=== PATIENT | female | born 1950 | race Caucasian/White ===

== ENCOUNTER 2017-07-02 07:35 | Day surgery (SDC) | payer OTHER ==
--- NOTE | 2017-06-30 22:16 | HP ---
PREOPERATIVE HISTORY AND PHYSICAL: DATE OF SURGERY/ADMISSION: 07/02/17 [facility] DATE OF OFFICE VISIT/ENCOUNTER: 06/30/17 PRIMARY CARE PHYSICIAN: Dr. Lundberg. ATTENDING PHYSICIAN: Saba Foster MD * (DICTATED BY CATHY [place]) PROCEDURE: Open reduction and internal fixation, right wrist. CHIEF COMPLAINT: Right distal radius fracture. HISTORY OF PRESENT ILLNESS: This is a 66-year-old female who sustained injury to her right wrist on or about 06/23/17 when she was visiting family in [place]. She tripped on a sidewalk and fell on an outstretched right hand. She was seen at a hospital at [facility] and had a distal radius fracture reduced. Postreduction x-ray showed improved alignment. She recently followed up with Dr. Foster and updated x- rays showed some early collapse, but otherwise reasonably good alignment. There is a significant ulna positive variance due to the collapse. She does not have any associated numbness or tingling. After evaluation and review of the x-rays by Dr. Foster, it is recommended that the patient undergo an open reduction and internal fixation of the right wrist. The patient has consented to proceed. The patient is currently experiencing chronic cough and is being followed by Dr. Gama, a baggage agent supervisor. She has an appointment with her on 07/19/17. To this point, the workups have been inconclusive. PAST MEDICAL HISTORY: 1. Chronic cough. 2. Osteoarthritis. 3. Peripheral neuropathy with unclear etiology. 4. History of pneumonia in 1994. PAST SURGICAL HISTORY: Appendectomy. MEDICATIONS: Citalopram hydrobromide 40 mg daily. ALLERGIES: No known drug allergies. FAMILY MEDICAL HISTORY: Heart disease, colon cancer, intestinal cancer, and breast cancer. SOCIAL HISTORY: The patient is retired. She denies tobacco and recreational drug use. She does drink alcohol on occasion. REVIEW OF SYSTEMS: General: Negative for fevers, chills, or night sweats. No known anesthesia problems. HEENT: Negative for headache, lightheadedness or syncopal episodes. Integumentary: Negative for abrasions, lesions, or open wounds. Cardiothoracic: Negative for hypertension, chest pain, palpitations, or edema. Pulmonary: Positive for chronic cough. Negative for shortness of breath with exertion or COPD. GI: Negative for nausea, vomiting, diarrhea, constipation or GERD. : Negative for nocturia, urinary frequency, urgency, history of UTIs or kidney problems. Musculoskeletal: Positive for current complaint. Negative for chronic or intermittent back pain or history of fractures. Neurologic: Negative for paresthesias, numbness, history of seizure, stroke or epilepsy. Endocrine: Negative for diabetes and thyroid issues. Hematologic: Negative for easy bruising, anemia, excessive bleeding, or history of DVT. Infectious Disease: Negative for history of MRSA, hepatitis C, and HIV. PHYSICAL EXAMINATION GENERAL: Well-developed, well-nourished 66-year-old female, in no acute distress. VITAL SIGNS: Height 5 feet 7.5 inches, weight 138 pounds, pulse rate 80, blood pressure 108/70. HEENT: Normocephalic, atraumatic. Pupils are equal, round, and reactive to light and accommodation. Throat is clear. NECK: Supple. No palpable lymph nodes. PULMONARY: Lungs are clear to auscultation bilaterally. No wheezes, rales, or rhonchi. CARDIOVASCULAR: Regular rate and rhythm. S1, S2. No murmurs, rubs, or gallops. No edema. ABDOMEN: Positive bowel sounds, soft, nontender. MUSCULOSKELETAL: On exam of her right wrist, she has mild ecchymosis and swelling of the fingers. Arm is maintained in a sugar tong splint. She can move her fingers well in flexion and extension. Neurovascular function is intact. NEUROLOGIC: Alert and oriented x3. Cranial nerves II through XII are intact. Sensation is intact to light touch. IMAGING STUDIES: X-rays AP, lateral and oblique taken of the right wrist show a distal radius fracture with some early collapse. There is significant ulna positive variance, but otherwise recently good alignment. IMPRESSION: Right distal radius fracture with some early collapse. PLAN: The patient is scheduled to undergo an open reduction and internal fixation of the right wrist with Dr. Foster on 07/02/17. She will return to the office in 10 to 14 days postop for followup and suture removal. She has Percocet at home, which was prescribed for her by the emergency room in [place] and we will plan on refilling that if needed for postoperative pain. CATHY [place] [id number]/[facility] #: [id number] [facility] CENTERShana
[~2017-07-02 07:35] MED LIST: Buffered Lidocaine 0.9% SYRIN* 5 ML/SYR SYRINGE INTRADERM ONE; Sodium Citrate/Citric Acid* 15 ML UDC PO ONE
[2017-07-02] MEDS ORDERED: ceFAZolin 2 GM PREMIX (*) 2 GM/50 ML BAG IVPB ONE (07:46)
[2017-07-02] MEDS ORDERED: Sodium Citrate/Citric Acid* 15 ML UDC ONE (07:49)
[2017-07-02] MEDS ORDERED: Bupivacaine 0.5% SDV PF* 30 ML VIAL ONE (08:07)
[2017-07-02] MEDS ORDERED: Buffered Lidocaine 0.9% SYRIN* 5 ML/SYR SYRINGE ONE (08:18)
[2017-07-02] MEDS ORDERED: fentaNYL* 50 MCG/ML 2 ML VIAL (100 MCG VIAL) ONE (08:36)
[2017-07-02] MEDS ORDERED: Propofol* 10 MG/ML 20 ML BTL IV PUSH ONE (08:36)
[2017-07-02] MEDS ORDERED: Ketorolac INJ* 30 MG/ML 1 ML VIAL ONE ×2 (08:36→09:18)
[2017-07-02] MEDS ORDERED: fentaNYL* 50 MCG/ML 2 ML VIAL (100 MCG VIAL) IV PRN (08:46)
[2017-07-02] MEDS ORDERED: DiMENhydriNATE IV* 50 MG/ML VIAL IV PUSH PRN (08:46)
[2017-07-02] MEDS ORDERED: Dexamethasone IV* 4 MG/ML 1 ML (4 MG) ONE (09:05)
[2017-07-02] MEDS ORDERED: oxyCODONE/Acetamin 5/325 MG* TAB ONE (10:38)
[2017-07-02 11:02] VITALS: BP 100/60
--- NOTE | 2017-07-02 15:00 | RAD ---
CPT II Codes: 6045F INDICATION: Right wrist traumatic fracture 2 views of the right wrist demonstrates internal fixation of a distal radius fracture. Approximately 21 seconds of fluoroscopy time was used. IMPRESSION: Fluoroscopic services provided for referring physician for internal fixation distal radius fracture.
--- NOTE | 2017-07-02 23:36 | OP ---
CC: Dr. Foster OPERATIVE REPORT: DATE OF OPERATION: 07/02/17 DATE OF : 54 SURGEON: Saba Foster MD CENTER DIRECTOR LEAD TEACHER: CATHY Mahajan ANESTHESIA: General. PRE-OP DIAGNOSIS: Right distal radius fracture, comminuted and intra-articular. POST-OP DIAGNOSIS: Right distal radius fracture, comminuted and intra-articular. OPERATIVE PROCEDURE: Open reduction and internal fixation of the right distal radius. ESTIMATED BLOOD LOSS: Zero. TOURNIQUET TIME: About 30 minutes. INDICATION FOR PROCEDURE: Starla is a 66-year-old woman who tripped on side walk and fell, injuri ng her right wrist. She had a markedly displaced comminuted intra- articular distal radius fracture . She was seen in the hospital in [facility]. The fracture was reduced. She was splinted and sh tita is followed up with me 1 week later. X-ray at that time showed some early collapse of the fractur e fragments with shortening and loss of palmar tilt. She presents for open reduction and internal f ixation of the right distal radius. DESCRIPTION OF PROCEDURE: The patient was brought to the operating room, was given a general anesth etic and placed in the supine position on the operating table with the tourniquet around her right u pper arm. The skin of her right upper extremity was prepped and draped in the usual sterile fashion . The hand and forearm were exsanguinated and the tourniquet elevated to 250 mmHg. A longitudinal incision was made centered over the FCR tendon. We dissected sharply through the FCR tendon sheath superficial and deep and then retracted the FPL muscle ulnarly. The certified surgical tech/first assistant, Constance ponce, was essential for the completion of the case for retracting the radial artery and tendons. The pronator quadratus muscle was then incised in L-shaped fashion and subperiosteally dissected off th e distal radius. The fracture fragments were reduced with longitudinal traction and manipulation an d then a narrow 3-hole plate from the [employer] distal radius variable angle set was secured with four distal screws and three proximal screws. The position of the hardware and fracture fragments were checked on the C-arm in the AP and lateral views and found to be essentially anatomic. The wound wa s irrigated and the pronator quadratus was repaired over the plate. The flexor carpi radialis sheat h was repaired with 2-0 Vicryl suture and then the skin edges were reapproximated with 4-0 nylon sut ure. The wound was dressed with Xeroform, 4x4, Webril, and a volar splint. The patient tolerated t he procedure well and was brought to the recovery room in good condition. [id number]/[facility] #: [id number]
== END 2017-07-02 11:00 | disposition home or self-care (01) ==
LOC: OREAST 07:35
PROVIDERS: ATTEND Orthopaedic Surgery
DX: S52.571A Other intraarticular fracture of lower end of right radius, initial encounter for closed fracture (principal); W01.0XXA Fall on same level from slipping, tripping and stumbling without subsequent striking against object, initial encounter; Y92.9 Unspecified place or not applicable
CPT/HCPCS: 76000; A9270-GY; C1713; C1776; J0690; J1100; J1885; J2704; J3010

== ENCOUNTER 2018-11-17 18:54 | Observation (INO) | payer OTHER ==
--- OUTSIDE RECORDS SUMMARY | 2018-11-17 19:06 | XMS REPORT | Continuity of Care Document ---
:1950 External Reference #:[id number] Author Name Zuleyka Hung NP Address [address] [facility] [place] [address] Care Team Providers Name Role Phone Ramakrishna Lundberg MD Care Team Information Manufacturing Executive Unavailable Ramakrishna Lundberg MD Primary Care Physician Unavailable Payers Date Identification Numbers Payment Provider Subscriber Effective: 2017 Policy Number: [id number] [employer] Starla Varela PayID: [id number] [address] [place] [address] Advance Directives Description No Information Available Problems Date Description Provider Status Onset: 05/13/2012 Symptom of skin and integumentary Ramakrishna Lundberg M.D. Active tissue Onset: 05/13/2012 Osteoporosis Ramakrishna Lundberg M.D. Active Onset: 05/13/2012 Depressive disorder Ramakrishna Lundberg M.D. Active Onset: 03/24/2013 Idiopathic peripheral neuropathy Ramakrishna Lundberg M.D. Active Onset: 03/24/2013 Hematuria syndrome Ramakrishna Lundberg M.D. Active Onset: 11/05/2014 Acute bronchitis Ramakrishna Lundberg M.D. Inactive Inactive: 01/08/2017 Onset: 11/05/2014 Chest pain Ramakrishna Lundberg M.D. Inactive Inactive: 01/08/2017 Onset: 11/22/2015 Family history of malignant Ramakrishna Lundberg M.D. 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 Inactive thigh Inactive: 01/08/2017 Onset: 04/06/2016 Cough Ramakrishna Lundberg M.D. Inactive Inactive: 01/08/2017 Family History Date Family Member(s) Observation Comments Onset: (age 55 Years) Father [place] smoker, Onset: (age 73 Years) Mother Colon Cancer First Sister Multiple Sclerosis (MS) First Sister Ankylosing Spondylitis Social History Type Date Description Comments Sex Unknown Marital Status Patient is Living Situation Lives with spouse General retired peoples [email or web address] Tobacco Use Start: Unknown Never Smoked Cigarettes ETOH Use Social Alcohol Recreational Drug Use Denies Drug Use Tobacco Use Start: Unknown Patient has never smoked Exercise Type/Frequency Current occ walks, bicycle Allergies, Adverse Reactions, Alerts Date Description Reaction Status Severity Comments 08/13/2006 codeine Active Rash Medications Medication Date Status Form Strength Qnty SIG Indications Ordering Provider Amoxicillin/Clavu 11/17 Active Tablets 875-125mg 14tab take one J15.9 Zuleyka C. lanate Potassium /2018 s by mouth Abhilash, twice DIRECTOR OF EVENT [employer] daily until gone Ondansetron HCL 11/17 Active Tablets 4mg 15tab take one J15.9 Zuleyka C. /2018 s by mouth Abhilash, every 6 [employer]OR OF EVENT [employer]NAGEMENT hours as needed for vomiting Ventolin HFA 11/17 Active Aerosol 108(90Bas 18gm take 1-2 J15.9 Zuleyka C. /2018 e) puffs Abhilash, mcg/Act inhaled [employer] every 4 hours as needed for wheezing or tightness in the chest Citalopram 10/12 Active Tablets 40mg 90tab Take 1 Ramakrishna F. Hydrobromide /2018 s Tablet By Toño Mouth M.D. Every Day Fluocinonide 01/08 Active Cream 0.05% 60gm apply to Ramakrishna F. affected Shallish, area three M.D. times a day Spiriva Respimat 00 Active Aerosol 1.25mcg/A inhale 1 Unknown /0000 ct puff at hs Breo Ellipta 0000 Active Aerosol 100-25mcg 1 puff Unknown /0000 /Inh once in the am Incruse Ellipta Active Aerosol 62.5mcg/I 1 puff Unknown /0000 nh daily Medrol 11/26 Hx Tablets 4mg 1pack dose-pack R05 as Nathan, - instructed EXECUTIVE ASSISTANT 12/11 Tessalon Perles 11/26 Hx Capsules 100mg 30cap one to two R0 s tabs by Nathan, - mouth EXECUTIVE ASSISTANT 11/26 times a day as needed cough Cheratussin ac 11/26 Hx Syrup 100-10mg/ 118ml 5-10 mL by 5ML mouth Nathan, - every EXECUTIVE ASSISTANT 12/11 night at bedtime as needed cough Mometasone 11/21 Hx Cream 0.1% 45gm apply Ramakrishna F. Furoate three Shallish, - times a M.D. 01/08 day as needed Sulfamethoxazole/ 12/06 Hx Tablets 800-160mg 14tab take 1 Ramakrishna F. Trimethoprim s tablet by Toño, - mouth 2 M.D. 12/11 times a day Methylprednisolon 12/06 Hx Tablets 4mg 1tabs as Ramakrishna F. e (Philip) /2014 directed Toño, - M.D. 12/11 Benzonatate 12/06 Hx Capsules 100mg 30cap 1 po tid 466.0 Ramakrishna F. s prn for Toño, - cough M.D. 12/11 Azithromycin 11/05 Hx Tablets 250mg 10tab 2 by mouth Ramakrishna F. s every day Toño, - for 3 M.D. 11/19 days, 1 by mouth every day for 4 days Azithromycin 02/14 Hx Tablets 250mg 6tabs 2 po today 466.0 and 1 tab DEONDRE Melgar - x 4 days 02/19 Tobramycin 02/14 Hx Solution 0.3% 5ml 2 gtts in 372.00 Teresa os tid x Ramón DIRECTOR OF EVENT MANAGEMENT - 7 days 05/09 Benzonatate 02/14 Hx Capsules 100mg 30cap 1 po tid 466.0 Teresa s prn for DEONDRE Melgar - cough 02/24 Celexa 11/18 Hx Tablets 40mg 90tab Take 1 Ramakrishna F. s Tablet By Toño, - Mouth M.D. 10/12 Every Day Zostavax 10/06 Hx Solution [id number]/ 1dose inject Ramakrishna F. Rec 0.65ML [facility], - M.D. 05/09 Doxycycline 06/27 Hx Capsules 100mg 20cap 1 po bid Trisha Hyclate s Juan Luis, - Afnp-C 07/07 Fluocinonide 03/24 Hx Cream 0.05% 30gm apply to Ramakrishna F. affected [facility], - area qd M.D. 06/27 prn Zostavax 03/24 Hx Solution [id number]/ 1dose inject Ramakrishna F. Rec 0.65ML Shallish, - M.D. 06/27 Ergocalciferol 03/24 Hx Capsules [id number] 15cap 1 capsule Ramakrishna F. s po every Shallish, - week for 4 M.D. 09/29 weeks, ,then 1 po qmonth Mometasone 05/13 Hx Cream 0.1% 45gm apply tid Ramakrishna F. Fur prn [facility], - M.D. 03/24 Septra DS 08/23 Hx Tablets 800-160mg 14tab 1 po bid Tray T. s Twin, - M.D. 12/09 Zithromax 07/29 Hx Tablets 250mg 1tabs 2 po qd 466.0 Melba M. /2009 today , Reginald, - then 1 po M.D. 08/07 qd times Robitussin A-C 07/29 Hx 4Oz 1-2 tsp po 466.0 Melba M. q6h prn Reginald, - cough M.D. 08/23 Tessalon Perles 07/15 Hx Capsules 200mg 30cap 1 tid prn Trisha s cough Juan Luis, - Afnp-C 07/25 Doxycline 07/15 Hx Capsules 100mg 20cap 1 po bid Trisha s Juan Luis, - Afnp-C 07/25 Fluocinonide 12/17 Hx Cream 0.05% 30gm apply to Ramakrishna F. affected [facility], - area tid M.D. 04/16 Doxycycline 06/27 Hx Capsules 100mg 2caps 2 p0 x 1 911.4 Trisha Hyclate /2007 Juan Luis, - Afnp-C 06/28 Zyrtec 01/13 Hx Tablets 10mg 30tab 1 po qd 782.1 Crystal gemma Crocker, - EXECUTIVE ASSISTANT 12/17 Boniva 12/11 Hx Tablets 150mg 6tabs 1 po Ramakrishna F. qmonth Phuong Lundberg M.D. 06/18 Fish Oil 05/11 Hx 1000mg 1 PO qd [facility] 05/09 [place] Vitamin E 05/11 Hx Capsules 400Units 0caps 1 PO qd [facility] 09/29 [place] Multivitamin With 05/11 Hx 100un 1 PO qd its [facility] 11/25 [place] Calcium+Vit.D 05/11 Hx 600mg 1 po qd [facility] 09/29 [place] Vicodin 08/13 Hx Tablets 5mg;500 120ta 1 PO Q6H Valerie /2006 mg bs prn Phuong Mejia M.D. 05/11 Calcium Citrate 06/03 Hx Capsules 1,500mg Gera JYash With D And MG. /2005 Of Phuong Blackman CalcYash/D MTayla 05/11 Omacor 06/03 Hx 1Gram 90uni 1 gram tid Gera Gooden /2005 ts Phuong Blackman M.D. 05/11 depression Ciprofloxacin 04/24 Hx Tablets 250mg 10tab 1 po bid x Shaheed Gooden /2005 s 5 days Phuong Pond M.D. 06/03 Fosamax 03/26 Hx Tablets 70mg Gera JYash /2005 Phuong Blackman M.D. 06/03 Actonel 11/30 Hx Tablets 35mg 0tabs 1 PO qweek [facility] 03/26 [place] Fish Oil - [place] 11/30 Hx 1000mg A day Gera JYash 3 Fa. /2005 Phuong Blackman M.D. 06/03 Celexa 01/20 Hx Tablets 40mg 90tab Take 1 Ramakrishna F. s Tablet By Toño - Awilda M.Zackary 09/29 Every Day Bactrim DS 01/09 Hx 6unit 2 PO qd , Trisha s 1 PO bid X [place], - 2 More Afnp-C Levaquin 09/02 Hx 500mg 10uni 1 qd Chayo R ts Casa, - EXECUTIVE ASSISTANT-C 01/09 Pyridium 09/02 Hx 100mg 15uni 1 po tid Chayo ts prn Casa, - EXECUTIVE ASSISTANT-C 01/09 Calcium With Vit 04/25 Hx 600mg 1 bid Gera J. D /2003 Phuong Blackman M.D. 06/03 Trazodone 04/25 Hx 50mg 30uni 1 po qhs Gera J. /2003 Phuong Palmer M.D. 01/09 Diprolene AF 01/22 Hx Cream 0.05% 15gm apply bid Gera J. to rash as Hiral - dir Monica 01/09 Clarinex 01/22 Hx 5mg 30uni 1 qd Gera J. /2003 Phuong Palmer M.D. 01/09 Entex LA 10/03 Hx 20uni 1/2-1 po Trisha /2003 ts bid [place], - prn/sinus Afnp-C 10/13 Lexapro 10/24 Hx 20mg 45uni 1 12 po Gera J. /2002 ts qd Phuong Blackman M.D. 01/20 Klonopin 10/24 Hx 0.5mg 60uni 1 PO bid Gera J. /2002 Phuong Palmer M.D. 03/08 Zoloft 06/12 Hx 25mg 1Star 1 PO qd, Marcellus A. /2001 [employer] To 2 Darlow, - qd In 1 M.D. Work Excuse 10/10 Hx Unable To Tray T. /2001 Work Twin, - 09/29/01-2/ MTayla 01/10 10/11. January Return To Work 11/11/01 Tylenol #3 09/29 Hx #3 30uni 1 Or 2 Q Tray TYash /2001 ts 6H prn Twin - M.DYash 01/10 Naproxen 09/29 Hx 500mg 40uni 1 bid With Tray T. /2001 ts Food prn Twin, - Pain M.D. 01/10 Naproxen 07/13 Hx 375mg Tab 30uni 1 PO tid ts prn Raoul, - Afnp-C 07/23 Forteo Hx Solution 600mcg/2. 20 mcg qd Unknown /0000 4ML - 11/15 Strattera Hx Capsules Unknown /0000 - 10/06 Lexapro Hx Tablets 40mg 1 po qd Unknown /0000 - 02/14 Immunizations CPT Code Status Date Vaccine Lot # [id number] Given 07/07/2018 High-Dose, Influenza Virus Vacccine-fluzone 65 and older [id number] Given 06/15/2017 Influenza vac quadrivalent preservative free 3yrs and up 97230 Given 10/06/2013 Preservative free flu 3 yrs+ and older [id number] 85451 Given 05/13/2012 DO Not Use Split Influenza Virus Vaccine [id number] 87765 Given 06/30/2011 DO Not Use Split Influenza Virus Vaccine [id number] 97898 Given 06/21/2010 DO Not Use Split Influenza Virus Vaccine [id number] 60522 Given 10/01/2009 H1N1 Virus Vaccine [id number] 88311 Given 10/01/2009 H1N1 Immunization Intramuscular/Intranasal W Counseling 67164 Given 06/18/2008 DO Not Use Split Influenza Virus Vaccine [id number] 24780 Given 12/12/2007 Tdap Tetanus, W Pertussis [id number] 55405 Given 07/29/2006 DO Not Use Split Influenza Virus Vaccine [id number] 90713 Given 07/28/2005 DO Not Use Split Influenza Virus Vaccine 80781 Given 04/25/2004 Td Immunization, For Use In Individuals 7 Years Or Older 52526 Given 07/31/2003 DO Not Use Split Influenza Virus Vaccine 65050 Given 07/31/2003 DO Not Use Split Influenza Virus Vaccine 11263 Given 07/08/1999 DO Not Use Split Influenza Virus Vaccine 20585 Given 07/30/1998 Influenza Immunization 92996 Given 07/11/1997 Influenza Immunization Vital Signs Date Vital Result Comment 11/17/2018 1:01pm BP Systolic 120 mmHg BP Diastolic 70 mmHg Heart Rate 68 /min Body Temperature 103.4 F Respiratory Rate 16 /min Weight 136.00 lb 01/27/2018 2:31pm BP Systolic 104 mmHg BP Diastolic 60 mmHg Heart Rate 78 /min Body Temperature 98.1 F Respiratory Rate 16 /min Height 67.5 inches 5'7.50" Weight 142.12 lb BMI (Body Mass Index) 21.9 kg/m2 11/26/2017 12:56pm BP Systolic 102 mmHg BP Diastolic 70 mmHg Heart Rate 106 /min Body Temperature 98.1 F Height 67.5 inches 5'7.50" Weight 141.00 lb BMI (Body Mass Index) 21.8 kg/m2 04/26/2017 8:59am BP Systolic 108 mmHg BP Diastolic 74 mmHg Heart Rate 76 /min Body Temperature 98.6 F Height 67.5 inches 5'7.50" Weight 143.25 lb BMI (Body Mass Index) 22.1 kg/m2 01/08/2017 2:19pm BP Systolic 110 mmHg BP Diastolic 60 mmHg Heart Rate 64 /min Body Temperature 98.2 F Respiratory Rate 16 /min Height 67.5 inches 5'7.50" Weight 143.00 lb BMI (Body Mass Index) 22.1 kg/m2 04/06/2016 11:08am BP Systolic 110 mmHg BP Diastolic 58 mmHg Heart Rate 64 /min Body Temperature 98.8 F Respiratory Rate 16 /min Height 67.5 inches 5'7.50" Weight 145.00 lb BMI (Body Mass Index) 22.4 kg/m2 11/22/2015 10:32am BP Systolic 118 mmHg BP Diastolic 60 mmHg Heart Rate 60 /min Body Temperature 97.9 F Respiratory Rate 16 /min Height 67.5 inches 5'7.50" Weight 143.00 lb BMI (Body Mass Index) 22.1 kg/m2 05/08/2015 9:27am BP Systolic 110 mmHg BP Diastolic 64 mmHg Heart Rate 68 /min Body Temperature 98.0 F Respiratory Rate 16 /min Height 67.5 inches 5'7.50" Weight 145.00 lb BMI (Body Mass Index) 22.4 kg/m2 12/06/2014 1:02pm BP Systolic 114 mmHg BP Diastolic 60 mmHg Heart Rate 66 /min Body Temperature 98.5 F Respiratory Rate 16 /min O2 % BldC Oximetry 97 % Weight 143.12 lb 11/05/2014 4:01pm BP Systolic 110 mmHg BP Diastolic 60 mmHg Heart Rate 84 /min Body Temperature 99.0 F Respiratory Rate 18 /min O2 % BldC Oximetry 97 % Height 67.5 inches 5'7.50" Weight 142.00 lb BMI (Body Mass Index) 21.9 kg/m2 05/09/2014 4:18pm BP Systolic 118 mmHg BP Diastolic 72 mmHg Heart Rate 72 /min Body Temperature 98.1 F Respiratory Rate 16 /min Height 67.5 inches 5'7.50" Weight 136.00 lb BMI (Body Mass Index) 21.0 kg/m2 02/14/2014 9:17am BP Systolic 110 mmHg BP Diastolic 60 mmHg Heart Rate 80 /min Body Temperature 99.0 F Respiratory Rate 16 /min Height 67.5 inches 5'7.50" Weight 136.00 lb BMI (Body Mass Index) 21.0 kg/m2 10/06/2013 1:35pm BP Systolic 112 mmHg BP Diastolic 60 mmHg Heart Rate 72 /min Body Temperature 98.1 F Respiratory Rate 16 /min Height 67.5 inches 5'7.50" Weight 138.00 lb BMI (Body Mass Index) 21.3 kg/m2 09/29/2013 11:57am BP Systolic 100 mmHg BP Diastolic 72 mmHg Heart Rate 84 /min Body Temperature 96.7 F Respiratory Rate 15 /min O2 % BldC Oximetry 99 % Height 67.5 inches 5'7.50" Weight 168.00 lb BMI (Body Mass Index) 25.9 kg/m2 06/27/2013 1:01pm BP Systolic 102 mmHg BP Diastolic 70 mmHg Heart Rate 76 /min Body Temperature 97.7 F Respiratory Rate 18 /min O2 % BldC Oximetry 98 % Height 67.5 inches 5'7.50" Weight 133.00 lb BMI (Body Mass Index) 20.5 kg/m2 03/24/2013 3:52pm BP Systolic 112 mmHg BP Diastolic 70 mmHg Heart Rate 72 /min Body Temperature 97.0 F Respiratory Rate 12 /min Height 67.5 inches 5'7.50" Weight 134.00 lb BMI (Body Mass Index) 20.7 kg/m2 07/19/2012 9:58am BP Systolic 104 mmHg BP Diastolic 60 mmHg Heart Rate 76 /min Body Temperature 97.7 F Height 67.5 inches 5'7.50" Weight 138.00 lb BMI (Body Mass Index) 21.3 kg/m2 05/13/2012 2:51pm BP Systolic 100 mmHg BP Diastolic 70 mmHg Heart Rate 72 /min Body Temperature 97.5 F Height 67.5 inches 5'7.50" Weight 138.00 lb BMI (Body Mass Index) 21.3 kg/m2 12/09/2010 8:31pm BP Systolic 100 mmHg BP Diastolic 60 mmHg Heart Rate 68 /min Respiratory Rate 15 /min Height 67.5 inches 5'7.50" Weight 134.00 lb BMI (Body Mass Index) 20.7 kg/m2 08/23/2010 11:19am BP Systolic 94 mmHg BP Diastolic 60 mmHg Heart Rate 105 /min Body Temperature 98.7 F O2 % BldC Oximetry 96 % Height 67.5 inches 5'7.50" Weight 139.00 lb BMI (Body Mass Index) 21.4 kg/m2 07/29/2010 10:37am BP Systolic 94 mmHg BP Diastolic 60 mmHg Heart Rate 78 /min Body Temperature 97.9 F Respiratory Rate 18 /min O2 % BldC Oximetry 96 % Height 67.5 inches 5'7.50" Weight 136.00 lb BMI (Body Mass Index) 21.0 kg/m2 07/15/2010 10:55am BP Systolic 110 mmHg BP Diastolic 70 mmHg Heart Rate 80 /min Body Temperature 99.7 F Height 67.5 inches 5'7.50" Weight 137.00 lb BMI (Body Mass Index) 21.1 kg/m2 07/12/2010 10:21am BP Systolic 96 mmHg BP Diastolic 62 mmHg Heart Rate 78 /min Body Temperature 98.6 F Height 67.5 inches 5'7.50" Weight 138.00 lb BMI (Body Mass Index) 21.3 kg/m2 04/16/2010 10:50am BP Systolic 92 mmHg BP Diastolic 52 mmHg Heart Rate 78 /min Body Temperature 98.0 F Height 67.5 inches 5'7.50" Weight 136.00 lb BMI (Body Mass Index) 21.0 kg/m2 11/15/2009 10:08am BP Systolic 100 mmHg BP Diastolic 60 mmHg Heart Rate 72 /min Body Temperature 97.7 F Height 67.5 inches 5'7.50" Weight 140.00 lb BMI (Body Mass Index) 21.6 kg/m2 04/18/2009 11:15am BP Systolic 104 mmHg BP Diastolic 60 mmHg Heart Rate 68 /min Height 67.5 inches 5'7.50" Weight 136.00 lb BMI (Body Mass Index) 21.0 kg/m2 12/17/2008 1:13pm BP Systolic 100 mmHg BP Diastolic 60 mmHg Heart Rate 80 /min Respiratory Rate 16 /min Height 67.5 inches 5'7.50" Weight 136.00 lb BMI (Body Mass Index) 21.0 kg/m2 06/27/2008 7:22pm BP Systolic 108 mmHg BP Diastolic 60 mmHg Heart Rate 62 /min Respiratory Rate 12 /min Height 67.5 inches 5'7.50" 06/18/2008 1:00pm BP Systolic 118 mmHg BP Diastolic 62 mmHg Heart Rate 72 /min Body Temperature 98.3 F Height 67.5 inches 5'7.50" Weight 135.00 lb BMI (Body Mass Index) 20.8 kg/m2 01/14/2008 9:58am BP Systolic 100 mmHg BP Diastolic 70 mmHg Heart Rate 64 /min Body Temperature 98.9 F Height 67.5 inches 5'7.50" Weight 135.00 lb BMI (Body Mass Index) 20.8 kg/m2 12/12/2007 9:27am BP Systolic 92 mmHg BP Diastolic 48 mmHg Heart Rate 72 /min Height 67.5 inches 5'7.50" 05/11/2007 3:43pm BP Systolic 96 mmHg BP Diastolic 64 mmHg Heart Rate 76 /min Body Temperature 99.2 F Height 67.5 inches 5'7.50" 08/16/2006 10:23am BP Systolic 100 mmHg BP Diastolic 60 mmHg Heart Rate 76 /min Respiratory Rate 12 /min Height 67.5 inches 5'7.50" Weight 133.00 lb BMI (Body Mass Index) 20.5 kg/m2 08/13/2006 12:49pm BP Systolic 110 mmHg BP Diastolic 60 mmHg Heart Rate 72 /min Height 67.5 inches 5'7.50" Weight 133.00 lb BMI (Body Mass Index) 20.5 kg/m2 06/03/2006 9:55am BP Systolic 78 mmHg BP Diastolic 50 mmHg Heart Rate 60 /min Body Temperature 98.1 F Height 67.5 inches 5'7.50" Weight 133.00 lb BMI (Body Mass Index) 20.5 kg/m2 04/24/2006 12:39pm BP Systolic 98 mmHg BP Diastolic 60 mmHg Heart Rate 84 /min Body Temperature 98.4 F Height 67.5 inches 5'7.50" Weight 133.00 lb BMI (Body Mass Index) 20.5 kg/m2 03/26/2006 1:14pm BP Systolic 92 mmHg BP Diastolic 52 mmHg Heart Rate 68 /min Height 67.5 inches 5'7.50" Weight 128.00 lb BMI (Body Mass Index) 19.7 kg/m2 11/30/2005 2:19pm BP Systolic 102 mmHg BP Diastolic 66 mmHg Heart Rate 68 /min Body Temperature 97.3 F Height 67.5 inches 5'7.50" Weight 130.00 lb BMI (Body Mass Index) 20.1 kg/m2 04/06/2005 8:31pm BP Systolic 116 mmHg BP Diastolic 68 mmHg Heart Rate 64 /min Body Temperature 99.1 F Height 67.5 inches 5'7.50" Weight 130.00 lb BMI (Body Mass Index) 20.1 kg/m2 01/09/2005 10:55am BP Systolic 118 mmHg BP Diastolic 72 mmHg Heart Rate 62 /min Height 67.5 inches 5'7.50" Weight 135.00 lb BMI (Body Mass Index) 20.8 kg/m2 09/02/2004 7:54pm BP Systolic 100 mmHg BP Diastolic 60 mmHg Heart Rate 68 /min Body Temperature 98.7 F Height 67.5 inches 5'7.50" 04/25/2004 3:18pm BP Systolic 74 mmHg BP Diastolic 44 mmHg Heart Rate 72 /min Body Temperature 98.2 F Height 67.5 inches 5'7.50" Weight 126.00 lb BMI (Body Mass Index) 19.4 kg/m2 10/03/2003 7:57pm BP Systolic 110 mmHg BP Diastolic 70 mmHg Body Temperature 98.6 F Height 67.5 inches 5'7.50" 07/31/2003 1:04pm BP Systolic 112 mmHg BP Diastolic 60 mmHg Heart Rate 62 /min Height 67.5 inches 5'7.50" Weight 118.00 lb BMI (Body Mass Index) 18.2 kg/m2 05/02/2003 7:22pm BP Systolic 110 mmHg BP Diastolic 70 mmHg Height 67.5 inches 5'7.50" Weight 113.00 lb BMI (Body Mass Index) 17.4 kg/m2 03/08/2003 10:48am Height 67.5 inches 5'7.50" Weight 114.00 lb BMI (Body Mass Index) 17.6 kg/m2 01/10/2003 6:30pm BP Systolic 92 mmHg BP Diastolic 60 mmHg Height 67.5 inches 5'7.50" Weight 116.00 lb BMI (Body Mass Index) 18.2 kg/m2 12/13/2002 6:35pm BP Systolic 92 mmHg BP Diastolic 60 mmHg Height 67.5 inches 5'7.50" Weight 119.00 lb BMI (Body Mass Index) 18.6 kg/m2 11/16/2002 4:44pm Height 67.5 inches 5'7.50" Weight 121.00 lb BMI (Body Mass Index) 18.9 kg/m2 10/24/2002 10:56am BP Systolic 114 mmHg BP Diastolic 62 mmHg Heart Rate 68 /min Height 67.5 inches 5'7.50" Weight 120.00 lb BMI (Body Mass Index) 18.8 kg/m2 06/12/2002 7:04pm BP Systolic 100 mmHg BP Diastolic 72 mmHg Heart Rate 74 /min Height 67.5 inches 5'7.50" Weight 123.00 lb BMI (Body Mass Index) 19.3 kg/m2 04/25/2002 1:01pm BP Systolic 98 mmHg BP Diastolic 64 mmHg Heart Rate 76 /min Height 67.5 inches 5'7.50" Weight 119.31 lb BMI (Body Mass Index) 18.7 kg/m2 10/10/2001 10:00am BP Systolic 100 mmHg BP Diastolic 60 mmHg Heart Rate 84 /min Height 67.5 inches 5'7.50" Weight 123.50 lb BMI (Body Mass Index) 19.4 kg/m2 09/29/2001 3:13pm Weight 119.00 lb 09/15/2001 3:08pm BP Systolic 88 mmHg BP Diastolic 60 mmHg Heart Rate 70 /min Body Temperature 96.8 F Respiratory Rate 20 /min Weight 118.00 lb 07/13/2000 6:06pm BP Systolic 100 mmHg BP Diastolic 62 mmHg Heart Rate 68 /min Weight 124.00 lb 08/06/1999 10:25am Body Temperature 96.5 F Weight 119.00 lb 06/30/1999 1:55pm BP Systolic 110 mmHg BP Diastolic 70 mmHg Weight 119.00 lb 11/20/1998 2:42pm BP Systolic 96 mmHg BP Diastolic 60 mmHg Weight 125.50 lb 04/16/1998 7:19pm BP Systolic 100 mmHg BP Diastolic 64 mmHg Weight 123.00 lb 02/07/1998 11:18am BP Systolic 92 mmHg LA SM Cuff BP Diastolic 58 mmHg LA SM Cuff Height 67.5 inches 5'7.50" Weight 126.00 lb 10/09/1997 12:00am BP Systolic 110 mmHg BP Diastolic 60 mmHg Heart Rate 8080 /min Body Temperature 97.5 F Respiratory Rate 2020 /min Height 67.00 inches 5'7" Weight 124.00 lb Right Visual Acuity Distance 20/20/20 With Glasses Left Visual Acuity Distance 20/20/20 Results Test Date Facility Test Result H/L Range Note Pbx Mechanic Pap Test Age-Based 04/26/2017 [facility] Age 30-65 1 GL Cerv CA & STDS [address] [place] [address] ([phone] - Age 0804/26/2017 [facility] Age 30-65 [address] [place] [address] (607)- - Diagn See Comment: 2 Adeq See Comment: 3 [email or web address] See Comment: 4 Perfor See Comment: 5 Comm . Note See Comment: 6 Iglbp See Comment: 7 HPV Aptima Negative Negative 8 Laboratory test 04/26/2017 [facility] PDF [id number] SEE IMAGE finding [address] [place] [address] ([phone] - Ua - Micro ([facility]) 01/08/2017 [facility] Appearance slt cloudy (607)- - Color yellow Glucose, Urine (Fma/CMC/CTX) - Bilirubin - Ketones - SP Grav 1.025 Blood moderate # PH 5.0 Protein - Urobil 0.2 Nitrite - Leukocytes ([facility]ma/CMC/Centrex) small # Hyaline - /Lpf Granular - /Lpf WBC (Fma,Centrex) 8-10 RBC 1-3 Mucus sm amt /Lpf Epith few /Lpf Bacteria 1+ /Hpf Amorphous - /Lpf Crystals, Fluid ([facility]ma/CMC/CTX) - Complete Blood Count 01/08/2017 Patel Dupree ([facility]) WBC 6.9 x10^3/UL 3.6-9.6 RBC 4.36 x10^6/UL 3.90-5.70 HGB 13.7 g/dL 12.1-17.2 HCT 40 % 36-50 MCV 93.0 fL 82.2-97.4 MCH 31.5 pg 27.6-33.3 MCHC 34.1 g/dL 33.0-35.5 RDW 13.5 % 11.6-13.7 PLT 309 x10^3/UL 150-400 MPV 6.9 fL Low 7.4-10.4 Gran # 4.6 x10^3/UL 1.5-7.2 Lymph# 2.0 x10^3/UL 0.7-4.9 Sutter# 0.3 x10^3/UL 0.1-0.9 Gran % 65.2 % 42.2-75.2 Lymph % 30.2 % 20.5-51.1 [place]utter% 4.6 % 1.7-9.3 Comprehensive Metabolic 01/08/2017 Patel Dupree (a) Sodium 139 mEq/L 134-149 Prof Potassium 4.1 mEq/L 3.6-5.5 Chloride 102 mEq/L 94-112 Carbon Dioxide 24 mEq/L 21-32 Glucose 94 mg/dL 70-105 BUN 17 mg/dL 6-26 Creatinine 0.8 mg/dL 0.6-1.4 BUN/Creat Ratio 21.3 CALC 8.0-36.0 Calcium 9.4 mg/dL 8.6-10.2 Total Protein 6.9 g/dL 6.4-8.3 Albumin 4.6 g/dL 3.8-5.5 Globulin 2.3 g/dL 2.0-4.8 A/G Ratio 2.0 CALC 0.6-2.3 Alk. Phosphatase 72 U/L 30-110 Alt (SGPT) 9 U/L 7-35 Ast (Sgot) 15 U/L 5-34 Total Bilirubin 0.3 mg/dL 0.2-1.3 GFR Non- >60 ml/min/1.73m^ >=60 GFR >60 ml/min/1.73m^ >=60 Lipid Profile 01/08/2017 Patel Dupree ([facility]) Cholesterol 299 mg/dL High 120-200 Triglycerides 98 mg/dL 30-200 HDL Cholesterol 94 mg/dL High 30-85 LDL (Calculated) 185 CALC High 0-129 VLDL Cholesterol 20 mg/dL 0-50 HDL Risk Factor 3.2 CALC 0.0-4.4 Laboratory test 01/08/2017 Patel Leia ([facility]) TSH 1.69 mIU/L 0.50- 6.00 finding Connective Tissue 04/06/2016 [facility] [place] Anti-Nuclear 0.4 U N 9 Panel Antibody Cyclic Citrullinated Peptide <15.6 U N 10 Interpretation See Comment N 11 Laboratory test finding 04/06/2016 [facility] [place] C Reactive Protein < 1.00 mg/L N < 5.00 12 Lyme Disease Serology Negative N Negative 13 Complete Blood Count 11/05/2014 Sweeney Flora ([facility]) WBC 7.6 x10^3/UL 3.6-9.6 RBC 4.11 x10^6/UL 3.90-5.70 HGB 13.0 g/dL 12.1-17.2 HCT 39 % 36-50 MCV 95.0 fL 82.2-97.4 MCH 31.7 pg 27.6-33.3 MCHC 33.4 g/dL 33.0-35.5 RDW 11.5 % Low 11.6-13.7 PLT 246 x10^3/UL 150-400 MPV 6.6 fL Low 7.4-10.4 Gran # 5.0 x10^3/UL 1.5-7.2 Lymph# 2.3 x10^3/UL 0.7-4.9 Sutter# 0.3 x10^3/UL 0.1-0.9 Gran % 64.2 % 42.2-75.2 Lymph % 30.8 % 20.5-51.1 Sutter% 5.0 % 1.7-9.3 Comprehensive Metabolic 11/05/2014 Patel Leia ([facility]) Sodium 139 mEq/L 134-149 Prof Potassium 4.1 mEq/L 3.6-5.5 Chloride 103 mEq/L 94-112 Carbon Dioxide 28 mEq/L 21-32 Glucose 103 mg/dL 70-105 BUN 18 mg/dL 6-26 Creatinine 0.6 mg/dL 0.6-1.4 BUN/Creat Ratio 30.0 CALC 8.0-36.0 Calcium 8.8 mg/dL 8.6-10.2 Total Protein 7.2 g/dL 6.4-8.3 Albumin 4.7 g/dL 3.8-5.5 Globulin 2.5 g/dL 2.0-4.8 A/G Ratio 1.9 CALC 0.6-2.3 Alk. Phosphatase 64 U/L 30-110 Alt (SGPT) 9 U/L 7-35 Ast (Sgot) 15 U/L 5-34 Total Bilirubin 0.3 mg/dL 0.2-1.3 Laboratory test finding 11/05/2014 Sweeney Leia ([facility]) TSH 1.76 mIU/L 0.50-6.00 Free T4 0.98 ng/dL 0.75-1.54 Ua - Non Micro (a) 05/09/2014 Family Medicine Appearance CLEAR (607)- - Color YELLOW Glucose NEG Bilirubin NEG Ketones 15MG/DL # SP Grav >=1.030 Blood MOD # See Comments 14 PH 5.5 Protein NEG Urobil 0.2 Nitrite NEG Leukocytes (Fma/[facility]) NEG Urinalysis W/Microscopic 11/03/2013 [facility] Urine Color Yellow Urine Appearance Clear Urine Specific Tie Siding 1.014 1.010-1.030 Urine Esterase Trace Abnormal Negative Urine Nitrate Negative Negative Urine Urobilinogen Negative E.U./dL Negative Urine Protein Negative mg/dL Negative Urine pH 6.5 5-9 Urine Blood 1+ Abnormal Negative Urine Ketones Negative mg/dL Negative Urine Bilirubin Negative Negative Urine Glucose Negative mg/dL Negative Urine Casts 1+ Hyaline /lpf None Seen Urine WBC None Seen None Seen Urine RBC 1+ (<3 /hpf) None Seen Urine Mucus Present /lpf Absent Urine Epithelial Cells 3+ Squamous /hpf None Seen Bacteria Urine 1+ None Seen Laboratory test 10/06/2013 Sweeney Leia ([facility]) Vitamin D25 33.7 ng/mL 30.0-100.0 finding Free T4 0.86 ng/dL 0.75-1.54 Comprehensive Metabolic 10/06/2013 Sweeney Leia ([facility]) Albumin 5.3 g/dL 3.8-5.5 Prof Alk. Phos. 72 U/L 30-110 Alt (SGPT) 10 U/L 7-35 Ast (Sgot) 16 U/L 5-34 BUN 13 mg/dL 6-26 Calcium 10.0 mg/dL 8.6-10.2 Chloride 100 mEq/L 94-112 Creatinine 0.8 mg/dL 0.6-1.4 Carbon Dioxide 28 mEq/L 21-32 Glucose 91 mg/dL 70-105 Sodium 141 mEq/L 134-149 Total Bilirubin 0.4 mg/dL 0.2-1.3 Total Protein 7.6 g/dL 6.3-8.1 Potassium 3.8 mEq/L 3.6-5.5 Globulin 2.3 g/dL 2.0-4.8 A/G Ratio 2.3 Calc 0.6-2.3 BUN/Creat Ratio 16.8 Calc 8.0-36.0 Laboratory 10/06/2013 [facility] N-Telopeptide 24.2 High 6.2-19.0 test finding 28 [facility] Serum nmolBCE/[place] [address] [phone] CBC 10/06/2013 [facility] Medicine WBC 6.9 3.6-9.6 Electronic (607)- - (Fma) RBC 4.48 3.90-5.70 Hemoglobin (Fma/[facility]/CTX) 14.2 g/dL 12.1 - 17.2 Hematocrit (Fma/CMC/CTX) 42.0 % 36.1 - 50.3 Platelets 291 10^3/ul 150-400 Lymph% 35.3 % 17.0-48.0 Mixed% 5.6 Neutrophils % 59.1 Mean Corpuscular Vol 94 82.2-97.4 Mean Corpuscular Hemoglobin 31.6 27.6-33.3 Mean Corpuscular Hemo Concen 33.7 32.0-36.0 RDW 12.1 11.6-13.7 Mean Platelet Volume 6.4 Low 6.5-11.0 Basic Metabolic Panel 08/02/2013 [facility] Sodium 141 mmol/L 133-145 Potassium 4.0 mmol/L 3.5-5.0 Chloride 104 mmol/L 101-111 Co2 Carbon Dioxide 30.0 mmol/L 22-32 Anion Gap 7.0 mmol/L 2-11 Glucose 116 mg/dL High 70-100 Blood Urea Nitrogen 11 mg/dL 6-24 Creatinine 0.60 mg/dL 0.50-1.40 BUN/Creatinine Ratio 18.3 8-20 Calcium 9.3 mg/dL 8.1-9.9 Egfr Non- 102.0 >60 Egfr 131.1 >60 15 Ua - Micro (Fma) 04/07/2013 [facility] Medicine Appearance clear (607)- - Color yellow Glucose, Urine (Fma/[facility]/CTX) - Bilirubin - Ketones - SP Grav 1.020 Blood moderate # PH 5.5 Protein - Urobil 0.2 Nitrite - Leukocytes (Fma/[facility]) trace # Hyaline - /Lpf Granular - /Lpf WBC (Fma,[facility]) 3-5 # RBC 5-8 # Mucus (Fma/[facility]) - /Lpf Epith occ /Lpf # Bacteria trace /Hpf # Amorphous (Fma/[facility]) - /Lpf Crystals, Fluid (Fma/[facility]/CTX) ca oxilate # ca oxilate seen Z#Comments - Laboratory test 07/19/2012 [facility] Thin Prep SEE [address] W/HPV(Lsil/ARLEEN/Asc) NOTE [place] [id number] [phone] Comprehensive 07/19/2012 Patel Leia (a) Albumin 5.0 3.8 Metabolic Prof g/dL -5. 5 Alk. Phos. 64 U/L 30-110 Alt (SGPT) 9 U/L 7-35 Ast (Sgot) 16 U/L 5-34 BUN 15 mg/dL 6-26 Calcium 9.4 mg/dL 8.6-10.2 Chloride 105 mEq/L 94-112 Creatinine 0.7 mg/dL 0.6-1.4 Carbon Dioxide 25 mEq/L 21-32 Glucose 93 mg/dL 70-105 Sodium 138 mEq/L 134-149 Total Bilirubin 0.6 mg/dL 0.2-1.3 Total Protein 7.0 g/dL 6.3-8.1 Potassium 4.1 mEq/L 3.6-5.5 Globulin 2.0 g/dL 2.0-4.8 A/G Ratio 2.5 Calc High 0.6-2.2 BUN/Creat Ratio 20.3 Calc 8.0-36.0 Lipid Profile 07/19/2012 Patel Leia (a) Cholesterol 320 mg/dL High 120-200 HDL 74 mg/dL 30-85 Triglycerides 105 mg/dL 30-200 HDL Risk Factor 4.3 CALC 0.0-4.4 LDL (Calculated) 225 CALC High 0-129 VLDL (Calculated) 21 mg/dL 0-50 Laboratory test 07/19/2012 Sweeney Leia ([facility]) TSH 1.43 mIU/L 0.50- 6.00 finding Laboratory test 07/19/2012 [facility] Vitamin D, 25 21.4 ng/mL Low 30.0- 100.0 17 finding 28 [place] [address] [phone] CBC Electronic 07/19/2012 [facility] WBC 5.6 3.6-9.6 ([facility]) (607)- - RBC 4.27 3.90-5.70 Hemoglobin (Fma/[facility]/CTX) 13.4 g/dL 12.1 - 17.2 Hematocrit (Fma/[facility]/CTX) 40.2 % 36.1 - 50.3 Platelets 276 10^3/ul 150-400 Lymph% 34.4 20.5-51.1 Mixed% 8.6 Neutrophils % 57.0 Mean Corpuscular Vol 94 82.2-97.4 Mean Corpuscular Hemoglobin 31.3 27.6-33.3 Mean Corpuscular Hemo Concen 33.3 32.0-36.0 RDW 13.8 High 11.6-13.7 Mean Platelet Volume 6.4 Low 6.5-11.0 Ua - Non Micro (a) 07/19/2012 [facility] Appearance CLEAR (607)- - Color YELLOW Glucose, Urine (Fma/[facility]/CTX) NEG Bilirubin NEG Ketones NEG SP Grav 1.020 Blood MODERATE # Done After Pap PH 7.0 Protein NEG Urobil 1.0 Nitrite NEG Leukocytes (a/[facility]) NEG Complete Blood Count 12/17/2008 Sweeney Leia (a) WBC 7.1 x10^3/uL 3.6-9.6 Gran# 4.5 x10^3/uL 1.5-7.2 Gran% 62.8 % 42.2-75.2 HCT 37 % 36-50 HGB 12.6 g/dL 12.1-17.2 Lymph# 2.2 x10^3/uL 0.7-4.9 Lymph% 31.6 % 20.5-51.1 MCH 31.0 pg 27.6-33.3 MCV 90.6 fL 82.2-97.4 MCHC 34.3 g/dL 33.0-35.5 Mo# 0.4 x10^3/uL 0.1-0.9 Mo% 5.6 % 1.7-9.3 MPV 7.4 fL 7.4-10.4 PLT 279 x10^3/uL 150-400 RBC 4.05 x10^6/uL 3.90-5.70 RDW 12.2 % 11.6-13.7 Comprehensive Metabolic 12/17/2008 Patel Leia (a) Albumin 4.9 g/dL 3.8-5.5 Prof Alk. Phos. 73 U/L 30-110 Alt (SGPT) 8 U/L 7-35 Ast (Sgot) 23 U/L 5-34 BUN 21 mg/dL 6-26 Calcium 9.8 mg/dL 8.6-10.2 Chloride 105 mEq/L 94-112 Creatinine 0.7 mg/dL 0.6-1.4 Carbon Dioxide 28 mEq/L 21-32 Glucose 93 mg/dL 70-105 Sodium 145 mEq/L 134-149 Total Bilirubin 0.5 mg/dL 0.2-1.3 Total Protein 7.3 g/dL 6.3-8.1 Potassium 4.5 mEq/L 3.6-5.5 Globulin 2.4 g/dL 2.0-4.8 A/G Ratio 2.0 Calc 0.6-2.2 BUN/Creat Ratio 30.2 Calc 8.0-36.0 Laboratory test 12/17/2008 Sweeney Leia (a) Free T4 1.09 ng/dL 0.75- 1.54 finding TSH 1.20 mIU/L 0.50-6.00 Laboratory test 12/17/2008 [facility] Sed Rate 14mm finding (607)- - (Fma/[facility]) Calcium 24HR 10/24/2008 [facility] Calcium Random Urine 20.2 mg/dL 18 Urine Urine Calcium/24HR 363.6 MG/24HR 50-400 Hours Of Collection 24 HR 24- Urine Volume Measurement 1800 ML Laboratory test finding 10/22/2008 [facility] Calcium 9.1 mg/dL 8.1-9.9 19 Phosphorus 3.2 mg/dL 2.4-4.7 Magnesium 2.5 mg/dL 1.7-2.6 Alkaline Phosphatase 50 U/L 30-110 Vitamin B12 487 pg/mL 180-914 Cortisol 17.2 g/dL 20 Vitamin D, 25 Hydroxy 10/22/2008 [facility] 25-Hydroxy Vitamin D2 <4.0 ng/mL ( ) 25-Hydroxy Vitamin D3 42 ng/mL () 25-Hydroxy Vitamin D Total 42 ng/mL () 21 Laboratory test 06/25/[facility] [employer] REPORT Lipid Profile 12/12/2007 Patel Leia (a) Cholesterol 281 mg/dL High 120-20 0 HDL 88 mg/dL High 30-85 Triglycerides 105 mg/dL 30-200 HDL Risk Factor 3.2 CALC Low 4.2-7.0 LDL (Calculated) 172 CALC High 0-129 VLDL (Calculated) 21 mg/dL 0-50 Comprehensive Metabolic 12/12/2007 Patel Leia ([facility]) Albumin 4.3 g/dL 3.8-5.5 Prof Alk. Phos. 63 U/L 30-110 Alt (SGPT) 10 U/L 7-35 Ast (Sgot) 21 U/L 5-34 BUN 20 mg/dL 6-26 Calcium 9.1 mg/dL 8.6-10.2 Chloride 103 mEq/L 94-112 Creatinine 0.9 mg/dL 0.6-1.4 Carbon Dioxide 26 mEq/L 21-32 Glucose 75 mg/dL 70-105 Sodium 139 mEq/L 134-149 Total Bilirubin 0.3 mg/dL 0.2-1.3 Total Protein 7.3 g/dL 6.3-8.1 Potassium 4.6 mEq/L 3.6-5.5 Globulin 2.9 g/dL 2.0-4.8 A/G Ratio 1.5 Calc 0.6-2.2 BUN/Creat Ratio 22.9 Calc 8.0-36.0 Laboratory test finding 12/12/2007 Patel Leia (a) TSH 1.72 mIU/L 0.50-6.00 Complete Blood Count 12/12/2007 Sweeney Leia (a) WBC 7.7 x10^3/u 3.6 -9.6 Gran# 5.3 x10^3/u 1.5-7.2 Gran% 69.3 % 42.2-75.2 HCT 42 % 36-50 HGB 13.9 g/dL 12.1-17.2 Lymph# 2.0 x10^3/u 0.7-4.9 Lymph% 26.0 % 20.5-51.1 MCH 32.3 pg 27.6-33.3 MCV 97.5 fL High 82.2-97.4 MCHC 33.1 g/dL 33.0-35.5 Mo# 0.4 x10^3/u 0.1-0.9 Mo% 4.7 % 1.7-9.3 MPV 7.8 fL 7.4-10.4 PLT 283 x10^3/u 150-400 RBC 4.32 x10^6/u 3.90-5.70 RDW 12.4 % 11.6-13.7 Ua - Micro ([facility]) 08/16/2006 [facility] Medicine Appearance CLEAR (607)- - Color LIGHT YELLOW Glucose NEGATIVE Bilirubin NEGATIVE Ketones NEGATIVE SP Grav 1.010 Blood 2+ High P.M.P PH 8.0 Protein, Random Urine SSA NEGATIVE Urobil 0.2 Nitrite NEGATIVE Leukocytes (Fma/[facility]) 2+ Hyaline - /Lpf Granular - /Lpf WBC, Fluid >100 RBC, Fluid >100 Mucus - /Lpf Epith OCC /Lpf Bacteria TRACE /Hpf Amorphous - /Lpf Crystals, Urine (Fma/CMC/CTX) - /Lpf Misc - Laboratory test 06/03/2006 [facility] C-Reactive <0.1 mg/dL 0.0-0.5 22 finding 28 [facility] [place] [address] [phone] Comp Metabolic 06/03/2006 [facility] Glucose, Serum 89 mg/dL 70- 105 ([facility]) Female (607)- - (Fma/[facility]/CTX) BUN (Fma/[facility]) 14 mg/dL 6-26 Creatinine, Serum 0.8 mg/dL 0.6-1.4 BUN/Creatinin Ratio 17.6 8.0-36 Sodium 143 134-149 Potassium 4.3 3.6-5.5 Chloride 100 mEq/L 94-112 Co2 29 21-32 Calcium (Fma/[facility]) 9.3 mg/dL 8.6-10.2 Total Protein 7.2 g/dL 6.3-8.1 Albumin (Fma/[facility]) 4.4 3.8-5.5 Globulin 2.8 2.0-4.8 A/G Ratio (A/G Ratio) 1.5 0.6-2.2 Alkaline Phosphatase (F/C/CTX) 40 U/L 30-110 Alt (SGPT) Female ([facility]) 10 7-35 Ast Sgot 16 U/L 5-34 Bilirubin, Total 0.4 mg/dL 0.2-1.3 Laboratory test 06/03/2006 [facility] TSH ([facility]) 0.73 uIU/ ml 0.5-6.0 finding (607)- - Free T4 (a/[facility]) 1.26 ng/dL 0.75-1.54 Free T3 ([facility],CX) 2.68 pg/mL 2.0-4.9 Sed Rate (a/[facility]) 7 MM CBC ([facility]) ([facility]) 06/03/2006 [facility] WBC 6.1 3.6-9.6 (607)- - Lymphocytes 26.4 % 20.5 - 51.1 Monocytes 5.5 % 1.7-9.3 Granulocytes 68.1 % 42.2 - 75.2 Lymphocytes 1.6 10^3/uL 0.7 - 4.9 Monocytes 0.3 10^3/uL 0.1 - 0.9 Granulocytes 4.2 10^3/uL 1.5 - 7.2 RBC 4.13 3.90-5.70 Hemoglobin (a/CMC/CTX) 12.9 g/dL 12.1 - 17.2 Hematocrit (a/CMC/CTX) 38.5 % 36.1 - 50.3 Mean Corpuscular Vol 93.2 82.2-97.4 Mean Corpuscular Hemaglobin 31.2 27.6-33.3 Mean Corpuscular Hemo Concen 33.4 33.0-36.0 RDW 12.4 11.6-13.7 Platelets 241. 10^3/ul 150-400 Mean Platelet Volume 7.8 7.4-10.4 Ua - Micro ([facility]) 06/03/2006 [facility] Appearance CLEAR (607)- - Color LT YELLOW Glucose NEG Bilirubin NEG Ketones NEG SP Grav 1.020 Blood 2+ PH 6.0 Protein, Random Urine NEG Urobil 0.2 Nitrite NEG Leukocytes (Fma/[facility]) 2+ Hyaline - /Lpf Granular - /Lpf WBC, Fluid 15-20 RBC, Fluid 2-4 Mucus SM AMT /Lpf Epith FEW /Lpf Bacteria TRACE /Hpf Amorphous - /Lpf Crystals, Urine (Fma/[facility]/CTX) - /Lpf Misc NOT A CLEAN CATCH Ua - Micro ([facility]) 04/24/2006 Family Medicine Appearance TURBID (607)- - Color LIGHT YELLOW Glucose NEGATIVE Bilirubin NEGATIVE Ketones TRACE # SP Grav 1.015 Blood 3+ High Post [place]uja PH 7.5 Protein, Random Urine NEGATIVE Urobil 0.2 Nitrite NEGATIVE Leukocytes (a/[facility]) 2+ # Hyaline - /Lpf Granular - /Lpf WBC, Fluid >75 SOME CLUMPED RBC, Fluid 25-30 Mucus - /Lpf Epith OCC /Lpf Bacteria TRACE /Hpf Amorphous - /Lpf Crystals, Urine (Fma/[facility]/CTX) - /Lpf Misc - Ua - Micro ([facility] New) 01/09/2005 Family Medicine Appearance CLOUDY (607)- - Color LT YELLOW Glucose NEG Bilirubin NEG Ketones NEG SP Grav 1.010 Blood NEG PH 8.0 Protein NEG Urobil 0.2 Nitrite NEG Leukocytes 2+ Hyaline - /Lpf Granular - /Lpf WBC'S TNTC RBC'S 1-3 Mucus - /Lpf Epith MANY Bacteria 3+ Amorphous - /Lpf Crystals - /Lpf Comments - Ua - Micro ([facility]) 09/02/2004 Family Medicine Appearance CLOUDY (607)- - Color ORANGE Glucose NEG Bilirubin NEG Ketones TRACE SP Grav >1.030 Blood 3+ PH 5.0 Protein SSA +2 Urobil 1.0 Nitrite NEG Leukocytes 1+ Hyaline - /Lpf Granular - /Lpf WBC'S 60-70 RBC'S 20-30 Mucus SM AMNT /Lpf Epith MOD Bacteria 1+ Amorphous - /Lpf Crystals - /Lpf Comments - Comp Metabolic 05/13/2004 [facility] Medicine Glucose, Serum 89 mg/dL 70- 118 ([facility]) Female (607)- - (Fma/[facility]/CTX) BUN (a/[facility]) 18 mg/dL 6-26 Creatinine, Serum 0.8 mg/dL 0.6-1.4 BUN/Creatinin Ratio 22.2 8.0-36 Sodium 139 134-149 Potassium 4.0 3.6-5.5 Chloride 102 mEq/L 94-112 Co2 27 21-32 Calcium (a/[facility]) 9.4 mg/dL 8.6-10.2 Total Protein 6.8 g/dL 6.3-8.1 Albumin (a/[facility]) 4.4 3.8-5.5 Globulin 2.5 2.0-4.8 A/G Ratio (A/G Ratio) 1.8 0.6-2.2 Alkaline Phosphatase (F/C/CTX) 67 U/L 30-110 Alt (SGPT) 14 10-40 Ast (Sgot) (a/[facility]) 20 U/mL 5-34 Bilirubin, Total 0.5 mg/dL 0.2-1.3 Lipid Profile ([facility]) 05/13/2004 [facility] Cholesterol 270 mg/dL High 120-200 Female (607)- - Triglyceride 71 mg/dL 30-200 HDL-Chol 113 mg/dL High 30-85 LDL, Calculated (a/[facility]) 143 CALC High 0-129 LDL, Direct - mg/dL 0-130 VLDL 14 0-50 HDL Risk Factor ([facility]) 2.4 CALC Low 4.2-7.0 Laboratory test 05/13/2004 [facility] TSH (a/[facility]) 2.64 uIU/ ml 0.5-6.0 finding (607)- - CBC Electronic 05/13/2004 [facility] WBC 5.7 3.6-9.6 ([facility]) (607)- - Lymphocytes 34.6 % 20.5 - 51.1 Monocytes 6.5 % 1.7-9.3 Granulocytes 58.9 % 42.2 - 75.2 Lymphocytes 2.0 10^3/uL 0.7 - 4.9 Monocytes 0.4 10^3/uL 0.1 - 0.9 Granulocytes 3.4 10^3/uL 1.5 - 7.2 RBC 3.86 Low 3.90-5.70 Hemoglobin (Fma/[facility]/CTX) 12.9 g/dL 12.1 - 17.2 Hematocrit (Fma/[facility]/CTX) 37.9 % 36.1 - 50.3 Mean Corpuscular Vol 98.2 High 82.2-97.4 Mean Corpuscular Hemaglobin 33.3 27.6-33.3 Mean Corpuscular Hemo Concen 33.9 33.0-35.5 RDW 12.6 11.6-13.7 Platelets 199. 10^3/ul 150-400 Mean Platelet Volume 7.7 7.4-10.4 Ua - Micro ([facility]) 05/13/2004 Family Medicine Appearance CLEAR (607)- - Color YELLOW Glucose NEG Bilirubin NEG Ketones NEG SP Grav 1.010 Blood NEG PH 8.0 Protein NEG Urobil 0.2 Nitrite NEG Leukocytes 2+ Hyaline - /Lpf Granular - /Lpf WBC'S 6-8 RBC'S - Mucus - /Lpf Epith FEW Bacteria TRACE Amorphous SM AMT /Lpf Crystals - /Lpf Comments - Comp Metabolic ([facility]) 06/25/2002 [facility] Albumin 4.9 3.8-5.5 (607)- - Alkaline Phosphatase 60 U/L 36-117 Bilirubin, Total 0.8 mg/dL 0.2-1.3 BUN 16 7-26 Calcium 9.4 mg/dL 8.6-10.0 Creatinine 0.7 mg/dL 0.6-1.4 Glucose 90 mg/dL 70 - 118 Ast Sgot 17 U/L 5-40 Alt (SGPT) 12 10-40 Total Protein 7.2 g/dL 6.4-8.3 Sodium 145 134-149 Potassium 4.4 3.6-5.5 Chloride 104 mEq/L 94-112 Co2 26 21-32 Globulin 2.3 2.0-4.8 Albumin / Globulin Ratio 2.1 0.6-2.2 BUN/Creatinin Ratio 22.9 8.0-36 Lipid Profile ([facility]) 06/25/2002 [facility] Cholesterol 245 mg/dL High 140-200 (607)- - Triglyceride 95 mg/dL 30-150 VLDL 19 0-50 LDL-Calculated 126 0-160 HDL-Chol 100 High 35-85 CBC With Diff ([facility]) 06/25/2002 [facility] WBC 6.3 3.6-9.6 (607)- - Lymphocytes 30.2 % 20.5 - 51.1 Monocytes 5.7 % 1.7-9.3 Granulocytes 64.1 % 42.2 - 75.2 Lymphocytes 1.9 10^3/uL 0.7 - 4.9 Monocytes 0.4 10^3/uL 0.1 - 0.9 Granulocytes 4.0 10^3/uL 1.5 - 7.2 RBC 4.31 3.90-5.70 Hemoglobin 13.6 g/dL 12.1 - 17.2 Hematocrit 39.3 % 36.1 - 50.3 Mean Corpuscular Vol 91.2 82.2-97.4 Mean Corpuscular Hemaglobin 31.6 27.6-33.3 Mean Corpuscular Hemo Concen 34.6 33.0-34.8 RDW 12.7 11.6-13.7 Platelets 239 10^3/ul 150-400 Mean Platelet Volume 8.2 7.4-10.4 Laboratory test finding 06/21/2002 [facility] FSH 82.7 mIU/ml 23, 24 28 [place] [id number] [phone] LH 38.7 mIU/ml 25 Ua - Non Micro (a New) 06/12/2002 Family Medicine Appearance CLEAR DK YELLOW (607)- - Glucose NEGATIVE Bilirubin NEGATIVE Ketones NEGATIVE SP Grav >=1.030 Blood 3+ PH 5.0 Protein SSA 1+ Urobil 0.2 Nitrite NEGATIVE Leukocytes NEGATIVE Laboratory test finding 08/21/1999 [facility] Urine Culture NEGATIVE (607)- - Ua - Micro (a Old) 08/06/1999 Family Medicine Appearance YELLOW/CLOUDY (607)- - SP Grav 1.030 Esterase 1+ Nitrite - pH 5.0 Protein 2+ Glucose - Ketones - Urobil - Bilirubin - Blood 4+ Hyaline - /Lpf Granular - /Lpf WBC'S 20-30 RBC'S >100 Mucus - /Lpf Epith FEW Bacteria 1+ Amorphous - /Lpf Crystals - /Lpf Comments - Serum Immunofix 07/28/1999 [facility] Spep Albumin 4.61 3.2-5.3 Alpha 1 0.25 GM/DL 0.1-0.4 Alpha 2 0.79 GM/DL 0.4-1.0 Beta 1.00 mg/dL 0.5-1.1 Gamma 0.96 GM/DL 0.00-1.7 Albumin% 60.7 % 52-65 Alpha 1% 3.3 % 2.5-5 Alpha 2% 10.4 % 7-13 Beta% 13.2 % 8-14 Gamma% 12.6 % 12-22 A/G Ratio 1.5 0.9-2 Total Protein 7.6 GM/DL 6.2-8.1 Spep Comments SEE DETAIL See Report 26 Serum Immunofix SEE DETAIL 27 Laboratory test finding 07/24/1999 [facility] B12 503 pg/mL 190-1000 Folic Acid 14.4 NG/ML 2-16 Sed Rate 4 MM/HR 0-15 Hemoglobin A1c 5.1 % 4.3-5.8 Protime 07/02/1999 [facility] Protime 11.0 9.0-11.5 (607)- - Inr 1.1 Iron 3 Ibc 07/02/1999 [facility] Iron, Total 78 25-170 (607)- - Tibc 281 200-450 Iron Saturation Percent 28 12-57 Laboratory test 07/02/1999 [facility] Partial 24 20-34 finding (607)- - Thomboplastin Time CBC With Diff 07/02/1999 [facility] WBC 6.2 /Hpf 3.6 - 9.6 (a) (607)- - Lymphocytes 31.2 % 20.5 - 51.1 Monocytes 7.0 % 1.7 - 9.3 Granulocytes 61.8 % 42.2 - 75.2 Lymphocytes 1.9 10^3/uL 0.7 - 4.9 Monocytes 0.4 10^3/uL 0.1 - 0.9 Granulocytes 3.8 10^3/uL 1.5 - 7.2 RBC 4.03 /Hpf 3.90 - 5.70 Hemoglobin 13.0 g/dL 12.1 - 17.2 Hematocrit 38.3 % 36.1 - 50.3 Mean Corpuscular Vol 95.1 fl 82.2 - 97.4 Mean Corpuscular Hemaglobin 32.3 pg 27.6 - 33.3 Mean Corpuscular Hemo Concen 33.9 g/dL 33.0 - 34.8 RDW 11.9 % 11.6 - 13.7 Platelets 211 10^3/ul 202 - 386 Mean Platelet Volume 7.3 fl Low 7.4 - 10.4 Ua - Micro (a Old) 10/09/1997 [facility] Appearance YEL CLEAR (607)- - SP Grav 1.015 Esterase - Nitrite NEG pH 7.0 Protein NEG Glucose NEG mg/dL 70 - 110 Ketones NEG Urobil NEG Bilirubin, Micro NEG Blood POS Hyaline - /Lpf Granular - /Lpf WBC 5-7 /Hpf RBC 2-3 /Hpf Mucus - /Lpf Epith FILLED /Lpf Bacteria MOD /Hpf Amorphous - /Lpf Crystals - /Lpf CBC With Diff ([facility]) 10/09/1997 [facility] WBC 8.6 /Hpf 3.6 - 9.6 (607)- - Lymphocytes 25.2 % 20.5 - 51.1 Monocytes 4.6 % 1.7 - 9.3 Granulocytes 70.2 % 42.2 - 75.2 Lymphocytes 2.2 10^3/uL 0.7 - 4.9 Monocytes 0.4 10^3/uL 0.1 - 0.9 Granulocytes 6.0 10^3/uL 1.5 - 7.2 RBC 4.05 /Hpf 3.90 - 5.70 Hemoglobin 13.0 g/dL 12.1 - 17.2 Hematocrit 39.3 % 36.1 - 50.3 Mean Corpuscular Vol 97.0 fl 82.2 - 97.4 Mean Corpuscular Hemaglobin 32.0 pg 27.6 - 33.3 Mean Corpuscular Hemo Concen 33.0 g/dL 33.0 - 34.8 RDW 11.9 % 11.6 - 13.7 Platelets 210 10^3/ul 202 - 386 Mean Platelet Volume 8.3 fl 7.4 - 10.4 Chol,Tri,HDL,VLDL,Chol//HDL 10/09/1997 [facility] HDL-Chol 89.4 mg/dL > 35 (607)- - Cholesterol 220 mg/dL High < 200 Triglyceride 77 mg/dL 35 - 160 LDL-Calculated 115 mg/dL <130 VLDL 15 mg/dL 6 - 40 Cholesterol / HDL Ratio 2.5 14 Element 10/09/1997 [facility] Alkaline Phosphatase 90 U/L 48 - 168 Profile (607)- - GGT 11 U/L 5 - 85 Ast Sgot 23 U/L 5 - 40 Alt SGPT 19 U/L 5 - 36 BUN 10.0 mg/dL 7.0 - 22.0 Glucose 90 mg/dL 70 - 110 Calcium 9.1 mg/dL 8.4 - 10.5 Cholesterol 220 mg/dL High < 200 Triglyceride 77 mg/dL 35 - 160 Amylase 54 U/L 25 - 115 Uric Acid 3.5 mg/dL 2.6 - 7.2 Creatinine 0.5 mg/dL Low 0.6 - 1.3 Bilirubin, Direct 0.5 mg/dL 0.1 - 1.5 Total Protein 7.1 g/dL 6.4 - 8.2 BUN/Creatinin Ratio 20.0 12.0 - 20.0 1 Dates / Results....2013 Other..............Post Menopausal No. of containers..01 CYTYC Thin Prep Vial [id number] 2 NEGATIVE FOR INTRAEPITHELIAL LESION AND MALIGNANCY. 3 Satisfactory for evaluation. Endocervical and/or squamous metaplastic cells (endocervical component) are present. 4 Z01.419 5 Barney Early, Machine Attendant ([facility]) 6 The Pap smear is a screening test designed to aid in the detection of premalignant and malignant conditions of the uterine cervix. It is not a diagnostic procedure and should not be used as the sole means of detecting cervical cancer. Both false-positive and false-negative reports do occur. 7 This liquid based ThinPrep(R) pap test was screened with the use of an image guided system. 8 This test detects fourteen high-risk HPV types (16/18/31/33/35/39/45/ 51/52/56/58/59/66/68) without differentiation. 9 REFERENCE VALUE <=1.0 (Negative) 10 REFERENCE VALUE <20.0 (Negative) 11 Tests for antibodies to dsDNA and JAY antigens are not performed automatically unless the MARY result is > or= 3.0 U. Studies performed at [facility] indicate that positive MARY results <3.0 U are rarely accompanied by positive second order tests. Test Performed by: [facility] [address] [place] [address] Assembly Riveter: Arturo Eduardo II, M.D., Ph.D. 12 Acute inflammation: >10.00 13 Serologic response to B. burgdorferi infection is not detected, but cannot rule out early infection during which low or undetectable antibody levels to B. burgdorferi may be present. If clinically indicated, a new serum specimen should be submitted in 7-14 days. Test Performed by: [facility] [address] [place] [address] Assembly Riveter: Arturo Eduardo II, M.D., Ph.D. 14 PATIENT HAS HISTORY OF BLOOD. PATIENT GOES TO UROLOGIST 15 Because ethnic data is not always readily available, this report includes an eGFR for both -Americans and non- Americans. The National Kidney Disease Education Program (NKDEP) does not endorse the use of the MDRD equation for patients that are not between the ages of 18 and 70, are , have extremes of body size, muscle mass, or nutritional status, or are non- or non-. According to the National Kidney Foundation, irrespective of diagnosis, the stage of the disease is based on the level of kidney function: Stage Description GFR(mL/min/1.73 m(2)) 1 Kidney damage with normal or decreased GFR 90 2 Kidney damage with mild decrease in GFR 60-89 3 Moderate decrease in GFR 30-59 4 Severe decrease in GFR 15-29 5 Kidney failure <15 (or dialysis) 16 [facility], [facility]. DEPARTMENT OF PATHOLOGY or Extension 8244 AGGREGATE CONVEYOR OPERATOR CYTOLOGY REPORT PATIENT: STARLA VARELA : 1950 AGE: 61 Y SEX: F ACCT: [id number] PROCEDURE DATE: 07/19/2012 DATE RECEIVED: 07/20/2012 REQUESTING PHYSICIAN: TRISHA MCKNIGHT NP LOCATION: [facility] Case No. 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 ADDITIONAL COPIES SENT TO: Screened/Rescreened Electronically Signed Sign Out Date/Time: by: by: [place] [id number] HALEY BRISENO, 07/20/2012 16:36 CT(ASCP) Note: The Pap smear is a screening test designed to aid in the detection of premalignant and malignant conditions of the uterine cervix. It is not a diagnostic procedure and should not be used as the sole means of detecting cervical cancer. Both false-positive and false-negative reports do occur. 00 UA Pap Smear performed at [facility] Dir: Fren Turcios MD, [address] [facility] [id number] 01 transportation department head [place] [place] Dir: Barney Dacosta MD, [address] [facility] [id number] Lab [facility] [place] Dir: Arturo Skinner MD, [address] [place] [id number] For inquiries regarding HPV test results, the physician may contact Lab Yi: [phone] "" 17 Vitamin D deficiency has been defined by the [place] of [employer] and an Endocrine Society practice guideline as a level of serum 25-OH vitamin D less than 20 ng/mL (1,2). The Endocrine Society went on to further define vitamin D insufficiency as a level between 21 and 29 ng/mL (2). 1. IOM ([place] of [employer]). 2010. Dietary reference intakes for calcium and D. [place]: The National Academies Press. 2. Kang MF, Juan R AMADOR, Juan C STEVENSON, et al. Evaluation, treatment, and prevention of vitamin D deficiency: an Endocrine Society clinical practice guideline. JCEM. 2010; 96(7):7921-30. 18 COLLECTED FROM 10/23/08929 THROUGH 10/24/08929. 19 Please note change in reference range effective 08 . 20 REFERENCE RANGE: AM 8.7-22.4 PM LESS THAN 10 . 21 -- REFERENCE VALUE -- 25-HYDROXY D TOTAL (D2+D3) Optimum levels in the normal population are 25-80 Test Performed by: [facility] Dpt of Lab Med and Pathology [address] [place] [address] Assembly Riveter: Hayden Bojorquez III, M.D. 22 FASTING; 1 SST TUBE 23 NON-FASTING 24 Follicular Phase: 4.0-13.0 mIU/mL Ovulatory Peak: 5.0-22.0 mIU/mL Luteal Phase: 2.0-13.0 mIU/mL Post-Menopausal: 20.0-138.0mIU/mL MALE: 1.0-8.0 mIU/mL . 25 Follicular Phase: 1.0-18.0 mIU/ml Ovulatory Peak: 24.0-105.0mIU/ml Luteal Phase: 0.4-20.0 mIU/ml Post-Menopausal: 15.0-62.0 mIU/ml MALES: 2.0-12.0 mIU/ml . 26 NORMAL ELECTROPHORECTIC PATTERN. 27 NORMAL SERUM IMMUNOFIXATION ELECTROPHORECTIC PATTERN. Procedures Date Code Description Status 01/08/2017 18128 Electrocardiogram Complete Completed 09/18/2016 [id number] Mammogram Completed 05/15/2015 [id number] Mammogram Completed 12/06/2014 63782 Pulse Oximetry Completed 11/05/2014 30355 Pulse Oximetry Completed 11/05/2014 32310 Electrocardiogram Complete Completed 06/27/2013 32936 Pulse Oximetry Completed 04/07/2013 97160 Dxa Bone Density Vertebarl FX Assessment Completed 04/07/2013 35233 Dxa Bone Density Study One Or More Sites Axial Completed Skeleton 03/31/2013 [id number] Mammogram Completed 03/13/2013 [id number] Bone Mineral Density Test Completed 08/23/2010 24621 Pulse Oximetry Completed 05/14/2009 [id number] Colonoscopy Completed 06/15/2007 [id number] Mammogram Completed 12/06/2006 [id number] Mammogram Completed 05/07/2006 [id number] Mammogram Completed 10/09/1997 42020 Electrocardiogram Complete Completed Encounters Type Date Location Provider Dx Diagnosis Office Visit 01/27/2018 [facility] Office Crystalpaola Crocker, S30.0xxA Contusion of 2:15p EXECUTIVE ASSISTANT lower back and pelvis, initial encounter W01.198A Fall same lev from slip/trip w strike agnst oth object, init Office Visit 11/26/2017 1:00p [facility] Office Valerie Evans, EXECUTIVE ASSISTANT R05 Cough J06.9 Acute upper respiratory infection, unspecified J45.998 Other asthma Office Visit 04/26/2017 9:00a [facility] Office Trisha Z01.419 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 right hip R05 Cough Office Visit 11/22/2015 10:20a [facility] Office Ramakrishna Adames R21 Rash and other Monica Lundberg nonspecific skin eruption M81.0 Age-related osteoporosis w/o current pathological fracture Z80.0 Family history of malignant neoplasm of digestive organs F32.8 Other depressive episodes Office Visit 05/08/2015 9:15a [facility] Trisha 311 Depressive [place], Afnp-C Disorder Not Elsewhere Spec V76.19 Screening Breast Exam Malignant Neoplasms Other V76.10 Screening For Malignant Neoplasm Breast 924.3 Contusion Toe Office Visit 12/06/2014 1:00p Main Office Ramakrishna Adames 466.0 Bronchitis Acute Monica Lundberg Office Visit 11/05/2014 3:50p [facility] Ramakrishna Adames 466.0 Bronchitis Acute Monica Lundberg 733.00 Osteoporosis Unspec 786.59 Pain Chest Other Office Visit 05/09/2014 4:30p Main Office Trisha Hilche[place]horf, V72.31 Routine Pbx Mechanic Afnp-C Examination 311 Depressive Disorder Not Elsewhere Spec 733.00 Osteoporosis Unspec Office Visit 02/14/2014 9:15a [facility] Teresa Melgar, 466.0 Bronchitis Acute DIRECTOR OF EVENT MANAGEMENT 372.00 Conjunctivitis Acute Unspec Office Visit 10/06/2013 1:40p [facility] Ramakrishna Adames 733.00 Osteoporosis Office Monica Lundberg Unspec 311 Depressive Disorder Not Elsewhere Spec v04.81 Need For Prophylactic Vaccination & Inoculation/Influenza Office Visit 06/27/2013 1:00p [facility] Trisha 461.0 Sinusitis Acute [place], Afnp-C Maxillary Office Visit 03/24/2013 3:00p [facility] Ramakrishna Adames 311 Depressive Monica Lundberg Disorder Not Elsewhere Spec 733.00 Osteoporosis Unspec 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 599.70 Hematuria, Unspecified V76.41 Screening Malignant Neoplasm Rectum 782.9 Skin & Integumentary Tissue Other Symptoms Office Visit 07/19/2012 10:00a [facility] Trisha V76.19 Screening Breast [place], Afnp-C Exam Malignant Neoplasms Other V76.2 Screening Malignant Neoplasm Cervix V72.31 Routine Pbx Mechanic Examination 733.00 Osteoporosis Unspec V76.41 Screening Malignant Neoplasm Rectum V70.0 Examination General Medical Routine AT Health Care Facility Office Visit 05/13/2012 1:40p [facility] Ramakrishna Adames 782.9 Skin & Office Monica Lundberg Integumentary Tissue Other Symptoms 733.00 Osteoporosis Unspec 311 Depressive Disorder Not Elsewhere Spec V76.41 Screening Malignant Neoplasm Rectum v04.81 Need For Prophylactic Vaccination & Inoculation/Influenza Office Visit 12/09/2010 8:20p Main Office Ramakrishna Lundberg, 786.2 Cough M.D. Office Visit 08/23/2010 11:00a Main Office Tray Murcia, 466.0 Bronchitis Acute M.DYash 465.9 URI Upper Respiratory Infections Acute Unspec Sites Office Visit 07/29/2010 10:50a Main Office Melba Cabrera 466.0 Bronchitis Acute Monica Montelongo Office Visit 07/15/2010 10:45a [facility] Trisha 465.9 URI Upper [place], Respiratory Afnp-C Infections Acute Unspec Sites Office Visit 07/12/2010 10:15a Main Office Trisha 465.9 URI Upper [place], Respiratory Afnp-C Infections Acute Unspec Sites Office Visit 04/16/2010 11:30a Main Office Myriam Silveira, E906.4 Bite Nonvenomous Afnp-C Arthropod 914.4 Injury Superficial Insect Bite Hand Exc Fing Nonve W/O Infec Office Visit 11/15/2009 9:40a [facility] Ramakrishna Adames 680.5 Carbuncle & Office Monica Lundberg Furuncle Buttock Office Visit 04/18/2009 10:40a Main Office Ramakrishna Adames 733.00 Osteoporosis Monica Lundberg Unspec 311 Depressive Disorder Not Elsewhere Spec Office Visit 12/17/2008 1:00p [facility] Ramakrishna Adames 780.79 Malaise And Monica Lundberg Fatigue Other 733.00 Osteoporosis Unspec 311 Depressive Disorder Not Elsewhere Spec V76.41 Screening Malignant Neoplasm Rectum 782.1 Rash & Other Nonspec Skin Eruption Office Visit 06/27/2008 7:15p Main Office Trisha 911.4 Injury Superficial [place], Insect Bite Trunk Afnp-C Nonvenomous W/O Infect Office Visit 06/18/2008 1:00p [facility] Ramakrishna Adames 733.00 Osteoporosis Office Monica Lundberg Unspec 272.4 Hyperlipidemia Other Unspec 311 Depressive Disorder Not Elsewhere Spec 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 V04.81 Need For Prophylactic Vaccination & Inoculation/Influenza Office Visit 01/14/2008 9:45a Main Office Crystal Crocker, 782.1 Rash & Other EXECUTIVE ASSISTANT Nonspec Skin Eruption Office Visit 12/12/2007 9:00a [facility] Ramakrishna FYash 733.90 Bone & Cartilage Monica Lundberg Disorder Unspec 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 311 Depressive Disorder Not Elsewhere Spec 272.4 Hyperlipidemia Other Unspec V76.41 Screening Malignant Neoplasm Rectum V06.5 Tetanus Diphtheria (DT) v06.5 Tetanus Diphtheria (DT) Office Visit 05/11/2007 3:10p Main Office Maverick Quinn 784.0 Headache Monica Polk Office Visit 08/16/2006 10:30a Main Office Trisha 599.0 UTI Urinary [place], Afnp-C Tract Infection Site Not Spec Office Visit 08/13/2006 1:00p [facility] Valerie doherty 807.02 FX Ribs Closed Monica Suresh Two 692.89 Dermatitis Due To Spec Agents Other Office Visit 06/03/2006 10:20a Main Office Gear Blackman, V70.0 Examination General M.D. 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 Not Elsewhere Spec Office Visit 11/30/2005 2:10p Main Office Gera Blackman, 311 Depressive Disorder M.D. Not Elsewhere Spec Office Visit 04/06/2005 8:15p Main Office Crystal Crocker, 719.46 Pain Joint Lower EXECUTIVE ASSISTANT Leg Office Visit 01/09/2005 10:45a Main Office Crystal Crocker, 599.0 UTI Urinary Tract EXECUTIVE ASSISTANT Infection Site Not Spec Office Visit 09/02/2004 8:15p Main Office Chayo Cormier, 599.0 UTI Urinary Tract EXECUTIVE ASSISTANT-C Infection Site Not Spec Office Visit 04/25/2004 3:20p Main Office Gera Blackman, V70.0 Examination General M.D. Medical Routine AT Health Care Facility 311 Depressive Disorder Not Elsewhere Spec 309.81 Posttraumatic Stress Disorder V06.5 Tetanus Diphtheria (DT) Office Visit 01/23/2004 9:20a Main Office Gera Blackman, 311 Depressive Disorder M.D. Not Elsewhere Spec 692.9 Eczema NOS, Contact Dermatitis NOS 786.2 Cough Office Visit 10/03/2003 7:45p Main Office Trisha Mcknight, 465.9 URI Upper Afnp-C Respiratory Infections Acute Unspec Sites Office Visit 07/31/2003 1:20p Main Office Gera Blackman, 300.00 Anxiety State M.D. Unspec 311 Depressive Disorder Not Elsewhere Spec V04.8 Need For Vaccination & Inoculation Other Viral Diseases Office Visit 05/02/2003 7:10p Main Office Gera Gooden 309.81 Posttraumatic Stress Monica Blackman Disorder 311 Depressive Disorder Not Elsewhere Spec Office Visit 03/08/2003 11:10a Main Office Gera Blackman, 783.21 Loss Of Weight M.D. 311 Depressive Disorder Not Elsewhere Spec 300.00 Anxiety State Unspec Office Visit 01/10/2003 6:20p Main Office Gera Gooden 309.81 Posttraumatic Stress Monica Blackman Disorder 311 Depressive Disorder Not Elsewhere Spec Office Visit 12/13/2002 6:20p Main Office Gera Gooden 309.81 Posttraumatic Stress Monica Blackman Disorder 311 Depressive Disorder Not Elsewhere Spec 300.02 Anxiety Disorder Generalized Office Visit 11/16/2002 4:20p Main Office Gera Gooden 309.81 Posttraumatic Stress Monica Blackman Disorder 780.79 Malaise And Fatigue Other 300.00 Anxiety State Unspec 311 Depressive Disorder Not Elsewhere Spec Office Visit 10/24/2002 11:00a Main Office Gera Blackman, 300.4 Dysthymic Disorder M.DYash 309.81 Posttraumatic Stress Disorder Office Visit 06/12/2002 7:20p Main Office Marcellus Moy M.D. Office Visit 04/25/2002 1:00p Main Office Gera Blackman M.D. Office Visit 09/15/2001 3:00p Main Office Qing [place] Office Visit 07/13/2000 6:15p Main Office Qing [place] Plan of Treatment 11/17/2018 - Zuleyka Hung, NPJ15.9 Unspecified bacterial pneumoniaNew Medication:Amoxicillin/Clavulanate Potassium 875-125 mg - take one by mouth twice daily until goneOndansetron HCL 4 mg - take one by mouth every 6 hours as needed for vomitingVentolin HFA 108(90 Base) mcg/Act - take 1-2 puffs inhaled every 4 hours as needed for wheezing or tightness in the chestComments:Please come back on Wednesday for a recheck. If you are worsening over the weekend please go to the emergency department. If you cannot keep the antibiotics down please call me tomorrow and I can send in an alternate prescription.AllComments:1. Patient has been queried about patient's goals/preferences and functional/ lifestyle goals at relevant visits. If relevant, describe: Has been discussed, noted above2. Treatment goals as explainedto the patient: see above3. Are there barriers to meeting treatment goals? Yes If Yes, please describe: Barriers include possible insurance limits, disease process, and difficulty with lifestyle changes4. Self-Management goals as described to the patient: Yes , see above As always, we strongly encourage a healthy diet and making physical activity a part of your every day life. If you have questions about how or where to start, please contact the office.
[2018-11-17 19:26] LABS: Influenza A Molecular NEGATIVE (Negative); Influenza B Molecular NEGATIVE (Negative)
[2018-11-17] MEDS ORDERED: NS 0.9% 1000 ML** 1,000 ML IV.FLUID IV ONE (20:31)
[2018-11-17] MEDS ORDERED: Acetaminophen SUPP* 325 MG SUPP PR ONE (20:32)
[2018-11-17] MEDS ORDERED: Albuterol/Ipratropium NEB.SOL* Albuterol 2.5 MG/Ipratropium 0.5 MG 3 ML INH ONE (20:33)
[2018-11-17] MEDS ORDERED: Ondansetron INJ* 2 MG/ML VIAL IV ONE (20:33)
[2018-11-17] MEDS ORDERED: Albuterol 2.5 MG/3 ML NEB.SOL* (0.083%) INH ONE (20:34)
--- NOTE | 2018-11-17 20:36 | ED ---
Complex/Multi-Sys Presentation - HPI Summary HPI Summary: This pt is a 68 y/o female [facility] c/o nausea, vomiting, congestion , and fever. Pt reports she has had a cold with congestion for the past 3-4 days. She states she has increased SOB and has a chronic cough (from exposure to parents who were heavy smokers). Pt reports nausea and vomiting began today. Denies diarrhea, body aches. Pt went to see her PCP today where she had a max temperature of 103F at around 13:30. Pt had negative flu test. She was given antibiotics and zofran PO by her PCP, which she has been unable to take due to vomiting. Currently in the ED pt has a temp of 103 F temporal. PMHx includes pneumonia, chronic cough. - History Of Current Complaint Chief Complaint: EDFluSymptoms Time Seen by Provider: 11/17/18 20:22 Hx Obtained From: Patient Onset/Duration: Lasting Days - 3-4, Still Present Timing: Days Severity Currently: Moderate Aggravating Factor(s): nothing Alleviating Factor(s): nothing Associated Signs And Symptoms: Positive: SOB, Cough, Nausea, Vomiting, Fever, Other - POS: congestion. NEG: myalgia. Negative: Diarrhea - Allergies/Home Medications Allergies/Adverse Reactions: Allergies Allergy/AdvReac Type Severity Reaction Status Date / Time No Known Allergies Allergy Verified 11/17/18 18:59 PMH/Surg Hx/FS Hx/Imm Hx Respiratory History: Reports: Hx Chronic Obstructive Pulmonary Disease (COPD) - States parents were heavy smokers, Other Respiratory Problems/Disorders - HX of pneumonia 1994 / CHRONIC NON PRODUCTIVE COUGH MANY YEARS Musculoskeletal History: Reports: Hx Osteoporosis Sensory History: Reports: Hx Contacts or Glasses - glasses Denies: Hx Cataracts, Hx Hearing Aid Opthamlomology History: Reports: Hx Contacts or Glasses - glasses Denies: Hx Cataracts Neurological History: Reports: Hx Nerve Disease - neuropathy in legs Psychiatric History: Reports: Hx Anxiety, Hx Depression - Cancer History Hx Chemotherapy: No Hx Radiation Therapy: No - Surgical History Surgery Procedure, Year, and Place: appendectomy, left breast bx with clip Hx Anesthesia Reactions: No Infectious Disease History: No Infectious Disease History: Denies: Traveled Outside the [place] in Last 30 Days - Family History Family History: Parents who were heavy smokers. - Social History Alcohol Use: Weekly Substance Use Type: Reports: None Smoking Status (MU): Never Smoked Tobacco Review of Systems Positive: Fever ENT: Other - POS: congestion Positive: Shortness Of Breath, Cough Positive: Vomiting, Nausea. Negative: Diarrhea Negative: Myalgia All Other Systems Reviewed And Are Negative: Yes Physical Exam - Summary Physical Exam Summary: VITAL SIGNS: Reviewed. GENERAL: Patient is a well-developed and nourished female who is lying comfortable in the stretcher. Patient is not in any acute respiratory distress. HEAD AND FACE: No signs of trauma. No ecchymosis, hematomas or skull depressions. Pt with congestion. EYES: PERRLA, EOMI x 2, No injected conjunctiva, no nystagmus. EARS: Hearing grossly intact. Ear canals and tympanic membranes are within normal limits. MOUTH: Oropharynx within normal limits. NECK: Supple, trachea is midline, no adenopathy, no JVD, no carotid bruit, no c- spine tenderness, neck with full ROM. CHEST: Symmetric, no tenderness at palpation LUNGS: Mild decrease breath sounds bilaterally. CVS: Tachycardic rate and regular rhythm, S1 and S2 present, no murmurs or gallops appreciated. ABDOMEN: Soft, non-tender. No signs of distention. No rebound no guarding, and no masses palpated. Bowel sounds are normal. EXTREMITIES: FROM in all major joints, no edema, no cyanosis or clubbing. NEURO: Alert and oriented x 3. No acute neurological deficits. Speech is normal and follows commands. SKIN: Dry and warm Triage Information Reviewed: Yes Vital Signs On Initial Exam: Initial Vitals Temp Pulse Resp BP Pulse Ox 98.9 F 118 17 103/60 95 11/17/18 18:55 11/17/18 18:55 11/17/18 18:55 11/17/18 18:55 11/17/18 18:55 Vital Signs Reviewed: Yes Diagnostics - Vital Signs Vital Signs Temp Pulse Resp BP Pulse Ox 11/17/18 18:55 98.9 F 118 17 103/60 95 - Laboratory Lab Results: Lab Results 11/17/18 Range/Units 19:15 Influenza A (Rapid) Negative (Negative) Influenza B (Rapid) Negative (Negative) Result Diagrams: 11/17/18 20:53 11/17/18 20:53 Lab Statement: Any lab studies that have been ordered have been reviewed, and results considered in the medical decision making process. - Radiology Chest XR Radiology Interpretation Completed By: ED Physician Summary of Radiographic Findings: Negative chest XR. Pending official radiology report. - CT Chest CTA CT Interpretation Completed By: Radiologist Summary of CT Findings: IMPRESSION: 1. No pulmonary emboli. 2. Right lower lobe pneumonia. 3. Small hiatal hernia. Dr. Wagner has reviewed this report. Re-Evaluation - Re-Evaluation First Eval Re-Evaluation Time: 00:29 Comment: Blood pressure is 92/43. Will order bolus IV fluids. Plan for admission. Complex Multi-Symp Course/Dx Assessment/Plan: Pt is a 68 y/o female who presents with nausea, vomiting, congestion, and fever. Pt reports she has had a cold with congestion for the past 3-4 days. She states she has increased SOB and has a chronic cough (from exposure to parents who were heavy smokers). Pt reports nausea and vomiting began today. Labs show WBC of 12, glucose of 127, CRP of 140. Influenza A and B are both negative. Chest CTA shows 1. No pulmonary emboli. 2. Right lower lobe pneumonia. 3. Small hiatal hernia. In the ED course the pt was given IV fluids, Tylenol, duoneb, Zofran, Ventolin, Levaquin. Discussed the case with Dr. Figueredo, hospitalist, who accepted the pt for admission. - Diagnoses Provider Diagnoses: Pneumonia - Physician Notifications Discussed Care Of Patient With: Taylor Figueredo - hospitalist Time Discussed With Above Provider: 00:35 Instructed by Provider To: Admit As Inpatient Discharge - Sign-Out/Discharge Documenting (check all that apply): Patient Departure - Admit to [facility] Patient Received Moderate/Deep Sedation with Procedure: No - Discharge Plan Condition: Stable Disposition: ADMITTED TO [facility] Referrals: Ramakrishna Lundberg MD [Primary Care Provider] - - Attestation Statements Document Initiated by Scribe: Yes Documenting Scribe: Kavitha Silva Provider For Whom [place] is Documenting (Include Credential): Cortez Wagner MD Scribe Attestation: Kavitha Jimenez, scribed for Cortez Wagner MD on 11/18/18 at 0037. Status of Scribe Document: Ready
[2018-11-17] MEDS ORDERED: Acetaminophen SUPP* 650 MG SUPP ONE (20:45)
[2018-11-17 21:08] LABS: ABS Basophils 0.1 10^3/ul (0-0.2); ABS Eosinophils 0 10^3/ul (0-0.6); ABS Lymphocytes 0.4 10^3/ul (1.0-4.8); ABS Monocytes 0.7 10^3/ul (0-0.8); ABS Neutrophils 10.9 10^3/ul (1.5-7.7); ABS Nucleated RBC 0 10^3/ul; Eosinophil % 0 %; Hematocrit 37 % (35-47); Hemoglobin 12.5 g/dl (12.0-16.0); Lymphocyte % 3.1 %; Mean Corpuscular HGB Conc 33 g/dl (31-36); Mean Corpuscular Hemoglobin 31 pg (27-31); Mean Corpuscular Volume 93 fL (80-97); Mean Platelet Volume 7.6 fL (7.4-10.4); Nucleated Red Blood Cells % 0; Platelet Count 184 10^3/ul (150-450); Red Blood Count 4.03 10^6/ul (4.00-5.40); Red Cell Distribution Width 14 % (10.5-15)
[2018-11-17 21:20] LABS: Albumin/Globulin Ratio 1.6 (1-3); BUN/Creatinine Ratio 14.7 (8-20); C Reactive Protein 140.02 mg/L (<8.01); Calcium 8.7 mg/dL (8.6-10.3); EGFR African American 93.5 (>60); EGFR Non-African American 77.3 (>60); Globulin 2.5 g/dL (2-4); Potassium 3.6 mmol/L (3.5-5.0); Total Bilirubin 0.7 mg/dL (0.2-1.0); Total Protein 6.5 g/dL (6.4-8.9)
[2018-11-17] MEDS ORDERED: Iohexol 350* (CONTRAST) 500 ML MDV IV ONE (23:02)
[2018-11-18] MEDS ORDERED: Levofloxacin 750 MG IVPREMIX(* 750 MG/150 ML BAG IVPB ONE (00:31)
[2018-11-18] MEDS ORDERED: NS 0.9% 1000 ML** 1,000 ML IV ONE (00:31)
[2018-11-18] MEDS ORDERED: Ondansetron INJ* 2 MG/ML VIAL IV PRN (01:11)
[2018-11-18] MEDS ORDERED: Ibuprofen TAB* 400 MG PO PRN (01:13)
[2018-11-18] MEDS ORDERED: Codeine TAB* 30 MG PO ONE (02:18)
[2018-11-18] MEDS ORDERED: Benzonatate CAP* 100 MG PO PRN (02:29)
[2018-11-18] MEDS: NS 0.9% 1000 ML** 1,000 ML IV SCH ×3 (03:30→21:01)
--- NOTE | 2018-11-18 05:17 | HP ---
CC: Dr. Lundberg* HISTORY AND PHYSICAL: DATE OF ADMISSION: 11/18/18 TIME OF EVALUATION: 0100. PRIMARY CARE PHYSICIAN: Dr. Lundberg. CHIEF COMPLAINT: Cough and shortness of breath. HISTORY OF PRESENT ILLNESS: A 68-year-old female with unremarkable past medical history, presents to the emergency room with worsening cough and shortness of breath. The patient states about 2 weeks ago, her and her both came down with the flu. They both did get better, and then she states she began having fever on 10/17/18 and 10/18/18, she began coughing with chills, nausea, vomiting, has not been able to keep very much down at all. She went to go see her primary care physician yesterday. They told her to go to the emergency room if she was not feeling better. Her shortness of breath worsened, and so she came to the emergency room for further evaluation. She denies any chest pain. No abdominal pain, no diarrhea, no urinary symptoms. She had labs and imaging, found to have a pneumonia. She was give 2 L of fluid and remained hypotensive, systolics in the 80s, and the concern with her hypotension that she should be admitted for further evaluation. She was also given levofloxacin 750 mg with DuoNeb and referred to the hospitalist service for further evaluation. PAST MEDICAL HISTORY: 1. Depression. 2. The patient is followed by Dr. Gama for respiratory issues. She had a negative methacholine challenge test in the past. She did not have asthma, it is unclear what her diagnosis is, but she is on maintenance inhaler regimen. MEDICATIONS: 1. Ibuprofen 200 mg b.i.d. as needed. 2. Vitamin D 400 units daily. 3. Vitamin C 500 units daily. 4. Ellipta 62.5 mcg inhaled daily. 5. Breo Ellipta 100/25 inhaled daily. 6. Citalopram 40 mg daily. ALLERGIES: No known drug allergies. FAMILY HISTORY: Mother in her 70s from colon cancer. Father in his 60s related to complications from cardiac history. SOCIAL HISTORY: The patient lives in home with her who is her healthcare proxy. She is retired. No history of smoking. Just secondhand smoke exposure. Occasional alcohol use. Code status is full code. REVIEW OF SYSTEMS: A 14-point review of systems as mentioned in the HPI, otherwise negative. PHYSICAL EXAMINATION GENERAL: No acute distress, resting comfortably. VITAL SIGNS: T-max 102.9, pulse rate 96, respiratory rate 24, oxygen saturation is 93% on room air, blood pressure 91/50. HEENT: Head: Normocephalic. Pupils equal and reactive. Anicteric. Oropharynx: Mucous membranes moist. Positive posterior erythema. RESPIRATORY: Rhonchi in the right middle lobe, otherwise clear. No wheezing. No increased work of breathing. CARDIAC: Tachycardia. Soft systolic murmur heard throughout. ABDOMEN: Soft, nontender, nondistended. EXTREMITIES: No clubbing, cyanosis, or edema. +2 DPs. NEUROLOGIC: Alert and oriented x3. No gross focal neurologic deficits. DIAGNOSTIC STUDIES/LAB DATA: White count 12, hemoglobin 12.5, hematocrit 37, platelets 184. Sodium 134, potassium 3.6, chloride 101, bicarb 24, BUN 11, creatinine 0.75, glucose 124, lactic acid 2.4, CRP is 140. Repeat flu is negative. CTA of the chest: No pulmonary emboli, right lower lobe pneumonia. ASSESSMENT AND PLAN: This is a 68-year-old female who presented to the emergency room with worsening cough, shortness of breath, and fever, found to have pneumonia. 1. Right lower lobe pneumonia. The patient is started on Levaquin. The concern was her soft blood pressures despite getting 2 L of fluids. She is getting a third liter of fluid. We will admit her for observation. Continue IV fluids. Continue her on Levaquin. We will continue her inhaler regimen. She had a negative methacholine challenge test in the past. I do not think she would benefit from albuterol or steroids. She is not wheezing on exam. We will check a sputum culture, legionella, pneumococcal antigen and place her on cough suppressant as well. 2. Chronic medical problems. Continue her Breo Ellipta. 3. Depression. Continue her Celexa. 4. FEN: Continue regular diet. 5. DVT prophylaxis: The patient scores mild risk. We will place her on heparin subcu t.i.d. 6. Code status: Full code. PATIENT TIME: Greater then 30 minutes was spent doing the history and physical , more than half the time was spent in direct patient contact. [id number]/[facility] #: [id number] M[facility] IMOGEN[facility]ASSETT HOSPITALShana
[2018-11-18] MEDS: Heparin VIAL(*) 5000 UNITS/ML VIAL (FIVE THOUSAND) SUBCUT SCH ×3 (05:31→21:10)
[2018-11-18 05:41] LABS: Urine Appearance Clear; Urine Bacteria Absent (Absent); Urine Bilirubin Negative (Negative); Urine Blood 1+ (Negative); Urine Color Yellow; Urine Glucose Negative (Negative); Urine Ketones Trace (Negative); Urine Nitrite Negative (Negative); Urine Protein Negative (Negative); Urine Red Blood Cell Trace(0-2/hpf) (Absent); Urine Specific Gravity 1.024 (1.010-1.030); Urine Squamous Epithelial Cell Present (Absent); Urine Urobilinogen Negative (Negative); Urine White Blood Cell Trace(0-5/hpf) (Absent)
[2018-11-18] MEDS: PTO:Umeclidinium 62.5 MDI(NF) MDI INH SCH (07:07)
[2018-11-18] MEDS: cefTRIAXone(*) 1 GM in NS 0.9% 50 ML* 50 ML IVPB SCH (09:23)
[2018-11-18] MEDS: VILANTEROL MDI INH SCH (12:47)
[2018-11-18] MEDS: FLUTICASONE INH SCH (12:47)
[2018-11-18] MEDS: MDI INH SCH (12:47)
[2018-11-18] MEDS: Acetaminophen TAB* 325 MG PO PRN (12:51)
[2018-11-18] MEDS ORDERED: Ascorbic Acid TAB* 500 MG PO SCH (18:00)
[2018-11-18] MEDS ORDERED: Citalopram TAB* 40 MG PO SCH (18:00)
[2018-11-18] MEDS ORDERED: Cholecalciferol TAB* 400 UNIT PO SCH (18:00)
--- NOTE | 2018-11-18 19:44 | PN ---
Subjective Date of Service: 11/18/18 Interval History: c/o cough and fatigue. denies fever or chills overnight. denies chest pain or shortness of breath. denies abd pain n/v/d Family History: Unchanged from Admission Social History: Unchanged from Admission Past Medical History: Unchanged from Admission Objective Active Medications: Acetaminophen (Tylenol Tab*) 650 mg PO Q4H PRN PRN Reason: FEVER/PAIN Last Admin: 11/18/18 12:51 Dose: 650 mg Ascorbic Acid (Vitamin C Tab*) 500 mg PO QPM [facility] Last Admin: 11/18/18 17:58 Dose: 500 mg Benzonatate (Tessalon Cap*) 200 mg PO BID PRN PRN Reason: COUGH Cholecalciferol (Vitamin D Tab*) 400 unit PO QPM [facility] Last Admin: 11/18/18 17:57 Dose: 400 unit Citalopram Hydrobromide (Celexa Tab*) 40 mg PO QPM [facility] Last Admin: 11/18/18 17:58 Dose: 40 mg Fluticasone/Vilanterol (Breo Ellipta Mdi 100/25(Nf)) 1 puff INH DAILY [facility] Last Admin: 11/18/18 12:47 Dose: Not Given Heparin Sodium (Porcine) (Heparin Vial(*)) 5,000 units SUBCUT Q8HR [facility] Last Admin: 11/18/18 12:43 Dose: 5,000 units Sodium Chloride (Ns 0.9% 1000 Ml) 1,000 mls @ 125 mls/hr IV PER RATE [facility] Last Admin: 11/18/18 12:38 Dose: 125 mls/hr Ceftriaxone Sodium 1 gm/ (Sodium Chloride) 50 mls @ 200 mls/hr IVPB Q24H [facility] Last Admin: 11/18/18 09:23 Dose: 200 mls/hr Azithromycin 500 mg/ Sodium (Chloride) 250 mls @ 250 mls/hr IVPB Q24H [facility] Ibuprofen (Motrin Tab*) 400 mg PO Q6H PRN PRN Reason: PAIN Ondansetron HCl (Zofran Inj*) 4 mg IV Q4H PRN PRN Reason: NAUSEA/VOMITING Umeclidinium Maypearl (Incruse Ellipta Mdi (Nf)) 1 inh INH DAILY [facility] Last Admin: 11/18/18 07:07 Dose: Not Given Vital Signs - 8 hr 11/18/18 15:17 Temperature 99.4 F Pulse Rate 94 Respiratory 22 Rate Blood Pressure 87/48 (mmHg) O2 Sat by Pulse 93 Oximetry Oxygen Devices in Use Now: None Appearance: alert , resting in bed , no acute distress Eyes: No Scleral Icterus Ears/Nose/Mouth/Throat: Clear Oropharnyx, Mucous Membranes Moist Neck: NL Appearance and Movements; NL JVP Respiratory: Symmetrical Chest Expansion and Respiratory Effort, - - diminished in the bases with few scattered rhonchi in the right base Cardiovascular: NL Sounds; No Murmurs; No JVD, No Edema Abdominal: NL Sounds; No Tenderness; No Distention Extremities: No Edema, No Clubbing, Cyanosis Skin: No Rash or Ulcers Neurological: Alert and Oriented x 3 Nutrition: Taking PO's Result Diagrams: 11/17/18 20:53 11/17/18 20:53 Additional Lab and Data: Lab Results 11/17/18 Range/Units 19:15 Influenza A (Rapid) Negative (Negative) Influenza B (Rapid) Negative (Negative) Microbiology and Other Data: Microbiology 11/18/18 05:25 Legionella Urinary Antigen - Final Urine Negative Legionella Antigen Streptococcus pneumoniae Ag Screen - Final Negative S. pneumo Antigen 11/17/18 19:00 Influenza Types A,B Antigen - Final Nasal Specimen received for Influenza A/B Molecular testing Assess/Plan/Problems-Billing Assessment: ms. Storey is a 68 y.o female who presented to ER for evaluation of cough found to have pneumonia - Patient Problems (1) Pneumonia Current Visit: Yes Status: Acute Code(s): J18.9 - PNEUMONIA, UNSPECIFIED ORGANISM SNOMED Code(s): 653985687 Comment: will start azithromycin and ceftriaxone - nebs as needed for wheezing and shortness of breath - will repeat CBC and BMP in the AM - Will moniotr QTC with repeat ekg in the AM as patient is current taking celexa and the combination of celexa and azithromycin can prolong the QTC interval- QTC was 483 today (2) Depression Current Visit: Yes Status: Acute Code(s): F32.9 - MAJOR DEPRESSIVE DISORDER , SINGLE EPISODE, UNSPECIFIED SNOMED Code(s): 79277471 Comment: continue celexa (3) DVT prophylaxis Current Visit: Yes Status: Acute Code(s): SHZ5052 - SNOMED Code(s): 985189196 Comment: Heparin subQ (4) Full code status Current Visit: Yes Status: Acute Code(s): Z78.9 - OTHER SPECIFIED HEALTH STATUS SNOMED Code(s): 738548339 Status and Disposition: discharge home when medically stable
[2018-11-18] MEDS ORDERED: Azithromycin IV(*) 500 MG in NS 0.9% 250 ML* 250 ML IVPB SCH (22:00)
[2018-11-19] MEDS ORDERED: Levofloxacin 750 MG IVPREMIX(* 750 MG/150 ML BAG IVPB SCH (01:00)
[2018-11-19] MEDS ORDERED: Ondansetron INJ* 2 MG/ML VIAL IV PRN (03:01)
[2018-11-19] MEDS: Heparin VIAL(*) 5000 UNITS/ML VIAL (FIVE THOUSAND) SUBCUT SCH ×2 (05:37→12:00)
[2018-11-19] MEDS: NS 0.9% 1000 ML** 1,000 ML IV SCH (06:27)
[2018-11-19] MEDS: PTO:Umeclidinium 62.5 MDI(NF) MDI INH SCH (08:11)
[2018-11-19] MEDS: MDI INH SCH (09:30)
[2018-11-19] MEDS: FLUTICASONE INH SCH (09:30)
[2018-11-19] MEDS: VILANTEROL MDI INH SCH (09:30)
[2018-11-19] MEDS: cefTRIAXone(*) 1 GM in NS 0.9% 50 ML* 50 ML IVPB SCH (09:30)
[2018-11-19 10:46] LABS: ABS Basophils 0 10^3/ul (0-0.2); ABS Eosinophils 0 10^3/ul (0-0.6); ABS Lymphocytes 1.2 10^3/ul (1.0-4.8); ABS Monocytes 0.5 10^3/ul (0-0.8); ABS Neutrophils 3.4 10^3/ul (1.5-7.7); ABS Nucleated RBC 0 10^3/ul; Eosinophil % 0.3 %; Hematocrit 30 % (35-47); Hemoglobin 9.9 g/dl (12.0-16.0); Mean Corpuscular HGB Conc 33 g/dl (31-36); Mean Corpuscular Hemoglobin 31 pg (27-31); Mean Corpuscular Volume 93 fL (80-97); Mean Platelet Volume 8.2 fL (7.4-10.4); Nucleated Red Blood Cells % 0.1; Platelet Count 160 10^3/ul (150-450); Red Blood Count 3.19 10^6/ul (4.00-5.40); Red Cell Distribution Width 14 % (10.5-15); White Blood Count 5.2 10^3/ul (3.5-10.8)
[2018-11-19 10:57] LABS: BUN/Creatinine Ratio 8.6 (8-20); Calcium 7.7 mg/dL (8.6-10.3); EGFR African American 125.9 (>60); Potassium 3.2 mmol/L (3.5-5.0)
[2018-11-19] MEDS ORDERED: Potassium Chlor TAB* 20 MEQ TAB.ER PO ONE (11:05)
[2018-11-19 11:43] VITALS: BP 106/59
[2018-11-19] MEDS ORDERED: Cefpodoxime (NF) 200 MG TAB PO ONE (14:15)
[2018-11-19] MEDS: Acetaminophen TAB* 325 MG PO PRN (14:54)
[2018-11-19] MEDS ORDERED: Cefdinir cap* 300 MG CAP PO ONE (15:00)
[2018-11-19] MEDS ORDERED: PTO:Umeclidinium 62.5 MDI(NF) MDI INH SCH (21:00)
--- NOTE | 2018-11-20 04:42 | DS ---
CC: Dr. Ramakrishna Lundberg * DISCHARGE SUMMARY: DATE OF ADMISSION: 11/18/18 DATE OF DISCHARGE: 11/19/18 PROVIDER: Elo Kemp NP. ATTENDING PHYSICIAN: Dr. Miriam Gonzalez * (dictated by Elo Kemp NP). PRIMARY CARE PROVIDER: Dr. Ramakrishna Lundberg. PRIMARY DIAGNOSIS: Right lower lobe pneumonia. SECONDARY DIAGNOSIS: Depression. STUDIES COMPLETED WHILE IN THE HOSPITAL: She had a chest x-ray on 11/17/18, small right lower lobe infiltrate suggestive of pneumonia, findings consistent with COPD. She had a CTA of the chest on 11/17/18. Radiologist impression: No pulmonary emboli, right lower lobe pneumonia, small hiatal hernia. She had an electrocardiogram on 11/19/18, which showed sinus rhythm at rate of 91, QTc was 459. DISCHARGE MEDICATIONS: New home medications: 1. Tessalon Perles 100 mg p.o. b.i.d. as needed for cough. 2. Vantin 200 mg p.o. twice daily for 5 more days. 3. Doxycycline 100 mg p.o. daily for 7 days. Continued home medications: 1. Vitamin D 400 units p.o. q.p.m. 2. Vitamin C 500 mg p.o. q.p.m. 3. Incruse Ellipta 62.5 mcg inhaled daily. 4. Breo Ellipta 1 puff inhaled daily. 5. Celexa 40 mg p.o. daily. HISTORY OF PRESENT ILLNESS AND HOSPITAL COURSE: Ms. Storey is a 68-year-old female with unremarkable past medical history, who presented to the emergency room with complaints of worsening cough and shortness of breath. The patient reports she had a cough for approximately 2 weeks. Her came down with a flu. They both did get better, and she states that she began having fevers on 11/14/18, and on 11/15/18, she began coughing with chills, nausea, and vomiting, and was unable to keep very much down. She went to see her primary care doctor, who told her to go to the emergency room as she was not feeling better. Her shortness of breath became worse, so presented to the emergency room for further evaluation. While in the hospital, the patient had routine lab work drawn and a chest x-ray and a CT of the chest, which showed right lower lobe pneumonemia. She initially had 12,000 white count which improved. The patient does report that she is feeling better. She is able to tolerate her diet without any nausea or vomiting. The patient does continue to have a moist cough. Her urine culture was negative for any growth of bacteria. Urine for legionella and Strep pneumoniae were both negative. Blood cultures were negative x1 day. Sputum culture was negative x1 day. At this time, Ms. Storey is stable for discharge home. REVIEW OF SYSTEMS: She denies any fever or chills, denies any nausea or vomiting. She does report cough and coughing up sputum. She did report some mild nausea which has resolved. She denies any abdominal pain. Denies any chest pain or shortness of breath. PHYSICAL EXAMINATION: General: At this time, Ms. Storey is a 68-year-old female. She is resting in bed. She is in no acute distress. HEENT: Head is atraumatic, normocephalic. Eyes: EOMs are intact. Sclerae anicteric and not pale. Oral mucosa appeared to be moist. Neck is supple. Lungs are clear to auscultation bilaterally. No wheezes, rales, or rhonchi. Cardiac: S1, S2. Regular rate and rhythm. No murmurs, rubs, or gallops. Abdomen is soft and nontender. Bowel sounds are present x4. She is able to move all 4 extremities with 5/5 strength. Neurologic: She is awake, alert, oriented x3. Speech is clear. Thought process is intact. There are no gross focal deficits. Skin is intact. Vital Signs: Blood pressure 106/59, heart rate 84 , respirations are 20 , O2 saturation 95% on room air, temperature 97.4. DISCHARGE PLAN: Ms. Storey will be discharged back home. Activity as tolerated. She should continue on a regular diet. 1. Right lower lobe pneumonia. She should continue on Vantin 200 mg p.o. b.i.d. for 5 days and doxycycline 100 mg p.o. daily x7 days. She was changed from azithromycin to doxycycline due to the risk of QTc prolongation when taking azithromycin and Celexa together. She can have Tessalon Perles twice daily as needed for cough. She can have Tylenol 650 mg p.o. q.4 hours as needed for any aches or pains. The patient was encouraged p.o. fluid intake. She should follow up with her primary care provider in 4 to 7 days. 2. Depression. She should continue on her Celexa 40 mg p.o. daily. 3. Respiratory disease, unknown. She should continue her home inhalers as previously prescribed. Followup. She should follow up with her primary care provider in 4 to 7 days. She should return to the emergency room for any chest pain, shortness of breath , unable to tolerate a diet, or any other concerning symptoms. TIME SPENT: Time spent on this discharge was 60 minutes, greater than half that time was spent at the bedside discussing discharge plans and instructions. CONDITION ON DISCHARGE: Stable. DISPOSITION: On discharge is home. I have discussed with my attending Dr. Miriam Gonzalez, and she is in agreement with my plan. ELO KEMP, DEONDRE [id number]/[facility] #: [id number] [place]
== END 2018-11-19 15:05 | disposition home or self-care (01) ==
LOC: ED 18:54 → MED 11-18 01:11
PROVIDERS: ADMIT Pediatrics; ATTEND Internal Medicine
DX: J18.1 Lobar pneumonia, unspecified organism (principal); F32.9 Major depressive disorder, single episode, unspecified; R11.2 Nausea with vomiting, unspecified; R09.81 Nasal congestion; R06.02 Shortness of breath; J44.9 Chronic obstructive pulmonary disease, unspecified; K44.9 Diaphragmatic hernia without obstruction or gangrene
CPT/HCPCS: 36415; 71046; 71275; 80048; 80053; 81003; 81015; 82150; 83605; 83690; 85025; 86140; 87040; 87070; 87086; 87205; 87899; 93005; 94640; 96361; 96365; 96372; 96375; 96376; 99284; A9270-GY; G0378; J0456; J0696; J1644; J2405; Q9967

== ENCOUNTER 2018-11-29 20:33 | Emergency (ER) | payer MEDICARE ==
--- OUTSIDE RECORDS SUMMARY | 2018-11-29 20:54 | XMS REPORT | Continuity of Care Document ---
:1950 External Reference #:[id number] Author Name Ramakrishna Lundberg M.D. Address [address] [facility] [place] [address] Care Team Providers Name Role Phone Ramakrishna Lundberg MD Care Team Information Warehousing Technician Unavailable Ramakrishna Lundberg MD Primary Care Physician Unavailable Payers Date Identification Numbers Payment Provider Subscriber Effective: 2017 Policy Number: [id number] [employer] Starla Varela PayID: [id number] [address] [place] [address] Advance Directives Description No Information Available Problems [...] Observation Comments Onset: (age 57 Years) Father [place] smoker, Onset: (age 73 Years) Mother Colon Cancer First Sister Multiple Sclerosis (MS) First Sister Ankylosing Spondylitis Social History Type Date Description Comments Sex Unknown Marital Status Patient is Living Situation Lives with spouse 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 Every Day Breo Ellipta Active Aerosol 100-25mcg 1 puff Unknown /0000 /Inh once in the am Incruse Ellipta Active Aerosol 62.5mcg/I 1 puff Unknown /0000 nh daily Tessalon Perles Active Capsules 100mg take 2 Unknown /0000 tablets every 8 hours as needed for cough Cefpodoxime Active Tablets 200mg Q12 hrs Unknown Proxetil /0000 Doxycycline Active Tablets 100mg one tab by Unknown Hyclate /0000 mouth twice a day Amoxicillin/Clavu 11/17 Hx Tablets 875-125mg 14tab take one J15.9 Zuleyka C. 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 /2018 s by mouth Abhilash, - every 6 PEST MANAGEMENT SUPERVISOR 11/22 hours as needed for vomiting Ventolin HFA 11/17 Hx Aerosol 108(90Bas 18gm take 1-2 J15.9 Zuleyka C. e) puffs Abhilash, - mcg/Act inhaled PEST MANAGEMENT SUPERVISOR 11/22 every hours as needed for wheezing or tightness in the chest Medrol 11/26 Hx Tablets 4mg 1pack dose-pack as Nathan, - instructed ACCOUNTING MANAGER CPA 12/11 Farooq Pressley 11/26 Hx Capsules 100mg 30cap one to two s tabs by Nathan, - mouth ACCOUNTING MANAGER CPA 11/26 times a day as needed cough Cheratussin ac 11/26 Hx Syrup 100-10mg/ 118ml 5-10 mL by 5ML mouth [facility], - every ACCOUNTING MANAGER CPA 12/11 night at bedtime as needed cough Fluocinonide 01/08 Hx Cream 0.05% 60gm apply to Ramakrishna F. /2016 affected Toño, - area three M.D. 11/22 times a day Mometasone 11/21 Hx Cream 0.1% 45gm apply Ramakrishna F. Furoate three [facility], - times a M.D. 01/08 day needed Sulfamethoxazole/ 12/06 Hx Tablets 800-160mg 14tab take 1 Ramakrishna F. Trimethoprim s tablet by Toño, - mouth 2 M.D. 12/11 times day Methylprednisolon 12/06 Hx Tablets 4mg 1tabs [...] gtts in 372.00 Teresa os tid x DEONDRE Melgar - 7 days 05/09 Benzonatate 02/14 Hx Capsules 100mg 30cap 1 po tid 466.0 Teresa s prn for Brown, PEST MANAGEMENT SUPERVISOR - cough 02/24 Celexa 11/18 Hx Tablets 40mg 90tab Take 1 Ramakrishna F. s Tablet By Toño, - Mouth M.D. 10/12 Every Day Zostavax 10/06 Hx Solution [id number]/ 1dose inject Ramakrishna F. Rec 0.65ML Toño - M.D. 05/09 Doxycycline 06/27 Hx Capsules 100mg 20cap 1 po bid Trisha Hyclate s Juan Luis, - Afnp-C 07/07 Fluocinonide 03/24 Hx Cream 0.05% 30gm apply to Ramakrishna F. affected Toño, - area qd M.D. 06/27 prn /2012 Zostavax 03/24 Hx Solution [id number]/ 1dose inject Ramakrishna F. Rec 0.65ML Toño, - M.D. 06/27 Ergocalciferol 03/24 Hx Capsules [id number] 15cap 1 capsule Ramakrishna F. s po every Toño, - week for 4 M.D. 09/29 weeks, ,then 1 po qmonth Mometasone 05/13 Hx Cream 0.1% 45gm apply tid Ramakrishna F. Fur prn Toño - M.DYash 03/24 Septra DS 08/23 Hx Tablets 800-160mg 14tab 1 po bid Tray T. s Twin - M.D. 12/09 Zithromax 07/29 Hx Tablets [...] Hx Capsules 100mg 20cap 1 po bid s Juan Luis, - Afnp-C 07/25 Fluocinonide 12/17 Hx Cream 0.05% 30gm apply to Ramakrishna F. affected Tñoo, - area tihemanth Anderson 04/16 Doxycycline 06/27 Hx Capsules 100mg 2caps 2 p0 x 1 911.4 Trisha Hyclate Juan Luis, - Afnp-C 06/28 Zyrtec 01/13 Hx Tablets 10mg 30tab 1 po qd 782.1 Crystal /2007 s Obi, - ACCOUNTING MANAGER CPA 12/17 Boniva 12/11 Hx Tablets 150mg 6tabs 1 po Ramakrishna F. qmonth Phuong Lundberg M.D. 06/18 Fish Oil 05/11 Hx 1000mg 1 PO qd [facility] 05/09 [facility] Vitamin E 05/11 Hx Capsules 400Units 0caps 1 PO qd [facility] 09/29 [facility] Multivitamin With 05/11 Hx 100un 1 PO qd its [facility] 11/25 [place] Calcium+Vit.D 05/11 Hx 600mg 1 po qd [facility] 09/29 [facility] Vicodin 08/13 Hx Tablets 5mg;500 120ta 1 PO Q6H Valerie /2006 mg bs prn Phuong Mejia M.D. 05/11 Calcium Citrate 06/03 Hx Capsules 1,500mg Gera JYash With D And MG. /2005 Of Phuong Blackman Calc./D MTayla 05/11 [place] 06/03 Hx 1Gram 90uni 1 gram tid Gera JYash /2005 ts Phuong Blackman M.D. 05/11 dx depression Ciprofloxacin 04/24 Hx Tablets 250mg 10tab 1 po bid x Shaheed JYash /2005 s 5 days Phuong Pond M.D. 06/03 Fosamax 03/26 Hx Tablets 70mg Gera JYash /2005 Phuong Blackman M.D. 06/03 Actonel 11/30 Hx Tablets 35mg 0tabs 1 PO qweek [facility] 03/26 [facility] Fish Oil - [place] 03/20 Hx 1000mg A day Gera J. 3 Fa. Phuong Blackman M.D. 06/03 Celexa 01/20 Hx Tablets 40mg 90tab Take 1 Ramakrishna F. s Tablet By Toño, - Mouth M.Zackary 09/29 Every Day Bactrim DS 01/09 Hx 6unit 2 PO qd , s 1 PO bid X Juan Luis, - 2 More Afnp-C Levaquin 09/02 Hx 500mg 10uni 1 qd Chayo R chaka Cormier - ACCOUNTING MANAGER CPA-C 01/09 Pyridium 09/02 Hx 100mg 15uni 1 po tid Chayo ts prn Phuong Cormier ACCOUNTING MANAGER CPA-C 01/09 Calcium With Vit 04/25 Hx 600mg 1 bid Gera J. D Phuong Blackman M.D. 06/03 Trazodone 04/25 Hx 50mg 30uni 1 po qhs Gera JYash /2003 Phuong Palmer M.D. 01/09 Diprolene AF 01/22 Hx Cream 0.05% 15gm apply bid Gera J. /2003 to rash as Phuong Blackman dir Monica 01/09 Clarinex 01/22 Hx 5mg 30uni 1 qd Gera J. /2003 Phuong Palmer M.D. 01/09 Entex [place] 10/03 Hx 20uni 1/2-1 po Trisha /2003 ts bid [place], - prn/sinus Afnp-C 10/13 Lexapro 10/24 Hx 20mg 45uni 1 1/2 po Gera J. /2002 ts Phuong Garcia M.D. 01/20 Klonopin 10/24 Hx 0.5mg 60uni 1 PO bid Gera J. /2002 Phuong Palmer M.D. 03/08 Zoloft 06/12 Hx 25mg 1Star 1 PO qd, Marcellus Oswald. /2001 [employer] To 2 Farzaneh, - qd In 1 M.D. /2002 Work Excuse 10/10 Hx Unable To Tray Perales /2001 Work [employer], - 1/17/02-2/ M.D. 01/10 10/11. January Return To Work 11/11/01 Tylenol #3 09/29 Hx #3 30uni 1 Or 2 Q Tray T. /2001 ts 6H prn Midura, - M.D. 01/10 Naproxen 09/29 Hx 500mg 40uni 1 bid With Tray T. /2001 ts Food prn Midura, - Pain M.D. 01/10 Naproxen 07/13 Hx 375mg Tab 30uni 1 PO tid ts prn Raoul, - Afnp-C 07/23 Forteo Hx Solution 600mcg/2. 20 mcg qd Unknown /0000 4ML - 11/15 Strattera 00 Hx Capsules Unknown /0000 - 10/06 Lexapro Hx Tablets 40mg 1 po qd Unknown /0000 - 02/14 Spiriva Respimat Hx Aerosol 1.25mcg/A inhale 1 Unknown /0000 ct puff at hs - 11/22 Immunizations CPT Code Status Date Vaccine Lot # [id number] Given 07/07/2018 High-Dose, Influenza Virus Vacccine-fluzone 65 and older [id number] Given 06/15/2017 Influenza vac quadrivalent preservative free 3yrs and up 65184 Given 10/06/2013 Preservative free flu 3 yrs+ and older [id number] 67562 Given 05/13/2012 DO Not Use Split Influenza Virus Vaccine [id number] 69525 Given 06/30/2011 DO Not Use Split Influenza Virus Vaccine [id number] 01976 Given 06/21/2010 DO Not Use Split Influenza Virus Vaccine [id number] 03130 Given 10/01/2009 H1N1 Virus Vaccine [id number] 86847 Given 10/01/2009 H1N1 Immunization Intramuscular/Intranasal W Counseling 27375 Given 06/18/2008 DO Not Use Split Influenza Virus Vaccine [id number] 22452 Given 12/12/2007 Tdap Tetanus, W Pertussis [id number] 95215 Given 07/29/2006 DO Not Use Split Influenza Virus Vaccine [id number] 53141 Given 07/28/2005 DO Not Use Split Influenza Virus Vaccine 01907 Given 04/25/2004 Td Immunization, For Use In Individuals 7 Years Or Older 69243 Given 07/31/2003 DO Not Use Split Influenza Virus Vaccine 55019 Given 07/31/2003 DO Not Use Split Influenza Virus Vaccine 82894 Given 07/08/1999 DO Not Use Split Influenza Virus Vaccine 54754 Given 07/30/1998 Influenza Immunization 77477 Given 07/11/1997 Influenza Immunization Vital Signs Date Vital Result Comment 11/22/2018 2:10pm BP Systolic 118 mmHg BP Diastolic 72 mmHg Heart Rate 78 /min Body Temperature 98.2 F Respiratory Rate 20 /min O2 % BldC Oximetry 94 % Ra Weight 140.00 lb 11/17/2018 1:01pm BP Systolic 120 mmHg BP [...] Date Facility Test Result H/L Range Note Laboratory test 11/18/2018 [facility] Lactic Acid 2.4 mmol/L High 0.5-2.0 1 finding CBC Auto Diff 11/17/2018 [facility] White Blood 12.0 10^3/uL High 3.5-10.8 Count Red Blood Count 4.03 10^6/uL N 4.00-5.40 Hemoglobin 12.5 g/dL N 12.0-16.0 Hematocrit 37 % N 35-47 Mean Corpuscular Volume 93 fL N 80-97 Mean Corpuscular Hemoglobin 31 pg N 27-31 Mean Corpuscular HGB Conc 33 g/dL N 31-36 Red Cell Distribution Width 14 % N 10.5-15 Platelet Count 184 10^3/uL N 150-450 Mean Platelet Volume 7.6 fL N 7.4-10.4 Abs Neutrophils 10.9 10^3/uL High 1.5-7.7 Abs Lymphocytes 0.4 10^3/uL Low 1.0-4.8 Abs Monocytes 0.7 10^3/uL N 0-0.8 Abs Eosinophils 0 10^3/uL N 0-0.6 Abs Basophils 0.1 10^3/uL N 0-0.2 Abs Nucleated RBC 0 10^3/uL Granulocyte % 90.9 % Lymphocyte % 3.1 % Monocyte % 5.4 % Eosinophil % 0 % Basophil % 0.6 % Nucleated Red Blood Cells % 0 Comp Metabolic Panel 11/17/2018 [facility] Sodium 134 mmol/L Low 135-145 Potassium 3.6 mmol/L N 3.5-5.0 Chloride 101 mmol/L N 101-111 Co2 Carbon Dioxide 24 mmol/L N 22-32 Anion Gap 9 mmol/L N 2-11 Glucose 127 mg/dL High 70-100 Blood Urea Nitrogen 11 mg/dL N 6-24 Creatinine 0.75 mg/dL N 0.51-0.95 BUN/Creatinine Ratio 14.7 N 8-20 Calcium 8.7 mg/dL N 8.6-10.3 Total Protein 6.5 g/dL N 6.4-8.9 Albumin 4.0 g/dL N 3.2-5.2 Globulin 2.5 g/dL N 2-4 Albumin/Globulin Ratio 1.6 N 1-3 Total Bilirubin 0.70 mg/dL N 0.2-1.0 Alkaline Phosphatase 64 U/L N 34-104 Alt 10 U/L N 7-52 Ast 18 U/L N 13-39 Egfr Non- 77.3 >60 Egfr 93.5 >60 2 Laboratory test finding 11/17/2018 [facility] Amylase 30 U/L N 29-103 Lipase 31 U/L N 11.0-82.0 C Reactive Protein 140.02 mg/L High <8.01 Lactic Acid 0.7 mmol/L N 0.5-2.0 3 Blood Culture SEE RESULT BELOW 4 Urine Culture And Sensitivities 11/17/2018 [facility] Urine Culture SEE RESULT BELOW 5 Urinalysis Profile 11/17/2018 [facility] Urine Color Yellow Urine Appearance Clear Urine Specific [place] 1.024 N 1.010-1.030 Urine pH 6.0 N 5-9 Urine Urobilinogen Negative Negative Urine Ketones Trace Abnormal Negative Urine Protein Negative Negative Urine Leukocytes 1+ Abnormal Negative Urine Blood 1+ Abnormal Negative Urine Nitrite Negative Negative Urine Bilirubin Negative Negative Urine Glucose Negative Negative Urine White Blood Cell Trace(0-5/hpf) Absent Urine Red Blood Cell Trace(0-2/hpf) Absent Urine Bacteria Absent Absent Urine Squamous Epithelial Cell Present Abnormal Absent Rapid Influenza A & B 11/17/2018 [facility] Influenza A Molecular NEGATIVE Negative 6 Molecular Influenza B Molecular NEGATIVE Negative Laboratory test 11/17/2018 [facility] Rapid Influenza A SEE RESULT 7 finding & B Antigen BELOW Influenza A&B-fma 11/17/2018 [facility] Influenza A NEG (607)- - Influenza B NEG Draw Operator Pap Test Age-Based GL Cerv 04/26/2017 [facility] Age 30-65 8 CA & STDS [address] [place] [address] (607)- - Age 0804/26/2017 [facility] Age 30-65 [address] [place] [address] (607)- - Diagn See Comment: 9 Adeq See Comment: 10 [email or web address] See Comment: 11 Perfor See Comment: 12 Comm . Note See Comment: 13 Iglbp See Comment: 14 HPV Aptima Negative Negative 15 Laboratory test 04/26/2017 [facility] PDF [id number] SEE IMAGE finding [address] [place] [address] (607)- - Laboratory test 01/08/2017 Sweeney Leia (a) TSH 1.69 mIU/L 0.50- finding 6.00 Lipid Profile 01/08/2017 [facility] Leia (a) Cholesterol 299 mg/dL High 120-2 00 Triglycerides 98 mg/dL 30-200 HDL Cholesterol 94 mg/dL High 30-85 LDL (Calculated) 185 CALC High 0-129 VLDL Cholesterol 20 mg/dL 0-50 HDL Risk Factor 3.2 CALC 0.0-4.4 Comprehensive Metabolic 01/08/2017 Sweeney Leia (Fma) Sodium 139 mEq/L 134-149 Prof Potassium 4.1 [...] >60 ml/min/1.73m^ >=60 GFR >60 ml/min/1.73m^ >=60 Complete Blood Count 01/08/2017 Sweeney Leia ([facility]) WBC 6.9 x10^3/UL 3.6-9.6 RBC 4.36 x10^6/UL 3.90-5.70 HGB 13.7 g/dL 12.1-17.2 HCT 40 % 36-50 MCV 93.0 fL 82.2-97.4 MCH 31.5 pg 27.6-33.3 MCHC 34.1 g/dL 33.0-35.5 RDW 13.5 % 11.6-13.7 PLT 309 x10^3/UL 150-400 MPV 6.9 fL Low 7.4-10.4 Gran # 4.6 x10^3/UL 1.5-7.2 Lymph# 2.0 x10^3/UL 0.7-4.9 O'Brien# 0.3 x10^3/UL 0.1-0.9 Gran % 65.2 % 42.2-75.2 Lymph % 30.2 % 20.5-51.1 O'Brien% 4.6 % 1.7-9.3 Ua - Micro (a) 01/08/2017 [facility] Appearance slt cloudy (607)- [...] Amorphous - /Lpf Crystals, Fluid (Fma/CMC/CTX) - Connective Tissue Panel 04/06/2016 [facility] Anti-Nuclear Antibody 0.4 U N 16 Cyclic Citrullinated Peptide <15.6 U N 17 Interpretation See Comment N 18 Laboratory test finding 04/06/2016 [facility] C Reactive Protein < 1.00 mg/L N < 5.00 19 Lyme Disease Serology Negative N Negative 20 Complete Blood Count 11/05/2014 Patel Dupree ([facility]) WBC 7.6 x10^3/UL 3.6-9.6 RBC 4.11 x10^6/UL 3.90-5.70 HGB 13.0 g/dL 12.1-17.2 HCT 39 % 36-50 MCV 95.0 fL 82.2-97.4 MCH 31.7 pg 27.6-33.3 MCHC 33.4 g/dL 33.0-35.5 RDW 11.5 % Low 11.6-13.7 PLT 246 x10^3/UL 150-400 MPV 6.6 fL Low 7.4-10.4 Gran # 5.0 x10^3/UL 1.5-7.2 Lymph# 2.3 x10^3/UL 0.7-4.9 O'Brien# 0.3 x10^3/UL 0.1-0.9 Gran % 64.2 % 42.2-75.2 Lymph % 30.8 % 20.5-51.1 O'Brien% 5.0 % 1.7-9.3 Comprehensive Metabolic 11/05/2014 Patel Dupree ([facility]) Sodium 139 mEq/L 134-149 Prof Potassium 4.1 [...] 0.2-1.3 Laboratory test finding 11/05/2014 [facility] (a) TSH 1.76 mIU/L 0.50-6.00 Free T4 0.98 ng/dL 0.75-1.54 Ua - Non Micro (a) 05/09/2014 [facility] Appearance CLEAR (607)- - Color YELLOW Glucose NEG Bilirubin NEG Ketones 15MG/DL # SP Grav >=1.030 Blood MOD # See Comments 21 PH 5.5 Protein NEG Urobil 0.2 Nitrite NEG Leukocytes (Fma/[facility]) NEG Urinalysis W/Microscopic 11/03/2013 [facility] Urine Color Yellow Urine Appearance Clear Urine Specific [place] 1.014 1.010-1.030 Urine Esterase Trace Abnormal Negative [...] None Seen Laboratory test 10/06/2013 [facility] Leia (a) Vitamin D25 33.7 ng/mL 30.0-100.0 finding Free T4 0.86 ng/dL 0.75-1.54 Comprehensive Metabolic 10/06/2013 [facility] Leia (a) Albumin 5.3 g/dL 3.8-5.5 Prof Alk. Phos. [...] N-Telopeptide 24.2 High 6.2-19.0 test finding [address] Serum nmolBCE/[place] [address] [phone] CBC 10/06/2013 [facility] Medicine WBC 6.9 3.6-9.6 Electronic (607)- [...] Egfr Non- 102.0 >60 Egfr 131.1 >60 22 Ua - Micro (Fma) 04/07/2013 [facility] Medicine Appearance clear (607)- - Color [...] Laboratory test 07/19/2012 [facility] Thin Prep SEE [address] W/HPV(Lsil/ARLEEN/Asc) [place] [address] [phone] Comprehensive 07/19/2012 Sweeney Leia ([facility]ma) Albumin 5.0 3.8 Metabolic Prof g/dL -5. [...] Ratio 20.3 Calc 8.0-36.0 Lipid Profile 07/19/2012 Sweeney Leia ([facility]) Cholesterol 320 mg/dL High 120-200 HDL 74 mg/dL 30-85 Triglycerides 105 mg/dL 30-200 HDL Risk Factor 4.3 CALC 0.0-4.4 LDL (Calculated) 225 CALC High 0-129 VLDL (Calculated) 21 mg/dL 0-50 Laboratory test 07/19/2012 Sweeney Leia ([facility]) TSH 1.43 mIU/L 0.50- 6.00 finding Laboratory test 07/19/2012 [facility] Vitamin D, 25 21.4 ng/mL Low 30.0- 100.0 24 finding [address] [place] [id number] [phone] CBC Electronic 07/19/2012 [facility] WBC 5.6 3.6-9.6 ([facility]) (607)- - RBC 4.27 3.90-5.70 Hemoglobin (Fma/CMC/CTX) 13.4 g/dL 12.1 - 17.2 Hematocrit (Fma/CMC/CTX) 40.2 % 36.1 - 50.3 Platelets 276 10^3/ul 150-400 Lymph% 34.4 20.5-51.1 Mixed% 8.6 Neutrophils % 57.0 Mean Corpuscular Vol 94 82.2-97.4 Mean Corpuscular Hemoglobin 31.3 27.6-33.3 Mean Corpuscular Hemo Concen 33.3 32.0-36.0 RDW 13.8 High 11.6-13.7 Mean Platelet Volume 6.4 Low 6.5-11.0 Ua - Non Micro ([facility]) 07/19/2012 [facility] Appearance CLEAR (607)- - Color YELLOW Glucose, Urine (Fma/CMC/CTX) NEG Bilirubin NEG Ketones NEG SP Grav 1.020 Blood MODERATE # Done After Pap PH 7.0 Protein NEG Urobil 1.0 Nitrite NEG Leukocytes (a/CMC/[facility]) NEG Complete Blood Count 12/17/2008 Sweeney Leia ([facility]) WBC 7.1 x10^3/uL 3.6-9.6 Gran# 4.5 x10^3/uL [...] RDW 12.2 % 11.6-13.7 Comprehensive Metabolic 12/17/2008 Sweeney Leia ([facility]) Albumin 4.9 g/dL 3.8-5.5 Prof Alk. Phos. [...] Calc 8.0-36.0 Laboratory test 12/17/2008 Sween[facility] Leia ([facility]) Free T4 1.09 ng/dL 0.75- 1.54 finding TSH 1.20 mIU/L 0.50-6.00 Laboratory test 12/17/2008 [facility] Sed Rate 14mm finding (607)- - (Fma/CMC/[facility]) Calcium 24HR 10/24/2008 [facility] Calcium Random Urine 20.2 mg/dL 25 Urine Urine Calcium/24HR 363.6 MG/24HR 50-400 Hours Of Collection 24 HR 24- Urine Volume Measurement 1800 ML Laboratory test finding 10/22/2008 [facility] Calcium 9.1 mg/dL 8.1-9.9 26 Phosphorus 3.2 mg/dL 2.4-4.7 Magnesium 2.5 mg/dL 1.7-2.6 Alkaline Phosphatase 50 U/L 30-110 Vitamin B12 487 pg/mL 180-914 Cortisol 17.2 g/dL 27 Vitamin D, 25 Hydroxy 10/22/2008 [facility] 25-Hydroxy Vitamin D2 <4.0 ng/mL ( ) 25-Hydroxy Vitamin D3 42 ng/mL () 25-Hydroxy Vitamin D Total 42 ng/mL () 28 Laboratory test 06/25/2008 [facility] [place] SEE IMAGE [employer] REPORT Lipid Profile 12/12/2007 Sweeney Flora ([facility]) Cholesterol 281 mg/dL High 120-20 0 HDL 88 mg/dL High 30-85 Triglycerides 105 mg/dL 30-200 HDL Risk Factor 3.2 CALC Low 4.2-7.0 LDL (Calculated) 172 CALC High 0-129 VLDL (Calculated) 21 mg/dL 0-50 Comprehensive Metabolic 12/12/2007 Patel Dupree ([facility]) Albumin 4.3 g/dL 3.8-5.5 Prof Alk. Phos. [...] Calc 8.0-36.0 Laboratory test finding 12/12/2007 Patel Dupree ([facility]) TSH 1.72 mIU/L 0.50-6.00 Complete Blood Count 12/12/2007 Sweeney Flora ([facility]) WBC 7.7 x10^3/u 3.6 -9.6 Gran# 5.3 [...] RDW 12.4 % 11.6-13.7 Ua - Micro ([facility]) 08/16/2006 [facility] Appearance CLEAR (607)- - Color LIGHT YELLOW Glucose NEGATIVE Bilirubin NEGATIVE Ketones NEGATIVE SP Grav 1.010 Blood 2+ High P.M.P PH 8.0 Protein, Random Urine SSA NEGATIVE Urobil 0.2 Nitrite NEGATIVE Leukocytes (a/CMC/[facility]) 2+ Hyaline - /Lpf Granular - /Lpf WBC, Fluid >100 RBC, Fluid >100 Mucus - /Lpf Epith OCC /Lpf Bacteria TRACE /Hpf Amorphous - /Lpf Crystals, Urine (Fma/CMC/CTX) - /Lpf Misc - Laboratory test 06/03/2006 [facility] C-Reactive <0.1 mg/dL 0.0-0.5 29 finding 28 [facility] [place] [address] [phone] Comp Metabolic 06/03/2006 [facility] Glucose, Serum 89 mg/dL 70- 105 ([facility]) Female (607)- - (Fma/CMC/CTX) BUN (Fma/CMC/[facility]) 14 mg/dL 6-26 Creatinine, Serum 0.8 mg/dL 0.6-1.4 BUN/Creatinin Ratio 17.6 8.0-36 Sodium 143 134-149 Potassium 4.3 3.6-5.5 Chloride 100 mEq/L 94-112 Co2 29 21-32 Calcium (Fma/CMC/[facility]) 9.3 mg/dL 8.6-10.2 Total Protein 7.2 g/dL 6.3-8.1 Albumin (a/CMCC/[facility]) 4.4 3.8-5.5 Globulin 2.8 2.0-4.8 A/G Ratio (A/G Ratio) 1.5 0.6-2.2 Alkaline Phosphatase (F/C/CTX) 40 U/L 30-110 Alt (SGPT) Female (a) 10 7-35 Ast Sgot 16 U/L 5-34 Bilirubin, Total 0.4 mg/dL 0.2-1.3 Laboratory test 06/03/2006 [facility] TSH ([facility]) 0.73 uIU/ ml 0.5-6.0 finding (607)- - Free T4 (a/[facility]) 1.26 ng/dL 0.75-1.54 Free T3 ([facility],CX) 2.68 pg/mL 2.0-4.9 Sed Rate (a/CMC/[facility]) 7 MM CBC ([facility]) ([facility]) 06/03/2006 [facility] WBC 6.1 3.6-9.6 (607)- - Lymphocytes 26.4 [...] Platelet Volume 7.8 7.4-10.4 Ua - Micro ([facility]) 06/03/2006 [facility] Appearance CLEAR (607)- - Color LT YELLOW Glucose NEG Bilirubin NEG Ketones NEG SP Grav 1.020 Blood 2+ PH 6.0 Protein, Random Urine NEG Urobil 0.2 Nitrite NEG Leukocytes (a/CMC/[facility]) 2+ Hyaline - /Lpf Granular - /Lpf WBC, Fluid 15-20 RBC, Fluid 2-4 Mucus SM AMT /Lpf Epith FEW /Lpf Bacteria TRACE /Hpf Amorphous - /Lpf Crystals, Urine (Fma/CMC/CTX) - /Lpf Misc NOT A CLEAN CATCH Ua - Micro ([facility]) 04/24/2006 [facility] Appearance TURBID (607)- - Color LIGHT YELLOW Glucose NEGATIVE Bilirubin NEGATIVE Ketones TRACE # SP Grav 1.015 Blood 3+ High [place] PH 7.5 Protein, Random Urine NEGATIVE Urobil 0.2 Nitrite NEGATIVE Leukocytes (Fma/CMC/[facility]) 2+ # Hyaline - /Lpf Granular - /Lpf WBC, Fluid >75 SOME CLUMPED RBC, Fluid 25-30 Mucus - /Lpf Epith OCC /Lpf Bacteria TRACE /Hpf Amorphous - /Lpf Crystals, Urine (Fma/CMC/CTX) - /Lpf Misc - Ua - Micro ([facility]) 01/09/2005 [facility] Appearance CLOUDY (607)- - Color LT YELLOW Glucose NEG Bilirubin NEG Ketones NEG SP Grav 1.010 Blood NEG PH 8.0 Protein NEG Urobil 0.2 Nitrite NEG Leukocytes 2+ Hyaline - /Lpf Granular - /Lpf WBC'S TNTC RBC'S 1-3 Mucus - /Lpf Epith MANY Bacteria 3+ Amorphous - /Lpf Crystals - /Lpf Comments - Ua - Micro ([facility]) 09/02/2004 [facility] Appearance CLOUDY (607)- - Color ORANGE Glucose NEG Bilirubin NEG Ketones TRACE SP Grav >1.030 Blood 3+ PH 5.0 Protein SSA +2 Urobil 1.0 Nitrite NEG Leukocytes 1+ Hyaline - /Lpf Granular - /Lpf WBC'S 60-70 RBC'S 20-30 Mucus SM AMNT /Lpf Epith MOD Bacteria 1+ Amorphous - /Lpf Crystals - /Lpf Comments - Comp Metabolic 05/13/2004 [facility] Medicine Glucose, Serum 89 mg/dL 70- 118 ([facility]) Female (607)- - (Fma/CMC/CTX) BUN (Fma/CMC/Centrex) 18 mg/dL 6-26 Creatinine, Serum 0.8 mg/dL 0.6-1.4 BUN/Creatinin Ratio 22.2 8.0-36 Sodium 139 134-149 Potassium 4.0 3.6-5.5 Chloride 102 mEq/L 94-112 Co2 27 21-32 Calcium (Fma/CMC/Centrex) 9.4 mg/dL 8.6-10.2 Total Protein 6.8 g/dL 6.3-8.1 Albumin (a/CMCC/Centrex) 4.4 3.8-5.5 Globulin 2.5 2.0-4.8 A/G Ratio (A/G Ratio) 1.8 0.6-2.2 Alkaline Phosphatase (F/C/CTX) 67 U/L 30-110 Alt (SGPT) 14 10-40 Ast (Sgot) (a/CMC/Centrex) 20 U/mL 5-34 Bilirubin, Total 0.5 mg/dL 0.2-1.3 Lipid Profile ([facility]) 05/13/2004 [facility] Cholesterol 270 mg/dL High 120-200 Female (607)- - Triglyceride 71 mg/dL 30-200 HDL-Chol 113 mg/dL High 30-85 LDL, Calculated ([facility]) 143 CALC High 0-129 LDL, Direct - mg/dL 0-130 VLDL 14 0-50 HDL Risk Factor ([facility]) 2.4 CALC Low 4.2-7.0 Laboratory test 05/13/2004 [facility] TSH (a/CMC/Centrex) 2.64 uIU/ ml 0.5-6.0 finding (607)- - CBC Electronic 05/13/2004 [facility] WBC 5.7 3.6-9.6 ([facility]) (607)- - Lymphocytes 34.6 % 20.5 - 51.1 Monocytes 6.5 % 1.7-9.3 Granulocytes 58.9 % 42.2 - 75.2 Lymphocytes 2.0 10^3/uL 0.7 - 4.9 Monocytes 0.4 10^3/uL 0.1 - 0.9 Granulocytes 3.4 10^3/uL 1.5 - 7.2 RBC 3.86 Low 3.90-5.70 Hemoglobin (a/CMC/CTX) 12.9 g/dL 12.1 - 17.2 Hematocrit (a/CMC/CTX) 37.9 % 36.1 - 50.3 Mean Corpuscular Vol 98.2 High 82.2-97.4 Mean Corpuscular Hemaglobin 33.3 27.6-33.3 Mean Corpuscular Hemo Concen 33.9 33.0-35.5 RDW 12.6 11.6-13.7 Platelets 199. 10^3/ul 150-400 Mean Platelet Volume 7.7 7.4-10.4 Ua - Micro ([facility]) 05/13/2004 [facility] Appearance CLEAR (607)- - Color YELLOW Glucose NEG Bilirubin NEG Ketones NEG SP Grav 1.010 Blood NEG PH 8.0 Protein NEG Urobil 0.2 Nitrite NEG Leukocytes 2+ Hyaline - /Lpf Granular - /Lpf WBC'S 6-8 RBC'S - Mucus - /Lpf Epith FEW Bacteria TRACE Amorphous SM AMT /Lpf Crystals - /Lpf Comments - Comp Metabolic ([facility]) 06/25/2002 [facility] Albumin 4.9 3.8-5.5 (607)- - Alkaline Phosphatase [...] 0.6-2.2 BUN/Creatinin Ratio 22.9 8.0-36 Lipid Profile ([facility]) 06/25/2002 [facility] Cholesterol 245 mg/dL High 140-200 (607)- - Triglyceride 95 mg/dL 30-150 VLDL 19 0-50 LDL-Calculated 126 0-160 HDL-Chol 100 High 35-85 CBC With Diff ([facility]) 06/25/2002 [facility] WBC 6.3 3.6-9.6 (607)- - Lymphocytes 30.2 [...] test finding 06/21/2002 [facility] 82.7 mIU/ml 30, 31 28 [place], [place] [id number] [phone] LH 38.7 mIU/ml 32 Ua - Non Micro ([facility]) 06/12/2002 [facility] Appearance CLEAR DK YELLOW (607)- - Glucose NEGATIVE Bilirubin NEGATIVE Ketones NEGATIVE SP Grav >=1.030 Blood 3+ PH 5.0 Protein SSA 1+ Urobil 0.2 Nitrite NEGATIVE Leukocytes NEGATIVE Laboratory test finding 08/21/1999 [facility] Urine Culture NEGATIVE (607)- - Ua - Micro ([facility]) 08/06/1999 [facility] Appearance YELLOW/CLOUDY (607)- [...] 6.2-8.1 Spep Comments SEE DETAIL See Report 33 Serum Immunofix SEE DETAIL 34 Laboratory test finding 07/24/1999 [facility] B12 503 pg/mL 190-1000 Folic Acid 14.4 NG/ML 2-16 Sed Rate 4 MM/HR 0-15 Hemoglobin A1c 5.1 % 4.3-5.8 Protime 07/02/1999 [facility] Protime 11.0 9.0-11.5 (607)- - Inr 1.1 Iron 3 Ibc 07/02/1999 [facility] Iron, Total 78 25-170 (607)- - Tibc 281 200-450 Iron Saturation Percent 28 12-57 Laboratory test 07/02/1999 [facility] Partial 24 20-34 finding (607)- - Thomboplastin Time CBC With Diff 07/02/1999 [facility] WBC 6.2 /Hpf 3.6 - 9.6 ([facility]) (607)- - Lymphocytes 31.2 % 20.5 - [...] Low 7.4 - 10.4 Ua - Micro ([facility]) 10/09/1997 [facility] Appearance YEL CLEAR (607)- - SP Grav 1.015 Esterase - Nitrite NEG pH 7.0 Protein NEG Glucose NEG mg/dL 70 - 110 Ketones NEG Urobil NEG Bilirubin, Micro NEG Blood POS Hyaline - /Lpf Granular - /Lpf WBC 5-7 /Hpf RBC 2-3 /Hpf Mucus - /Lpf Epith FILLED /Lpf Bacteria MOD /Hpf Amorphous - /Lpf Crystals - /Lpf CBC With Diff ([facility]) 10/09/1997 [facility] WBC 8.6 /Hpf 3.6 - 9.6 (607)- [...] 8.3 fl 7.4 - 10.4 Chol,Tri,HDL,VLDL,Chol//HDL 10/09/1997 [facility] HDL-Chol 89.4 mg/dL > 35 (607)- - Cholesterol 220 mg/dL High < 200 Triglyceride 77 mg/dL 35 - 160 LDL-Calculated 115 mg/dL <130 VLDL 15 mg/dL 6 - 40 Cholesterol / HDL Ratio 2.5 14 Element 10/09/1997 [facility] Alkaline Phosphatase 90 U/L 48 - 168 [...] BUN/Creatinin Ratio 20.0 12.0 - 20.0 1 Critical Result LACT:2.4 Called to [id number] at: 00:45:48 by:[id number] Read back by:[id number] [facility] Severe Sepsis and Septic Shock Management Bundle Measure requires all lactic acids initially measuring >2.0 mmol/L be repeated. 2 Because ethnic data is not always readily [...] 15-29 5 Kidney failure <15 (or dialysis) 3 [facility] Severe Sepsis and Septic Shock Management Bundle Measure requires all lactic acids initially measuring >2.0 mmol/L be repeated. 4 SEE RESULT BELOW Name: STARLA VARELA Darek : [address]: Kavitha Ballesteros MD Acct: [id number] Unit: [id number] AGE: 68 Location: [place] [address] Re11/18/18 Dis: 11/19/18 SEX: F Status: DIS Pita SPEC: [id number] [place]: 11/17/18 [facility] DR: Cortez Wagner MD REQ: [id number] RECD: 11/17/18 STATUS: RES OTHR DR: Ramakrishna Lundberg MD _ SOURCE: BLOOD,VENO SPDES: ORDERED: Blood Cult Procedure Result Reported Site Aerobic Culture Bottle Preliminary 11/21/182144 ML No Growth Day 4 Anaerobic Culture Bottle Preliminary 11/21/182144 ML No Growth Day 4 * ML - Main Lab . END OF REPORT DEPARTMENT OF PATHOLOGY, [address] [place] [address] Vladimir Singh M.D. Director [facility] # [id number] 5 SEE RESULT BELOW Name: STARLA VARELA : [address]: Kavitha Ballesteros MD Acct: [id number] Unit: [id number] AGE: 68 Location: [place] [address] Re11/18/18 SEX: F Status: ADM Pita SPEC: [id number] [place]: 11/18/18 [facility] DR: Cortez Wagner MD REQ: [id number] RECD: 11/18/18 STATUS: JOHNNY ELLER DR: Ramakrishna Lundberg MD _ SOURCE: URINE SPDESC: ORDERED: Urine Culture Procedure Result Reported Site Urine Culture Final 11/19/18- 939 ML No Growth (<1,000 CFU/mL) * ML - Main Lab . END OF REPORT DEPARTMENT OF PATHOLOGY, [address] [place] [address] Vladimir Singh M.D. Director [facility] # [id number] 6 Mass Spectrometry Manager: [id number] 7 SEE RESULT BELOW Name: STARLA VARELA Darek : [address]: Radha Jamison Acct: [id number] Unit: [id number] AGE: 68 Location: [place] Re11/17/18 SEX: F Status: REG ER SPEC: [id number] [place]: 11/17/18-[address]: Arnaud Bales MD REQ: [id number] RECD: 11/17/18 STATUS: JOHNNY ELLER DR: Ramakrishna Lundberg MD _ SOURCE: NASAL SPDESC: ORDERED: Flu A B Request Procedure Result Reported Site Rapid Influenza A B Request Final 11/17/181910 ML Specimen received for Influenza A/B Molecular testing * ML - Main Lab . END OF REPORT DEPARTMENT OF PATHOLOGY, [address] [place] [address] Vladimir Singh M.D. Director [facility] # [id number] 8 Dates / Results....2014 Other..............Post Menopausal No. of containers..01 CYTYC Thin Prep Vial [id number] NEGATIVE FOR INTRAEPITHELIAL LESION AND MALIGNANCY. 10 Satisfactory for evaluation. Endocervical and/or squamous metaplastic cells (endocervical component) are present. 11 Z01.419 12 Barney Early, Political Consultant ([facility]) 13 The Pap smear is a screening test designed to aid in the detection of premalignant and malignant conditions of the uterine cervix. It is not a diagnostic procedure and should not be used as the sole means of detecting cervical cancer. Both false-positive and false-negative reports do occur. 14 This liquid based ThinPrep(R) pap test was screened with the use of an image guided system. 15 This test detects fourteen high-risk HPV types (16/18/31/33/35/39/45/ 51/52/56/58/59/66/68) without differentiation. 16 REFERENCE VALUE <=1.0 (Negative) 17 REFERENCE VALUE <20.0 (Negative) 18 Tests for antibodies to dsDNA and JAY antigens are not performed automatically unless the MARY result is > or= 3.0 U. Studies performed at [facility] indicate that positive MARY results <3.0 U are rarely accompanied by positive second order tests. Test Performed by: [place] [address] Tree Surgeon Helper: Arturo Eduardo II, M.D., Ph.D. 19 Acute inflammation: >10.00 20 Serologic response to B. burgdorferi infection is not detected, but cannot rule out early infection during which low or undetectable antibody levels to B. burgdorferi may be present. If clinically indicated, a new serum specimen should be submitted in 7-14 days. Test Performed by: [place] [address] Tree Surgeon Helper: Arturo Eduardo II, M.D., Ph.D. 21 PATIENT HAS HISTORY OF BLOOD. PATIENT GOES TO UROLOGIST 22 Because ethnic data is not always readily [...] 15-29 5 Kidney failure <15 (or dialysis) 23 [employer]. DEPARTMENT OF PATHOLOGY or Extension 0904 SUPPLY CRIB ATTENDANT CYTOLOGY REPORT PATIENT: STARLA VARELA : 1950 AGE: 61 Y SEX: F ACCT: [id number] PROCEDURE DATE: 07/19/2012 DATE RECEIVED: 07/20/2012 REQUESTING PHYSICIAN: TRISHA MCKNIGHT NP LOCATION: [facility] Case No. 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 The Endocrine Society went on to further define vitamin D insufficiency as a level between 21 and 29 ng/mL (2). 1. IOM ([place] [employer]). 2010. Dietary reference intakes for calcium and D. [place]: The National Academies Press. 2. Kang MF, Juan R NC, Juan C STEVENSON, et al. Evaluation, treatment, and prevention of vitamin D deficiency: an Endocrine Society clinical practice guideline. JCEM. 2010; 96(7):1911-30. 25 COLLECTED FROM 10/23/08929 THROUGH 10/24/08929. 26 Please note change in reference range effective 08 . 27 REFERENCE RANGE: AM 8.7-22.4 PM LESS THAN 10 . 28 -- REFERENCE VALUE -- 25-HYDROXY D TOTAL (D2+D3) Optimum levels in the normal population are 25-80 Test Performed by: [facility] Dpt of Lab Med and Pathology [address] [place] [address] Tree Surgeon Helper: Hayden Bojorquez III, M.D. 29 FASTING; 1 SST TUBE 30 NON-FASTING 31 Follicular Phase: 4.0-13.0 mIU/mL Ovulatory Peak: 5.0-22.0 mIU/mL Luteal Phase: 2.0-13.0 mIU/mL Post-Menopausal: 20.0-138.0mIU/mL MALE: 1.0-8.0 mIU/mL . 32 Follicular Phase: 1.0-18.0 mIU/ml Ovulatory Peak: 24.0-105.0mIU/ml Luteal Phase: 0.4-20.0 mIU/ml Post-Menopausal: 15.0-62.0 mIU/ml MALES: 2.0-12.0 mIU/ml . 33 NORMAL ELECTROPHORECTIC PATTERN. 34 NORMAL SERUM IMMUNOFIXATION ELECTROPHORECTIC PATTERN. Procedures Date Code Description Status 11/11/2018 [id number] Mammogram Completed 01/08/2017 42110 Electrocardiogram Complete Completed 09/18/2016 [id number] Mammogram Completed 05/15/2015 [id number] Mammogram Completed 12/06/2014 31434 Pulse Oximetry Completed 11/05/2014 54836 Pulse Oximetry Completed 11/05/2014 26277 Electrocardiogram Complete Completed 06/27/2013 62803 Pulse Oximetry Completed 04/07/2013 11890 Dxa Bone Density [facility] FX Assessment Completed 04/07/2013 11757 Dxa Bone Density Study One Or More Sites Axial Completed Skeleton 03/31/2013 [id number] Mammogram Completed 03/13/2013 718412169 Bone Mineral Density Test Completed 08/23/2010 96257 Pulse Oximetry Completed 06/15/2007 23480227 Mammogram Completed 12/06/2006 15131413 Mammogram Completed 05/07/2006 [id number] Mammogram Completed 10/09/1997 06537 Electrocardiogram Complete Completed Encounters Type Date Location Provider Dx Diagnosis Office Visit 11/17/2018 [facility] Office Zuleyka Lakhani J15.9 Unspecified 1:00p DEONDRE Hung bacterial pneumonia Office Visit 01/27/2018 [facility] Office Crystal Crocker, S30.0xxA Contusion of lower 2:15p 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 MANAGER CPA back and pelvis, initial encounter W01.198A Fall same lev from slip/trip w strike agnst oth object, init Office Visit 11/26/2017 1:00p [facility] MELANI Will R05 Cough J06.9 Acute upper respiratory infection, unspecified J45.998 Other asthma Office Visit 04/26/2017 9:00a [facility] Trisha Z01.419 Encntr for wet machine operator Hilnadeen, exam (general) Afnp-C (routine) w/o abn findings Office Visit 01/08/2017 2:00p [facility] Ramakrishna Adames F32.89 Other specified Monica Lundberg depressive episodes R21 Rash and other nonspecific skin eruption M81.0 Age-related osteoporosis w/o current pathological fracture R31.9 Hematuria, unspecified R05 Cough G60.9 Hereditary and idiopathic neuropathy, unspecified Z00.00 Encntr for general adult medical exam w/o abnormal findings Office Visit 04/06/2016 10:40a [facility] Ramakrishna Lundberg M25.551 Pain in M.D. right hip R05 Cough Office Visit 11/22/2015 10:20a [facility] Ramakrishna Adames R21 Rash and other Toño, MYashDYash nonspecific skin eruption M81.0 Age-related osteoporosis w/o [...] 1:00p Main Office Ramakrishna Adames 466.0 Bronchitis Juan Lundberg M.D. Office Visit 11/05/2014 3:50p [facility] Ramakrishna FYash 466.0 Bronchitis Juan Lundberg M.D. 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 372.00 Conjunctivitis Acute Unspec Office Visit 10/06/2013 1:40p [facility] Ramakrishna Adames 733.00 Osteoporosis Office Monica Lundberg Unspec 311 Depressive Disorder Not Elsewhere Spec v04.81 Need For Prophylactic Vaccination & Inoculation/Influenza Office Visit 06/27/2013 1:00p [facility] Trisha 461.0 Sinusitis Acute [place], Afnp-C Maxillary Office Visit 03/24/2013 3:00p [facility] Ramakrishna FYash 311 Depressive Monica Lundberg Disorder Not Elsewhere Spec 733.00 Osteoporosis Unspec 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 599.70 Hematuria, Unspecified V76.41 Screening Malignant Neoplasm Rectum 782.9 Skin & Integumentary Tissue Other Symptoms Office Visit 07/19/2012 10:00a [facility] Trisha V76.19 Screening Breast [place], Afnp-C Exam Malignant Neoplasms Other V76.2 Screening Malignant Neoplasm Cervix V72.31 Routine Draw Operator Examination 733.00 Osteoporosis Unspec V76.41 Screening Malignant [...] M.D. 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 Two 692.89 Dermatitis Due To Spec Agents Other Office Visit 06/03/2006 10:20a Main Office Gera Blackman, V70.0 Examination General [...] Office Crystal Crocker, 719.46 Pain Joint Lower ACCOUNTING MANAGER CPA Leg Office Visit 01/09/2005 10:45a Main Office Crystal Crocker, 599.0 UTI Urinary Tract ACCOUNTING MANAGER CPA Infection Site Not Spec Office Visit 09/02/2004 8:15p Main Office Chayo Cormier 599.0 UTI Urinary Tract ACCOUNTING MANAGER CPA-C Infection Site Not Spec Office Visit 04/25/2004 [...] Main Office Gera Blackman, 300.4 Dysthymic Disorder Monica 309.81 Posttraumatic Stress Disorder Office Visit 06/12/2002 7:20p Main Office Marcellus Moy M.D. Office Visit 04/25/2002 1:00p Main Office Gera Blackman M.D. Office Visit 09/15/2001 3:00p Main Office Qing [place] Office Visit 07/13/2000 6:15p Main Office Qing [place] Plan of Treatment Future Appointment(s):04/03/2019 2:00 pm - [facility]ak[facility] M[facility]D. at [facility]11/22/2018 - Ramakrishna Lundberg M.D.J15.9 Unspecified bacterial pneumoniaComments:Doing well on present dose of doxycycline, repeat chest x-ray in 3 weeks, mammogram was ordered, she'll return for complete physical, patient was reminded about a colonoscopy this year given her familyhistory of colon cancer, stool Hemoccults were given, will give Prevnar and pneumovax in the xqyjyyA79.998 Other asthmaComments:continue present medicationAllComments:chest xray in 2-3 weeks
--- OUTSIDE RECORDS SUMMARY | 2018-11-29 20:54 | XMS REPORT | Continuity of Care Document ---
:1950 External Reference #:[id number] Author Name Maxi Lyssa Care Team Providers Name Role Phone Ramakrishna Lundberg MD Primary Care Physician Unavailable Payers Date Identification Numbers Payment Provider Subscriber Policy Number: [id number] [facility] Health Ins Ppo/Epo Starla Storey PayID: [id number] [address] [place] [address] Expires: 2017 Policy Number: [id number] [facility] Health Ins Ppo/Epo Starla Storey Group Number: [id number] [address] PayID: [id number] [place] [address] Policy Number: [id number] Medicare Starla Storey PayID: [id number] [address] [place] [address] Advance Directives Description No Information Available Problems Date Description Provider Status Onset: 08/11/2016 Gastroesophageal reflux disease Rashida Gama MD Active Onset: 07/08/2016 Cough Rashida Gama MD Active Family History Date Family Member(s) Observation Comments General Cancer Father due to CAD () Father due to OR () Father due to Age 61 () Mother due to Colon Cancer () - at age 74 Social History Type Date Description Comments Sex Unknown Marital Status Lives With Occupation Retired Tobacco Use Start: Unknown Never Smoked Cigarettes Smoking Status Reviewed: 09/15/17 Never Smoked Cigarettes ETOH Use Occasionally consumes alcohol Tobacco Use Start: Unknown Patient has never smoked NO pets Recreational Drug Use Denies Drug Use Exercise Type/Frequency Exercises sporadically Allergies, Adverse Reactions, Alerts Description No Known Drug Allergies Medications Medication Date Status Form Strength Qnty SIG Indications Ordering Provider Xuan Avitia Active Aerosol 62.5mcg/Inh 30unit inhale Rashida 018 s one puff MD Natan by mouth every day Breo Ellipta Active Aerosol 100-25mcg/I 60unit 1 puff Rashida 018 nh s inhaled MD Natan daily Citalopram Active Tablets 40mg 1 by Unknown Hydrobromide 016 mouth every day Stiolto Hx Aerosol 2.5-2.5mcg/ 12gm 1 puff Rahsida Respimat 018 - Act daily MD Natan 018 Spiriva Hx Aerosol 2.5mcg/Act 4units 2 puffs Rashida Respimat 018 - every day MD Natan 018 Ranitidine HCL Hx Tablets 150mg 30tabs 1 by K21.9 Rashida 016 - mouth at MD Natan night 017 Immunizations Description No Information Available Vital Signs Date Vital Result Comment 09/15/2017 2:19pm Height 67.5 inches 5'7.50" Weight 144.00 lb Heart Rate 70 /min BP Systolic 110 mmHg BP Diastolic 66 mmHg Respiratory Rate 15 /min Body Temperature 97.7 F Pain Level 0 BMI (Body Mass Index) 22.2 kg/m2 09/01/2017 9:48am Height 67.5 inches 5'7.50" Weight 144.00 lb w/ shoes Heart Rate 78 /min reg BP Systolic Sitting 86 mmHg Lue, reg cuff BP Diastolic Sitting 60 mmHg Lue, reg cuff Respiratory Rate 16 /min O2 % BldC Oximetry 97 % on Ra BMI (Body Mass Index) 22.2 kg/m2 08/18/2017 2:35pm Height 67.5 inches 5'7.50" Weight 138.00 lb BP Systolic 108 mmHg BP Diastolic 72 mmHg Respiratory Rate 18 /min Pain Level 0 BMI (Body Mass Index) 21.3 kg/m2 07/28/2017 1:08pm Height 67.5 inches 5'7.50" Weight 138.00 lb Heart Rate 89 /min BP Systolic 109 mmHg BP Diastolic 67 mmHg Body Temperature 97.7 F BMI (Body Mass Index) 21.3 kg/m2 07/19/2017 9:16am Height 67.5 inches 5'7.50" Weight 141.00 lb Heart Rate 76 /min BP Systolic Sitting 90 mmHg BP Diastolic Sitting 62 mmHg Respiratory Rate 14 /min O2 % BldC Oximetry 98 % BMI (Body Mass Index) 21.8 kg/m2 07/12/2017 10:22am Height 67.5 inches 5'7.50" Weight 138.00 lb Heart Rate 84 /min BP Systolic 110 mmHg BP Diastolic 60 mmHg Body Temperature 98.1 F Pain Level 0 BMI (Body Mass Index) 21.3 kg/m2 06/30/2017 11:26am Height 67.5 inches 5'7.50" Weight 138.00 lb Heart Rate 80 /min BP Systolic 108 mmHg BP Diastolic 70 mmHg Body Temperature 97.5 F BMI (Body Mass Index) 21.3 kg/m2 08/11/2016 3:26pm Height 67 inches 5'7" Weight 144.00 lb Heart Rate 82 /min BP Systolic Sitting 118 mmHg BP Diastolic Sitting 68 mmHg Respiratory Rate 14 /min O2 % BldC Oximetry 96 % BMI (Body Mass Index) 22.6 kg/m2 07/08/2016 8:06am Height 67 inches 5'7" Weight 144.00 lb Heart Rate 74 /min BP Systolic 106 mmHg BP Diastolic 70 mmHg Respiratory Rate 14 /min O2 % BldC Oximetry 98 % BMI (Body Mass Index) 22.6 kg/m2 Neck Circumference in inches 12.5 Results Test Date Facility Test Result H/L Range Note Laboratory test [facility] Alpha 1 Antitrypsin 138 mg/ dL N 100 - 190 1 finding [address] [place] [address] [phone] Anca Panel For [facility] Myeloperoxidase AB < 0.2 U N 2 Vasculitis [address] [place] [address] [phone] Proteinase 3 AB < 0.2 U N 3 Igg Subclasses 07/19/2017 [facility] Total IgG 646 mg/dL Abnormal 767 - [address] [place] [address] [phone] Immunoglobulin G1 333 mg/dL Abnormal 341 - 894 Immunoglobulin G2 259 mg/dL N 171 - 632 Immunoglobulin G3 26.4 mg/dL N 4 Immunoglobulin G4 16.9 mg/dL N 5 Laboratory test 07/19/2017 [facility] Immunoglobulin E 151 kU/L N <=214 6 finding [address] [place] [address] [phone] Immunoglobulin A (Iga) 246 mg/dL N 61 - 356 7 [place] 07/19/2017 [facility] Alternaria tenuis <0.35 kU/ L N 8 Panel [address] [place] [address] [phone] Cat Epithelium Allergen IgE <0.35 kU/L N 9 Cladosporium herbarum IgE <0.35 kU/L N 10 Dermatophagoides farinae IgE <0.35 kU/L N 11 Dog Dander Allergen IgE <0.35 kU/L N 12 [place] Blue (February) Grass IgE <0.35 kU/L N 13 [place] Allergen IgE <0.35 kU/L N 14 Notus Allergen IgE <0.35 kU/L N 15 Common Ragweed (Short) Allerge <0.35 kU/L N 16 Kevin Grass Allergen IgE <0.35 kU/L N 17 Laboratory test 07/19/2017 [facility] Rheumatoid Factor <15 IU/ mL N <15 18 finding [address] [place] [address] [phone] Scleroderma AB 07/19/2017 [facility] Scleroderma Ab <0.2 U N 19 (SCL70) [address] [place] [address] [phone] Laboratory test 07/19/2017 [facility] Anti Nuclear 0.3 U N 20 finding [address] [address] [phone] 1 Test Performed by: [facility] [employer] - [address] [address] 2 REFERENCE VALUE <0.4 (Negative) 3 REFERENCE VALUE <0.4 (Negative) Test Performed by: [facility] [employer] - [address] [address] 4 REFERENCE VALUE 18.4 - 106.0 5 REFERENCE VALUE 2.4 - 121.0 Test Performed by: [address] [address] 6 Test Performed by: [facility] [employer] [facility] [place] [address] 7 Test Performed by: [address] [address] 8 Class 0 (Negative <0.35) 9 Class 0 (Negative <0.35) 10 Class 0 (Negative <0.35) 11 Class 0 (Negative <0.35) Test Performed by: [facility] [employer] [facility] [place] [address] 12 Class 0 (Negative <0.35) 13 Class 0 (Negative <0.35) 14 Class 0 (Negative <0.35) 15 Class 0 (Negative <0.35) 16 Class 0 (Negative <0.35) 17 Class 0 (Negative <0.35) 18 Test Performed by: [address] [address] 19 REFERENCE VALUE <1.0 (Negative) Test Performed by: [address] [address] 20 REFERENCE VALUE <=1.0 (Negative) Test Performed by: [address] [address] Procedures Date Code Description Status 07/02/2017 86585 Open TX Of Distal Radial Intra-Articular FX Or Epiphyseal Completed Septn 07/02/2017 25526 Open TX Of Distal Radial Intra-Articular FX Or Epiphyseal Completed Septn 07/14/2016 72672 Diffusing Capacity Completed 07/14/2016 99513 Plethysmography Determination Lung Volumes & Per Airway Completed Resist 07/14/2016 46800 Pulmonary Function><Bronchodil Completed Encounters Type Date Location Provider Dx Diagnosis Office Visit 10/20/2018 [facility] Dermatology Bright Chaidez MD L82.1 Other seborrheic 11:20a keratosis L20.84 Intrinsic (allergic) eczema D23.9 Other benign neoplasm of skin, unspecified Z80.8 Family history of malignant neoplasm of organs or systems Office Visit 09/01/2017 9:45a [facility] Office Visit 07/19/2017 9:30a [facility] Office Visit 06/30/2017 11:00a Orthopedic Saba S52.571A [facility] Foster fracture of C.M.A. lower end of right radius, init Office Visit 08/11/2016 3:15p Pulmonology And Rashida Gama [facility] K21.9 Gastro-esophageal reflux disease without esophagitis Office Visit 07/08/2016 8:00a Pulmonology And Sleep Rashida Gama MD R05 [facility] Z77.22 Cntct w and expsr to environ tobacco smoke (acute) (chronic) Plan of Treatment Future Appointment(s):12/13/2018 9:15 am - Rashida Gama MD at [facility]09/15/2017 - Saba Foster M.D.M25.561 Pain in right kneeFollow up:Follow up: As iaqhfrP69.571D Other intraarticular fracture of lower end of right radius, subsequent encounter for closedfracture with routine healing
--- OUTSIDE RECORDS SUMMARY | 2018-11-29 20:55 | XMS REPORT | Continuity of Care Document ---
:1950 External Reference #:[id number] Author Name Zuleyka Hung NP Address [address] [facility] [place] [address] Care Team Providers Name Role Phone Ramakrishna Lundberg MD Care Team Information Engineering Professionals Unavailable Ramakrishna Lundberg MD Primary Care Physician Unavailable Payers Date Identification Numbers Payment Provider Subscriber Effective: 2017 Policy Number: [id number] [employer] Starla Varela PayID: [id number] [address] [place] [address] Advance Directives Description No Information Available Problems [...] Observation Comments Onset: (age 57 Years) Father [place] smoker, Onset: (age 73 Years) Mother Colon Cancer First Sister Multiple Sclerosis (MS) First Sister Ankylosing Spondylitis Social History Type Date Description Comments Sex Unknown Marital Status Patient is Living Situation Lives with spouse General retired peoples [employer] Tobacco Use Start: Unknown Never Smoked Cigarettes [...] Potassium /2018 s by mouth Abhilash, twice TEXTBOOK ASSOCIATE daily until gone Ondansetron HCL 11/17 Active Tablets 4mg 15tab take one J15.9 Zuleyka C. /2018 s by mouth Abhilash, every 6 TEXTBOOK ASSOCIATE hours as needed for vomiting Ventolin HFA 11/17 Active Aerosol 108(90Bas 18gm take 1-2 J15.9 Zuleyka C. /2018 e) puffs Abhilash, mcg/Act inhaled TEXTBOOK ASSOCIATE every 4 hours as needed for wheezing [...] 1pack dose-pack R05 as Nathan, - instructed WINDOWS SYSTEMS ARCHITECT 12/11 Tessalon Perles 11/26 Hx Capsules 100mg 30cap one to two R0 s tabs by Nathan, - mouth WINDOWS SYSTEMS ARCHITECT 11/26 times a day as needed cough Cheratussin ac 11/26 Hx Syrup 100-10mg/ 118ml 5-10 mL by 5ML mouth Nathan, - every WINDOWS SYSTEMS ARCHITECT 12/11 night at bedtime as needed cough [...] in 372.00 Teresa os tid x Ramón TEXTBOOK ASSOCIATE - 7 days 05/09 Benzonatate 02/14 Hx Capsules 100mg 30cap 1 po tid 466.0 Teresa s prn for DEONDRE Melgar - cough 02/24 Celexa 11/18 Hx Tablets 40mg 90tab Take 1 Ramakrishna F. s Tablet By Toño, - Mouth M.D. 10/12 Every Day Zostavax 10/06 Hx Solution [id number]/ 1dose inject Ramakrishna F. Rec 0.65ML [facility], - M.D. 05/09 Doxycycline 06/27 Hx Capsules 100mg 20cap 1 po bid Trisha Hyclate s Juan Luis, - Afnp-C 07/07 Fluocinonide 03/24 Hx Cream 0.05% 30gm apply to Ramakrishna F. affected [facility], - area qd M.D. 06/27 prn Zostavax 03/24 Hx Solution [id number]/ 1dose inject Ramakrishna F. Rec 0.65ML Shallish, - M.D. 06/27 Ergocalciferol 03/24 Hx Capsules 32875Qnlg 15cap 1 capsule Ramakrishna F. s po every Shallish, - week for 4 M.D. 09/29 weeks, ,then 1 po qmonth Mometasone 05/13 Hx Cream 0.1% 45gm apply tid Ramakrishna F. Fur prn [facility], - M.D. 03/24 Septra DS 08/23 Hx [...] 0.05% 30gm apply to Ramakrishna F. affected [facility], - area tid M.D. 04/16 Doxycycline 06/27 Hx Capsules 100mg 2caps 2 p0 x 1 911.4 Trisha Hyclate /2007 Juan Luis, - Afnp-C 06/28 Zyrtec 01/13 Hx Tablets 10mg 30tab 1 po qd 782.1 Crystal gemma Crocker, - WINDOWS SYSTEMS ARCHITECT 12/17 Boniva 12/11 Hx Tablets 150mg 6tabs 1 po Ramakrishna F. qmonth Phuong Lundberg M.D. 06/18 Fish Oil 05/11 Hx 1000mg 1 PO qd [facility] 05/09 Mitchell Vitamin E 05/11 Hx Capsules 400Units 0caps 1 PO qd [facility] 09/29 Mitchell Multivitamin With 05/11 Hx 100un 1 PO qd its [facility] 11/25 Mitchell Calcium+Vit.D 05/11 Hx 600mg 1 po qd [facility] 09/29 Mitchell Vicodin 08/13 Hx Tablets 5mg;500 120ta 1 [...] 1 PO qweek [facility] 03/26 Mitchell Fish Oil - [place] 11/30 Hx 1000mg A day Gera JYash [...] 1 qd Chayo R ts Cas[place], - WINDOWS SYSTEMS ARCHITECT-C 01/09 Pyridium 09/02 Hx 100mg 15uni 1 po tid Chayo ts prn [place], - WINDOWS SYSTEMS ARCHITECT-C 01/09 Calcium With Vit 04/25 Hx 600mg [...] CPT Code Status Date Vaccine Lot # [id number] Given 07/07/2018 High-Dose, Influenza Virus Vacccine-fluzone 65 and older [id number] Given 06/15/2017 Influenza vac quadrivalent preservative free 3yrs and up 27485 Given 10/06/2013 Preservative free flu 3 yrs+ and older [id number] 02882 Given 05/13/2012 DO Not Use Split Influenza Virus Vaccine [id number] 23777 Given 06/30/2011 DO Not Use Split Influenza Virus Vaccine [id number] 49976 Given 06/21/2010 DO Not Use Split Influenza Virus Vaccine [id number] 33712 Given 10/01/2009 H1N1 Virus Vaccine [id number] 25090 Given 10/01/2009 H1N1 Immunization Intramuscular/Intranasal W Counseling 60175 Given 06/18/2008 DO Not Use Split Influenza Virus Vaccine [id number] 87163 Given 12/12/2007 Tdap Tetanus, W Pertussis [id number] 89626 Given 07/29/2006 DO Not Use Split Influenza Virus Vaccine [id number] 25145 Given 07/28/2005 DO Not Use Split Influenza Virus Vaccine 57436 Given 04/25/2004 Td Immunization, For Use In Individuals 7 Years Or Older 43197 Given 07/31/2003 DO Not Use Split Influenza Virus Vaccine 95494 Given 07/31/2003 DO Not Use Split Influenza Virus Vaccine 75347 Given 07/08/1999 DO Not Use Split Influenza Virus Vaccine 01034 Given 07/30/1998 Influenza Immunization 74479 Given 07/11/1997 Influenza Immunization Vital Signs Date [...] Date Facility Test Result H/L Range Note Influenza A&B-fma 11/17/2018 [facility] Influenza A NEG (607)- - Influenza B NEG Traveling Buyer Pap Test Age-Based GL Cerv 04/26/2017 [facility] Age 30-65 1 CA [address] STDS [address] [place] [address] (607)- - Age 0804/26/2017 [facility] Age 30-65 [address] [place] [address] (605)- - Diagn See Comment: 2 Adeq See Comment: 3 Cicd10 See Comment: 4 Perfor See Comment: 5 Comm . Note See Comment: 6 Iglbp See Comment: 7 HPV Aptima Negative Negative 8 Laboratory test 04/26/2017 [facility] PDF [id number] SEE IMAGE finding [address] [place] [address] (319)- - Laboratory test 01/08/2017 Patel Dupree ([facility]) TSH 1.69 mIU/L 0.50- finding 6.00 Lipid Profile 01/08/2017 Patel Dupree (a) Cholesterol 299 mg/dL High 120-2 00 Triglycerides 98 mg/dL 30-200 HDL Cholesterol 94 mg/dL High 30-85 LDL (Calculated) 185 CALC High 0-129 VLDL Cholesterol 20 mg/dL 0-50 HDL Risk Factor 3.2 CALC 0.0-4.4 Comprehensive Metabolic 01/08/2017 Patel Dupree (a) Sodium [...] >60 ml/min/1.73m^ >=60 Complete Blood Count 01/08/2017 Patel Dupree ([facility]) WBC 6.9 x10^3/UL 3.6-9.6 RBC 4.36 x10^6/UL 3.90-5.70 HGB 13.7 g/dL 12.1-17.2 HCT 40 % 36-50 MCV 93.0 fL 82.2-97.4 MCH 31.5 pg 27.6-33.3 MCHC 34.1 g/dL 33.0-35.5 RDW 13.5 % 11.6-13.7 PLT 309 x10^3/UL 150-400 MPV 6.9 fL Low 7.4-10.4 Gran # 4.6 x10^3/UL 1.5-7.2 Lymph# 2.0 x10^3/UL 0.7-4.9 Donley# 0.3 x10^3/UL 0.1-0.9 Gran % 65.2 % 42.2-75.2 Lymph % 30.2 % 20.5-51.1 Donley% 4.6 % 1.7-9.3 Ua - Micro (Fma) 01/08/2017 [facility] Medicine Appearance slt cloudy (607)- - Color [...] Fluid (Fma/CMC/CTX) - Connective Tissue Panel 04/06/2016 [facility] Anti-Nuclear Antibody 0.4 U N 9 Cyclic Citrullinated Peptide <15.6 U N 10 Interpretation See Comment N 11 Laboratory test finding 04/06/2016 [facility] C Reactive Protein < 1.00 mg/L N < 5.00 12 Lyme Disease Serology Negative N Negative 13 Complete Blood Count 11/05/2014 Sweeney Leia (a) WBC 7.6 x10^3/UL 3.6-9.6 RBC 4.11 x10^6/UL 3.90-5.70 HGB 13.0 g/dL 12.1-17.2 HCT 39 % 36-50 MCV 95.0 fL 82.2-97.4 MCH 31.7 pg 27.6-33.3 MCHC 33.4 g/dL 33.0-35.5 RDW 11.5 % Low 11.6-13.7 PLT 246 x10^3/UL 150-400 MPV 6.6 fL Low 7.4-10.4 Gran # 5.0 x10^3/UL 1.5-7.2 Lymph# 2.3 x10^3/UL 0.7-4.9 Donley# 0.3 x10^3/UL 0.1-0.9 Gran % 64.2 % 42.2-75.2 Lymph % 30.8 % 20.5-51.1 Donley% 5.0 % 1.7-9.3 Comprehensive Metabolic 11/05/2014 Sweeney Leia (a) Sodium 139 mEq/L 134-149 Prof Potassium [...] Protein NEG Urobil 0.2 Nitrite NEG Leukocytes (Fma/[facility]) NEG Urinalysis W/Microscopic 11/03/2013 [facility] Urine Color Yellow Urine Appearance Clear Urine Specific Clare 1.014 1.010-1.030 Urine Esterase Trace Abnormal Negative [...] test finding [address] Serum nmolBCE/[place] [address] [phone] CBC 10/06/2013 [facility] WBC 6.9 3.6-9.6 Electronic (607)- - (Fma) [...] >60 15 Ua - Micro (Fma) 04/07/2013 [facility] Appearance clear (607)- - Color yellow [...] [facility] Thin Prep SEE 16 finding [address] W/HPV(Lsil/ARLEEN/Asc) [place] [address] [phone] Comprehensive 07/19/2012 Patel Leia (a) Albumin 5.0 [...] Calc 8.0-36.0 Lipid Profile 07/19/2012 Patel Leia (Fma) Cholesterol 320 mg/dL High 120-200 HDL 74 mg/dL 30-85 Triglycerides 105 mg/dL 30-200 HDL Risk Factor 4.3 CALC 0.0-4.4 LDL (Calculated) 225 CALC High 0-129 VLDL (Calculated) 21 mg/dL 0-50 Laboratory test 07/19/2012 Sweeney Flora ([facility]) TSH 1.43 mIU/L 0.50- 6.00 finding Laboratory test 07/19/2012 [facility] Vitamin D, 25 21.4 ng/mL Low 30.0- 100.0 17 finding [address] [place] [address] [phone] CBC Electronic 07/19/2012 [facility] WBC 5.6 3.6-9.6 ([facility]) (607)- - RBC 4.27 3.90-5.70 Hemoglobin (Fma/CMC/CTX) 13.4 g/dL 12.1 - 17.2 Hematocrit (Fma/CMC/CTX) 40.2 % 36.1 - 50.3 Platelets 276 10^3/ul 150-400 Lymph% 34.4 20.5-51.1 Mixed% 8.6 Neutrophils % 57.0 Mean Corpuscular Vol 94 82.2-97.4 Mean Corpuscular Hemoglobin 31.3 27.6-33.3 Mean Corpuscular Hemo Concen 33.3 32.0-36.0 RDW 13.8 High 11.6-13.7 Mean Platelet Volume 6.4 Low 6.5-11.0 Ua - Non Micro ([facility]) 07/19/2012 [facility] Appearance CLEAR (607)- - Color YELLOW Glucose, Urine (Fma/CMC/CTX) NEG Bilirubin NEG Ketones NEG SP Grav 1.020 Blood MODERATE # Done After Pap PH 7.0 Protein NEG Urobil 1.0 Nitrite NEG Leukocytes (Fma/CMC/[facility]) NEG Complete Blood Count 12/17/2008 Patel Dupree (a) WBC 7.1 x10^3/uL 3.6-9.6 Gran# 4.5 [...] 12.2 % 11.6-13.7 Comprehensive Metabolic 12/17/2008 Patel Dupree (Fma) Albumin 4.9 g/dL 3.8-5.5 Prof Alk. [...] Ratio 30.2 Calc 8.0-36.0 Laboratory test 12/17/2008 Patel Dupree (a) Free T4 1.09 ng/dL 0.75- 1.54 finding TSH 1.20 mIU/L 0.50-6.00 Laboratory test 12/17/2008 [facility] Sed Rate 14mm finding (607)- - (Fma/CMC/[facility]) Calcium 24HR 10/24/2008 [facility] Calcium Random Urine 20.2 mg/dL 18 Urine Urine Calcium/24HR 363.6 MG/24HR 50-400 Hours Of Collection 24 HR 24- Urine Volume Measurement 1800 ML Laboratory test finding 10/22/2008 [facility] Calcium 9.1 mg/dL 8.1-9.9 19 Phosphorus 3.2 mg/dL 2.4-4.7 Magnesium 2.5 mg/dL 1.7-2.6 Alkaline Phosphatase 50 U/L 30-110 Vitamin B12 487 pg/mL 180-914 Cortisol 17.2 g/dL 20 Vitamin D, 25 Hydroxy 10/22/2008 [facility] 25-Hydroxy Vitamin D2 <4.0 ng/mL ( ) 25-Hydroxy Vitamin D3 42 ng/mL () 25-Hydroxy Vitamin D Total 42 ng/mL () 21 Laboratory test 06/25/2008 [facility] SEE IMAGE finding Inc. REPORT Lipid Profile 12/12/2007 Patel Dupree ([facility]) Cholesterol 281 mg/dL High 120-20 0 HDL 88 mg/dL High 30-85 Triglycerides 105 mg/dL 30-200 HDL Risk Factor 3.2 CALC Low 4.2-7.0 LDL (Calculated) 172 CALC High 0-129 VLDL (Calculated) 21 mg/dL 0-50 Comprehensive Metabolic 12/12/2007 Patel Dupree ([facility]) Albumin 4.3 g/dL 3.8-5.5 Prof Alk. Phos. [...] 8.0-36.0 Laboratory test finding 12/12/2007 Patel Dupree ([facility]) TSH 1.72 mIU/L 0.50-6.00 Complete Blood Count 12/12/2007 Patel Dupree ([facility]) WBC 7.7 x10^3/u 3.6 -9.6 Gran# 5.3 [...] RDW 12.4 % 11.6-13.7 Ua - Micro ([facility]) 08/16/2006 [facility] Appearance CLEAR (607)- - Color LIGHT YELLOW [...] C-Reactive <0.1 mg/dL 0.0-0.5 22 finding 28 [facility] Protein [place] [phone] Comp Metabolic 06/03/2006 [facility] Glucose, Serum 89 mg/dL 70- 105 ([facility]) Female (607)- - (Fma/CMC/CTX) BUN (Fma/CMC/[facility]) 14 mg/dL 6-26 Creatinine, Serum 0.8 mg/dL 0.6-1.4 BUN/Creatinin Ratio 17.6 8.0-36 Sodium 143 134-149 Potassium 4.3 3.6-5.5 Chloride 100 mEq/L 94-112 Co2 29 21-32 Calcium (Fma/CMC/[facility]) 9.3 mg/dL 8.6-10.2 Total Protein 7.2 g/dL 6.3-8.1 Albumin (a/[facility]CC/[facility]) 4.4 3.8-5.5 Globulin 2.8 2.0-4.8 A/G Ratio (A/G Ratio) 1.5 0.6-2.2 Alkaline Phosphatase (F/C/CTX) 40 U/L 30-110 Alt (SGPT) Female ([facility]) 10 7-35 Ast Sgot 16 U/L 5-34 Bilirubin, Total 0.4 mg/dL 0.2-1.3 Laboratory test 06/03/2006 [facility] TSH ([facility]/CMC/[facility]) 0.73 uIU/ ml 0.5-6.0 finding (607)- - Free T4 (a/CMC/[facility]) 1.26 ng/dL 0.75-1.54 Free T3 ([facility],CX) 2.68 pg/mL 2.0-4.9 Sed Rate (a/CMC/[facility]) 7 MM CBC ([facility]) ([facility]) 06/03/2006 [facility] WBC 6.1 3.6-9.6 (607)- - Lymphocytes 26.4 [...] Platelet Volume 7.8 7.4-10.4 Ua - Micro ([facility]) 06/03/2006 [facility] Appearance CLEAR (607)- - Color LT YELLOW [...] NOT A CLEAN CATCH Ua - Micro ([facility]) 04/24/2006 [facility] Appearance TURBID (607)- - Color LIGHT YELLOW Glucose NEGATIVE Bilirubin NEGATIVE Ketones TRACE # SP Grav 1.015 Blood 3+ High [place] PH 7.5 Protein, Random Urine NEGATIVE Urobil 0.2 Nitrite NEGATIVE Leukocytes (a/CMC/[facility]) 2+ # Hyaline - /Lpf Granular - /Lpf WBC, Fluid >75 SOME CLUMPED RBC, Fluid 25-30 Mucus - /Lpf Epith OCC /Lpf Bacteria TRACE /Hpf Amorphous - /Lpf Crystals, Urine (a/CMC/CTX) - /Lpf Misc - Ua - Micro ([facility] New) 01/09/2005 [facility] Appearance CLOUDY (607)- - Color LT YELLOW Glucose NEG Bilirubin NEG Ketones NEG SP Grav 1.010 Blood NEG PH 8.0 Protein NEG Urobil 0.2 Nitrite NEG Leukocytes 2+ Hyaline - /Lpf Granular - /Lpf WBC'S TNTC RBC'S 1-3 Mucus - /Lpf Epith MANY Bacteria 3+ Amorphous - /Lpf Crystals - /Lpf Comments - Ua - Micro ([facility] New) 09/02/2004 [facility] Appearance CLOUDY (607)- - Color ORANGE Glucose NEG Bilirubin NEG Ketones TRACE SP Grav >1.030 Blood 3+ PH 5.0 Protein SSA +2 Urobil 1.0 Nitrite NEG Leukocytes 1+ Hyaline - /Lpf Granular - /Lpf WBC'S 60-70 RBC'S 20-30 Mucus SM AMNT /Lpf Epith MOD Bacteria 1+ Amorphous - /Lpf Crystals - /Lpf Comments - Comp Metabolic 05/13/2004 [facility] Glucose, Serum 89 mg/dL 70- 118 ([facility]) Female (607)- - (Fma/CMC/CTX) BUN (a/CMC/[facility]) 18 [...] Bilirubin, Total 0.5 mg/dL 0.2-1.3 Lipid Profile ([facility]) 05/13/2004 [facility] Cholesterol 270 mg/dL High 120-200 Female (607)- - Triglyceride 71 mg/dL 30-200 HDL-Chol 113 mg/dL High 30-85 LDL, Calculated ([facility]) 143 CALC High 0-129 LDL, Direct - mg/dL 0-130 VLDL 14 0-50 HDL Risk Factor ([facility]) 2.4 CALC Low 4.2-7.0 Laboratory test 05/13/2004 [facility] TSH ([facility]) 2.64 uIU/ ml 0.5-6.0 finding (607)- - CBC Electronic 05/13/2004 [facility] WBC 5.7 3.6-9.6 ([facility]) (607)- - Lymphocytes 34.6 % 20.5 - [...] Platelet Volume 7.7 7.4-10.4 Ua - Micro ([facility] New) 05/13/2004 [facility] Appearance CLEAR (607)- - Color YELLOW Glucose NEG Bilirubin NEG Ketones NEG SP Grav 1.010 Blood NEG PH 8.0 Protein NEG Urobil 0.2 Nitrite NEG Leukocytes 2+ Hyaline - /Lpf Granular - /Lpf WBC'S 6-8 RBC'S - Mucus - /Lpf Epith FEW Bacteria TRACE Amorphous SM AMT /Lpf Crystals - /Lpf Comments - Comp Metabolic ([facility]) 06/25/2002 [facility] Albumin 4.9 3.8-5.5 (607)- - Alkaline Phosphatase [...] 0.6-2.2 BUN/Creatinin Ratio 22.9 8.0-36 Lipid Profile ([facility]) 06/25/2002 [facility] Cholesterol 245 mg/dL High 140-200 (607)- - Triglyceride 95 mg/dL 30-150 VLDL 19 0-50 LDL-Calculated 126 0-160 HDL-Chol 100 High 35-85 CBC With Diff ([facility]) 06/25/2002 [facility] WBC 6.3 3.6-9.6 (607)- - Lymphocytes 30.2 [...] [facility] FSH 82.7 mIU/ml 23, 24 [address] [place] [phone] LH 38.7 mIU/ml 25 Ua - Non Micro (a New) 06/12/2002 [facility] Appearance CLEAR DK YELLOW (607)- - Glucose NEGATIVE Bilirubin NEGATIVE Ketones NEGATIVE SP Grav >=1.030 Blood 3+ PH 5.0 Protein SSA 1+ Urobil 0.2 Nitrite NEGATIVE Leukocytes NEGATIVE Laboratory test finding 08/21/1999 [facility] Medicine Urine Culture NEGATIVE (607)- - Ua - [...] A1c 5.1 % 4.3-5.8 Protime 07/02/1999 [facility] Protime 11.0 9.0-11.5 (607)- - Inr 1.1 Iron 3 Ibc 07/02/1999 [facility] Iron, Total 78 25-170 (607)- - Tibc 281 200-450 Iron Saturation Percent 28 12-57 Laboratory test 07/02/1999 [facility] Partial 24 20-34 finding (607)- - Thomboplastin Time CBC With Diff 07/02/1999 [facility] WBC 6.2 /Hpf 3.6 - 9.6 (a) [...] 10.4 Ua - Micro (a Old) 10/09/1997 [facility] Appearance YEL CLEAR (607)- - SP Grav 1.015 Esterase - Nitrite NEG pH 7.0 Protein NEG Glucose NEG mg/dL 70 - 110 Ketones NEG Urobil NEG Bilirubin, Micro NEG Blood POS Hyaline - /Lpf Granular - /Lpf WBC 5-7 /Hpf RBC 2-3 /Hpf Mucus - /Lpf Epith FILLED /Lpf Bacteria MOD /Hpf Amorphous - /Lpf Crystals - /Lpf CBC With Diff (a) 10/09/1997 [facility] WBC 8.6 /Hpf 3.6 - 9.6 (607)- [...] fl 7.4 - 10.4 Chol,Tri,HDL,VLDL,Chol//HDL 10/09/1997 [facility] HDL-Chol 89.4 mg/dL > 35 (607)- - Cholesterol 220 mg/dL High < 200 Triglyceride 77 mg/dL 35 - 160 LDL-Calculated 115 mg/dL <130 VLDL 15 mg/dL 6 - 40 Cholesterol / HDL Ratio 2.5 14 Element 10/09/1997 [facility] Alkaline Phosphatase 90 U/L 48 - 168 [...] No. of containers..01 CYTYC Thin Prep Vial [id number] NEGATIVE FOR INTRAEPITHELIAL LESION AND MALIGNANCY. 3 Satisfactory for evaluation. Endocervical and/or squamous metaplastic cells (endocervical component) are present. 4 Z01.419 5 Barney Early, Glazier Stained Glass ([facility]) 6 The Pap smear is a screening [...] > or= 3.0 U. Studies performed at [facility] indicate that positive MARY results <3.0 U are rarely accompanied by positive second order tests. Test Performed by: [place] [address] Reservation Agent: Arturo Eduardo II, M.D., Ph.D. 12 Acute inflammation: >10.00 13 Serologic response to B. burgdorferi infection is not detected, but cannot rule out early infection during which low or undetectable antibody levels to B. burgdorferi may be present. If clinically indicated, a new serum specimen should be submitted in 7-14 days. Test Performed by: [facility] [place] [address] Reservation Agent: Arturo Eduardo II, M.D., Ph.D. 14 PATIENT [...] 5 Kidney failure <15 (or dialysis) 16 [employer], [employer]. DEPARTMENT OF PATHOLOGY or Extension 8353 PARISH VISITOR CYTOLOGY REPORT PATIENT: STARLA VARELA : 1950 AGE: 61 Y SEX: F ACCT: [id number] PROCEDURE DATE: 07/19/2012 DATE RECEIVED: 07/20/2012 REQUESTING PHYSICIAN: TRISHA MCKNIGHT NP LOCATION: [facility] Case No. 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 00 UA Pap Smear performed at [place] Dir: Fern Turcios MD, [address] [facility] [address] 01 esl tutor [facility] [place] Dir: Barney Dacosta MD, [address] [facility] [address] 02 [facility] [place] Dir: Arturo Skinner MD, [address] [place] [phone] For inquiries regarding HPV test results, the physician may contact [facility]: [phone] "" 17 Vitamin D deficiency has been defined by the [place] of Medicine and an Endocrine Society practice guideline as a level of serum 25-OH vitamin D less than 20 ng/mL (1,2). The Endocrine Society went on to further define vitamin D insufficiency as a level between 21 and 29 ng/mL (2). 1. IOM ([place] of Medicine). 2010. Dietary reference intakes for calcium and D. [place]: The National Academies Press. 2. Kang MCKINNEY, Juan R AMADOR, Juan C STEVENSON, et al. Evaluation, treatment, and prevention of vitamin D deficiency: an Endocrine Society clinical practice guideline. JCEM. 2010; 96(7):1911-30. 18 COLLECTED FROM 10/23/08929 THROUGH 10/24/08929. 19 Please note change in reference range effective 08 . 20 REFERENCE RANGE: AM 8.7-22.4 PM LESS THAN 10 . 21 -- REFERENCE VALUE -- 25-HYDROXY D TOTAL (D2+D3) Optimum levels in the normal population are 25-80 Test Performed by: [facility] Dpt of Lab Med and Pathology [address] [place] [address] Reservation Agent: Hayden Bojorquez III, M.D. 22 FASTING; 1 [...] PATTERN. Procedures Date Code Description Status 01/08/2017 10983 Electrocardiogram Complete Completed 09/18/2016 [id number] Mammogram Completed 05/15/2015 [id number] Mammogram Completed 12/06/2014 80192 Pulse Oximetry Completed 11/05/2014 68692 Pulse Oximetry Completed 11/05/2014 02865 Electrocardiogram Complete Completed 06/27/2013 63940 Pulse Oximetry Completed 04/07/2013 73490 Dxa Bone Density Vertebarl FX Assessment Completed 04/07/2013 81665 Dxa Bone Density Study One Or More Sites Axial Completed Skeleton 03/31/2013 [id number] Mammogram Completed 03/13/2013 [id number] Bone Mineral Density Test Completed 08/23/2010 25747 Pulse Oximetry Completed 05/14/2009 [id number] Colonoscopy Completed 06/15/2007 [id number] Mammogram Completed 12/06/2006 [id number] Mammogram Completed 05/07/2006 [id number] Mammogram Completed 10/09/1997 22260 Electrocardiogram Complete Completed Encounters Type Date Location Provider Dx Diagnosis Office Visit 11/17/2018 [facility] Zuleyka TaborYash J15.9 Unspecified 1:00p DEONDRE Hung bacterial pneumonia Office Visit 01/27/2018 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 MELANI Will R05 Cough J06.9 Acute upper respiratory infection, unspecified J45.998 Other asthma Office Visit 04/26/2017 9:00a [facility] Trisha Z01.419 Encntr for mountain services manager [place], exam (general) Afnp-C (routine) w/o abn findings Office Visit 01/08/2017 2:00p [facility] Ramakrishna Adames F32.89 Other specified Monica Lundberg depressive episodes R21 Rash and other nonspecific skin eruption M81.0 Age-related osteoporosis w/o current pathological fracture R31.9 Hematuria, unspecified R05 Cough G60.9 Hereditary and idiopathic neuropathy, unspecified Z00.00 Encntr for general adult medical exam w/o abnormal findings Office Visit 04/06/2016 10:40a [facility] Ramakrishna Lundberg M25.551 Pain in M.D. right hip R05 Cough Office Visit 11/22/2015 10:20a [facility] Ramakrishna Adames R21 Rash and other Monica Lundberg nonspecific skin eruption M81.0 Age-related osteoporosis w/o current pathological fracture Z80.0 Family history of malignant neoplasm of digestive organs F32.8 Other depressive episodes Office Visit 05/08/2015 9:15a [facility] Trisha 311 Depressive [place], Afnp-C Disorder Not Elsewhere Spec V76.19 Screening Breast Exam Malignant Neoplasms Other V76.10 Screening For Malignant Neoplasm Breast 924.3 Contusion Toe Office Visit 12/06/2014 1:00p Main Office Ramakrishna FYash 466.0 Bronchitis Acute Monica Lundberg Office Visit 11/05/2014 3:50p [facility] Ramakrishna FYash 466.0 Bronchitis Acute Monica Lundberg 733.00 Osteoporosis Unspec 786.59 Pain Chest Other Office Visit 05/09/2014 4:30p Main Office Trisha Mcknight, V72.31 Routine Traveling Buyer Afnp-C Examination 311 Depressive Disorder Not Elsewhere Spec 733.00 Osteoporosis Unspec Office Visit 02/14/2014 9:15a [facility] Teresa Melgar, 466.0 Bronchitis Acute TEXTBOOK ASSOCIATE 372.00 Conjunctivitis Acute Unspec Office Visit 10/06/2013 1:40p [facility] Ramakrishna Adames 733.00 Osteoporosis Office Monica Lundberg Unspec 311 Depressive Disorder Not Elsewhere Spec v04.81 Need For Prophylactic Vaccination & Inoculation/Influenza Office Visit 06/27/2013 1:00p [facility] Trisha 461.0 Sinusitis Acute [place], Afnp-C Maxillary Office Visit 03/24/2013 3:00p [facility] Ramakrishnasummer Adames 311 Depressive Monica Lundberg Disorder Not Elsewhere Spec 733.00 Osteoporosis Unspec 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 465.9 URI Upper Respiratory Infections Acute Unspec [...] Nonvenomous W/O Infect Office Visit 06/18/2008 1:00p 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
--- NOTE | 2018-11-29 21:30 | ED ---
Throat Pain/Nasal Congestion - HPI Summary HPI Summary: This patient is a 68 year old F presenting to [facility] with a chief complaint of a partial loss of vision in her right eye at 20:00 today for about 15 minutes. Patient stood up from the couch and all of a sudden felt dizzy and couldnt see out of the middle, left, and bottom parts of her right eye. She describes these parts as looking dark bluish. She reports that her peripheral vision was working at the time. The vision in the middle and left parts returned first before the vision in the bottom part of her eye did. Patient has never experienced anything like this before. Her last eye checkup was about 2 years ago. She has early stage cataracts and wears blended lenses for both far- sighted and near-sightedness. Patient recently had pneumonia took antibiotics, but she has finished with the antibiotics. Patient does not take aspirin daily. - History of Current Complaint Chief Complaint: EDGeneral Time Seen by Provider: 11/29/18 21:14 Hx Obtained From: Patient Onset/Duration: Sudden Onset, Lasting Minutes - 15 minutes, Resolved Severity: Moderate - Allergies/Home Medications Allergies/Adverse Reactions: Allergies Allergy/AdvReac Type Severity Reaction Status Date / Time No Known Allergies Allergy Verified 11/29/18 20:47 PMH/Surg Hx/FS Hx/Imm Hx Endocrine/Hematology History: Denies: Hx Diabetes Cardiovascular History: Denies: Hx Hypertension Respiratory History: Reports: Hx Chronic Obstructive Pulmonary Disease (COPD) - States parents were heavy smokers, Hx Pneumonia, Other Respiratory Problems/ Disorders - HX of pneumonia 1994 / CHRONIC NON PRODUCTIVE COUGH MANY YEARS History: Denies: Hx Renal Disease Musculoskeletal History: Reports: Hx Osteoporosis Sensory History: Reports: Hx Contacts or Glasses - glasses Denies: Hx Cataracts, Hx Hearing Aid Opthamlomology History: Reports: Hx Contacts or Glasses - glasses Denies: Hx Cataracts Neurological History: Reports: 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 Grandparents: cancer Family History: Parents who were heavy smokers. - Social History Alcohol Use: Occasionally Substance Use Type: Reports: None Smoking Status (MU): Never Smoked Tobacco Review of Systems Positive: Other - Partial loss of vision in her right eye for about 15 minutes Neurological: Other - Dizziness All Other Systems Reviewed And Are Negative: Yes Physical Exam - Summary Physical Exam Summary: VITAL SIGNS: Reviewed. GENERAL: Patient is a well-developed and nourished FEMALE who is lying comfortable in the stretcher. Patient is not in any acute respiratory distress. HEAD AND FACE: No signs of trauma. No ecchymosis, hematomas or skull depressions. No sinus tenderness. EYES: PERRLA, EOMI x 2, No injected conjunctiva, no nystagmus. EARS: Hearing grossly intact. Ear canals and tympanic membranes are within normal limits. MOUTH: Oropharynx within normal limits. NECK: Supple, trachea is midline, no adenopathy, no JVD, no carotid bruit, no c- spine tenderness, neck with full ROM. CHEST: Symmetric, no tenderness at palpation LUNGS: Clear to auscultation bilaterally. No wheezing or crackles. CVS: Regular rate and rhythm, S1 and S2 present, no murmurs or gallops appreciated. ABDOMEN: Soft, non-tender. No signs of distention. No rebound no guarding, and no masses palpated. Bowel sounds are normal. EXTREMITIES: FROM in all major joints, no edema, no cyanosis or clubbing. NEURO: Alert and oriented x 3. No acute neurological deficits. Speech is normal and follows commands. SKIN: Dry and warm Triage Information Reviewed: Yes Vital Signs On Initial Exam: Initial Vitals Temp Pulse Resp BP Pulse Ox 98.2 F 88 20 109/74 97 11/29/18 20:40 11/29/18 20:40 11/29/18 20:40 11/29/18 20:40 11/29/18 20:40 Vital Signs Reviewed: Yes Diagnostics - Vital Signs Vital Signs Temp Pulse Resp BP Pulse Ox 11/29/18 20:40 98.2 F 88 20 109/74 97 - Laboratory Result Diagrams: 11/29/18 21:36 11/29/18 21:36 Lab Statement: Any lab studies that have been ordered have been reviewed, and results considered in the medical decision making process. - CT Brain CT CT Interpretation Completed By: Radiologist Summary of CT Findings: 23:18 - No acute intracranial abnormality. ED Physician has reviewed this imaging report. Head CTA CT Interpretation Completed By: Radiologist Summary of CT Findings: 23:17. Normal head CTA. Physician has reviewed this imaging report. - EKG 22:02 Cardiac Rate: NL - 78 BPM EKG Rhythm: Sinus Rhythm - Normal axis. Normal interval. No ischemic changes. Re-Evaluation - Re-Evaluation 1 Re-Evaluation Time: 00:11 Change: Unchanged Comment: Informed patient of her dx and follow up care plans. She understands and agrees. EENT Course/Dx - Course Course Of Treatment: This patient is a 68 year old F presenting to [facility] with a chief complaint of a partial loss of vision in her right eye at 20:00 today for about 15 minutes. Patient remained asymptomatic in the emergency room. Brain CT, head CTA, and chest x-ray were all normal. Patient was d/c with a dx of TIA. She was informed and referred to Dr. Castro, neurologist, and told to follow up with her eye doctor. - Diagnoses Provider Diagnoses: TIA (transient ischemic attack) Discharge - Sign-Out/Discharge Documenting (check all that apply): Patient Departure - D/C home Patient Received Moderate/Deep Sedation with Procedure: No - Discharge Plan Condition: Stable Disposition: HOME Patient Education Materials: Transient Ischemic Attack (ED) Referrals: Ramakrishna Lundberg MD [Primary Care Provider] - 2 Days Asad Castro MD [Medical Doctor] - 2 Days Additional Instructions: RETURN TO THE EMERGENCY DEPARTMENT FOR CHANGING OR WORSENING SYMPTOMS. FOLLOW UP WITH PCP, EYE DOCTOR, AND DR. CASTRO FROM NEUROLOGY IN 1-2 DAYS. Take aspirin everyday. - Attestation Statements Document Initiated by Scribe: Yes Documenting Scribe: Moris Contreras Provider For Whom Scribe is Documenting (Include Credential): Cortez Wagner MD Scribe Attestation: Moris Jimenez scribed for Cortez Wagner MD on 11/30/18 at 0012. Status of Scribe Document: Ready
[2018-11-29 21:44] LABS: ABS Basophils 0 10^3/ul (0-0.2); ABS Eosinophils 0.2 10^3/ul (0-0.6); ABS Lymphocytes 2.2 10^3/ul (1.0-4.8); ABS Monocytes 0.7 10^3/ul (0-0.8); ABS Neutrophils 5.1 10^3/ul (1.5-7.7); ABS Nucleated RBC 0 10^3/ul; Eosinophil % 2.8 %; Hematocrit 40 % (33-41); Hemoglobin 13.1 g/dL (12.0-16.0); Lymphocyte % 27.1 %; Mean Corpuscular HGB Conc 33 g/dL (31-36); Mean Corpuscular Hemoglobin 31 pg (27-31); Mean Corpuscular Volume 93 fL (80-97); Mean Platelet Volume 7.2 fL (7.4-10.4); Nucleated Red Blood Cells % 0.1; Platelet Count 365 10^3/uL (150-450); Red Blood Count 4.28 10^6 /uL (3.70-4.87); Red Cell Distribution Width 14 % (10.5-15); White Blood Count 8.3 10^3/uL (3.5-10.8)
[2018-11-29 22:01] LABS: Albumin 4.1 g/dL (3.2-5.2); Albumin/Globulin Ratio 1.7 (1-3); BUN/Creatinine Ratio 25.3 (8-20); Calcium 9.4 mg/dL (8.6-10.3); EGFR African American 78.8 (>60); EGFR Non-African American 65.1 (>60); Globulin 2.4 g/dL (2-4); Potassium 4.6 mmol/L (3.5-5.0); Total Bilirubin 0.4 mg/dL (0.2-1.0); Total Protein 6.5 g/dL (6.4-8.9)
[2018-11-29 22:02] LABS: Activated Partial Thrombo Time 28.4 seconds (26.0-36.3); INR 1.02 (0.77-1.02)
[2018-11-29] MEDS ORDERED: Iohexol 350* (CONTRAST) 500 ML MDV IV ONE (22:20)
[2018-11-30] MEDS ORDERED: Aspirin TAB* 325 MG PO ONE (00:08)
[2018-11-30 00:20] VITALS: BP 105/80
== END 2018-11-30 00:42 | disposition home or self-care (01) ==
LOC: ED 20:33
DX: G45.9 Transient cerebral ischemic attack, unspecified (principal); R42 Dizziness and giddiness; J44.9 Chronic obstructive pulmonary disease, unspecified
CPT/HCPCS: 36415; 70450; 70496; 70498; 80053; 85025; 85610; 85730; 93005; 99283; Q9967

== ENCOUNTER 2021-08-25 09:18 | Inpatient (IN) ==
[2021-08-25 10:11] LABS: ABS Basophils 0.1 10^3/ul (0-0.2); ABS Eosinophils 0.2 10^3/ul (0-0.6); ABS Lymphocytes 1.8 10^3/ul (1.0-4.8); ABS Monocytes 0.4 10^3/ul (0-0.8); ABS Neutrophils 2.8 10^3/ul (1.5-7.7); Eosinophil % 3.5 %; Hematocrit 37 % (35-47); Hemoglobin 12.5 g/dL (12.0-16.0); Lymphocyte % 33.8 %; Mean Corpuscular HGB Conc 34 g/dL (31-36); Mean Corpuscular Hemoglobin 31 pg (27-31); Mean Corpuscular Volume 93 fL (80-97); Nucleated Red Blood Cells % 0.1; Platelet Count 223 10^3/uL (150-450); Red Blood Count 4.01 10^6 /uL (3.70-4.87); Red Cell Distribution Width 14 % (10-15); White Blood Count 5.2 10^3/uL (3.5-10.8)
[2021-08-25] MEDS ORDERED: Lactated Ringers 1000 ml BAG 1,000 ML IV ONE (10:13)
[2021-08-25] MEDS ORDERED: Ondansetron 4 mg VIAL 2 MG/ML 2 ml VIAL IV ONE (10:14)
[2021-08-25 10:19] LABS: Activated Partial Thrombo Time 27.6 seconds (26.0-38.0); INR 1.03 (0.86-1.15)
[2021-08-25 10:29] LABS: Potassium 3.7 mmol/L (3.5-5.0)
[2021-08-25 10:30] LABS: Albumin 4.2 g/dL (3.2-5.2); Albumin/Globulin Ratio 1.8 (1-3); Calcium 9.1 mg/dL (8.6-10.3); Globulin 2.3 g/dL (2-4); Total Bilirubin 0.5 mg/dL (0.2-1.0); Total Protein 6.5 g/dL (6.4-8.9); eGFR CKD-EPI 86.7 (>60)
[2021-08-25] MEDS ORDERED: levETIRAcetam 1000MG IVPREMIX 1,000 MG/100 ML BAG IVPB ONE (11:03)
[2021-08-25] MEDS: Lidocaine PATCH 5% PATCH TRANSDERM SCH (15:50)
[2021-08-25] MEDS: Lidocaine Patch REMOVE NOTE PATCH OFF SCH (21:47)
[2021-08-26] MEDS ORDERED: Acetaminophen IV 1 GM/100ML 100 ML IV PRN (00:16)
[2021-08-26 05:13] LABS: ABS Eosinophils 0.1 10^3/ul (0-0.6); ABS Lymphocytes 1.5 10^3/ul (1.0-4.8); ABS Monocytes 0.6 10^3/ul (0-0.8); ABS Neutrophils 4.6 10^3/ul (1.5-7.7); Eosinophil % 1.5 %; Hematocrit 36 % (35-47); Hemoglobin 12.2 g/dL (12.0-16.0); Lymphocyte % 22.4 %; Mean Corpuscular HGB Conc 34 g/dL (31-36); Mean Corpuscular Hemoglobin 32 pg (27-31); Mean Corpuscular Volume 94 fL (80-97); Mean Platelet Volume 7.7 fL (7.4-10.4); Platelet Count 198 10^3/uL (150-450); Red Blood Count 3.88 10^6 /uL (3.70-4.87); Red Cell Distribution Width 14 % (10-15); White Blood Count 6.9 10^3/uL (3.5-10.8)
[2021-08-26 05:31] LABS: Calcium 8.8 mg/dL (8.6-10.3); Magnesium 2.3 mg/dL (1.9-2.7); Phosphorus 3.8 mg/dL (2.5-5.0); Potassium 3.9 mmol/L (3.5-5.0); eGFR CKD-EPI 95.5 (>60)
[2021-08-26] MEDS ORDERED: Potassium Chlor 20 meq TAB.ER PO ONE (07:24)
[2021-08-26] MEDS ORDERED: NS 0.9% 1000 ml BAG 1,000 ML IV SCH ×2 (08:30→10:31)
[2021-08-26] MEDS: Lidocaine PATCH 5% PATCH TRANSDERM SCH (09:59)
[2021-08-26] MEDS: Lidocaine Patch REMOVE NOTE PATCH OFF SCH (21:05)
[2021-08-27] MEDS: Lidocaine PATCH 5% PATCH TRANSDERM SCH (07:48)
[2021-08-27 11:51] VITALS: BP 103/59
== END 2021-08-27 17:45 | disposition home or self-care (01) | DRG 83 ==
LOC: ED 09:18 → SUATTDRO 14:20 → EDHOLD 14:20 → ICU 16:35 → MEDTELE 08-26 17:40
PROVIDERS: ADMIT Student in an Organized Health Care Education/Training Program; ATTEND Hospitalist